=== PATIENT | male | born 1950 | race Caucasian/White ===

== ENCOUNTER 2016-12-04 10:32 | Inpatient (IN) | payer MEDICARE ==
[2016-12-04] VITALS (10 sets, daily range): BP systolic 99–145; BP diastolic 46–67; PULSE 73–104; RESP 15–20; TEMP 97.3–98.9; O2SAT 93–98
[~2016-12-04] VITALS: Ht 167.6 cm; Wt 52.7 kg
[~2016-12-04 10:32] MED LIST: FOLI1 PO; THIA100T PO; Z.0.OXYGENDME NC
[2016-12-04] MEDS ORDERED: SODIUM CHLOR 0.9% 1000 ML INJ 1,000 ML IV SCH ×2 (10:47→14:00)
--- NOTE | 2016-12-04 10:53 | PD ---
HPI Chief Complaint: General Weakness Time Seen by Provider: 10:38 Travel History International Travel<30 days: No Contact w/Intl Traveler<30days: No Traveled to known affect area: No History of Present Illness HPI The patient is a 66-year-old male who presents emergency department for generalized weakness, lower extremity weakness, and multiple falls. The patient states her last several weeks he has had decreasing energy and now states that his legs are "giving out ". The patient states he is also had multiple falls in the last week and it struck his head several times, denies any loss of consciousness. The patient does have a history of similar symptoms in the fall of 2016, he cannot recall the diagnosis. The patient does have a history of alcohol use, drinks approximately 1 pint of liquor per day. He denies any dark colored stools or black tarry stools over the last several weeks. The patient denies any chest pain, shortness breath, nausea, vomiting, or abdominal pain. He does complain of generalized lethargy and weakness. He does not currently have a primary physician. PFSH Past Medical History Autoimmune Disease: No Cancer: No Cardiovascular Problems: No Endocrine: No Genitourinary: No Immune Disorder: No Musculoskeletal: No Neurologic: No Psychiatric: No Reproductive: No Social History Alcohol Use: Yes (PT STATES 1 LARGE BOTTLE OF WINE AND BEER DAILY) Tobacco Use: Yes (2 PPD) Substance Use: No Allergies-Medications (Allergen,Severity, Reaction): Coded Allergies: No Known Allergies (Unverified , 12/04/16) Reported Meds & Prescriptions Reported Meds & Active Scripts Active Review of Systems Except as stated in HPI: all other systems reviewed are Neg General / Constitutional: No: Fever HENT: No: Lightheadedness Cardiovascular: No: Chest Pain or Discomfort Respiratory: No: Shortness of Breath Gastrointestinal: No: Nausea, Vomiting, Abdominal Pain Genitourinary: No: Dysuria Musculoskeletal: Positive: Weakness Neurologic: Positive: Weakness, No: Dizziness Psychiatric: Positive: Substance Abuse (alcohol abuse) Physical Exam Narrative GENERAL: Awake, alert, pleasant 66-year-old male who appears his stated age and is in no acute respiratory distress. SKIN: Focused skin assessment warm/dry. Pale complexion. HEAD: Atraumatic. Normocephalic. EYES: Pupils equal and round. Pallor to the lower lids and conjunctiva noted. ENT: No nasal bleeding or discharge. Dry mucous membranes. Poor dentition. NECK: Trachea midline. No JVD. CARDIOVASCULAR: Regular, tachycardic with a heart rate of 103. RESPIRATORY: No accessory muscle use. Clear to auscultation. Breath sounds equal bilaterally. GASTROINTESTINAL: Abdomen soft, non-tender, nondistended. No rebound tenderness. Rectal: No gross blood. Guaiac negative. MUSCULOSKELETAL: No obvious deformities. No clubbing. No cyanosis. No edema. NEUROLOGICAL: Awake and alert. No obvious cranial nerve deficits. Motor grossly within normal limits. Normal speech. Nonfocal. Oriented 3. Follows commands without difficulty. PSYCHIATRIC: Appropriate mood and affect; insight and judgment normal. Data Data Last Documented VS Vital Signs Date Time Temp Pulse Resp B/P Pulse Ox O2 Delivery O2 Flow Rate FiO2 12/04/16 12:46 87 18 110/53 96 Nasal Cannula 2 12/04/16 10:34 98.2 Orders Electrocardiogram (12/04/16 10:47) Complete Blood Count With Diff (12/04/16 10:47) Comprehensive Metabolic Panel (12/04/16 10:47) Creatine Kinase (Cpk) (12/04/16 10:47) Prothrombin Time / Inr (Pt) (12/04/16 10:47) Act Partial Throm Time (Ptt) (12/04/16 10:47) Troponin I (12/04/16 10:47) Thyroid Stimulating Hormone (12/04/16 10:47) Urinalysis - C+S If Indicated (12/04/16 10:47) Chest, Single Ap (12/04/16 10:47) Ct Brain W/O Iv Contrast(Rout) (12/04/16 10:47) Blood Glucose (12/04/16 10:47) Ecg Monitoring (12/04/16 10:47) Iv Access Insert/Monitor (12/04/16 10:47) Oximetry (12/04/16 10:47) Sodium Chloride 0.9% Flush (Ns Flush) (12/04/16 11:00) Sodium Chlor 0.9% 1000 Ml Inj (Ns 1000 M (12/04/16 10:47) Alcohol (Ethanol) (12/04/16 10:47) Lactic Acid (12/04/16 10:47) Potassium Chloride Eff (K-Lyte Cl Eff) (12/04/16 12:00) Iron/Tibc Profile (12/04/16 12:23) Ldh Serum (12/04/16 12:23) Type And Screen (12/04/16 12:23) Red Blood Cells (Rbc) (12/04/16 12:24) Blood Product Administration .UPON TRANSFUSION (12/04/16 12:24) Sodium Chlor 0.9% 250 Ml Inj (Ns 250 Ml (12/04/16 12:30) Diphenhydramine Inj (Benadryl Inj) (12/04/16 12:30) Acetaminophen (Tylenol) (12/04/16 12:30) Retic Count (12/04/16 12:43) Labs Laboratory Tests Test 12/04/16 12/04/16 12/04/16 10:45 11:15 11:50 Sodium Level 132 MEQ/L Potassium Level 2.6 MEQ/L Chloride Level 87 MEQ/L Carbon Dioxide Level 28.5 MEQ/L Anion Gap 17 MEQ/L Blood Urea Nitrogen 17 MG/DL Creatinine 1.24 MG/DL Estimat Glomerular Filtration 58 ML/MIN Rate Random Glucose 113 MG/DL Lactic Acid Level 3.6 mmol/L Calcium Level 8.1 MG/DL Total Bilirubin 1.5 MG/DL Aspartate Amino Transf 95 U/L (AST/SGOT) Alanine Aminotransferase 36 U/L (ALT/SGPT) Alkaline Phosphatase 140 U/L Total Creatine Kinase 77 U/L Troponin I LESS THAN 0.02 NG/ML Total Protein 6.8 GM/DL Albumin 2.9 GM/DL Thyroid Stimulating Hormone 3.420 uIU/ML 3rd Gen Ethyl Alcohol Level LESS THAN 3 MG/DL Urine Color LIGHT-RED Urine Turbidity CLEAR Urine pH 6.0 Urine Specific [place] 1.019 Urine Protein TRACE mg/dL Urine Glucose (UA) NEG mg/dL Urine Ketones 10 mg/dL Urine Occult Blood NEG Urine Nitrite NEG Urine Bilirubin NEG Urine Urobilinogen 4.0 MG/DL Urine Leukocyte Esterase NEG Urine RBC LESS THAN 1 /hpf Urine WBC 2 /hpf Urine Squamous Epithelial <1 /hpf Cells Urine Hyaline Casts 7 /lpf Urine Mucus FEW /lpf Microscopic Urinalysis Comment CATH-CULT NOT IND White Blood Count 27.8 TH/MM3 Red Blood Count 1.75 MIL/MM3 Hemoglobin 5.5 GM/DL Hematocrit 16.7 % Mean Corpuscular Volume 95.3 FL Mean Corpuscular Hemoglobin 31.3 PG Mean Corpuscular Hemoglobin 32.8 % Concent Red Cell Distribution Width 18.4 % Platelet Count 1037 TH/MM3 Mean Platelet Volume 9.2 FL Neutrophils (%) (Auto) % Lymphocytes (%) (Auto) % Monocytes (%) (Auto) % Eosinophils (%) (Auto) % Basophils (%) (Auto) % Neutrophils # (Auto) TH/MM3 Lymphocytes # (Auto) TH/MM3 Monocytes # (Auto) TH/MM3 Eosinophils # (Auto) TH/MM3 Basophils # (Auto) TH/MM3 CBC Comment AUTO DIFF Prothrombin Time 13.5 SEC Prothromb Time International 1.2 RATIO Ratio Activated Partial 25.5 SEC Thromboplast Time MDM Medical Decision Making Medical Screen Exam Complete: Yes Emergency Medical Condition: Yes Medical Record Reviewed: Yes Interpretation(s) EKG reveals normal sinus rhythm with a rate in 91. Sharp urine level of [address] and T-wave changes. Last Impressions Head CT 12/04/[id number] Signed Impressions: Service Date/Time: Sunday, December 04, 2016 11:18 - CONCLUSION: Negative for an acute process.. Phoenix Mcknight MD FACR Chest X-Ray 12/04/161046 Signed Impressions: Service Date/Time: Sunday, December 04, 2016 10:44 - CONCLUSION: COPD. No evidence of acute process. Harjinder Stubbs MD Laboratory Tests Test 12/04/16 12/04/16 12/04/16 10:45 11:15 11:50 Sodium Level 132 MEQ/L Potassium Level 2.6 MEQ/L Chloride Level 87 MEQ/L Carbon Dioxide Level 28.5 MEQ/L Anion Gap 17 MEQ/L Blood Urea Nitrogen 17 MG/DL Creatinine 1.24 MG/DL Estimat Glomerular Filtration 58 ML/MIN Rate Random Glucose 113 MG/DL Lactic Acid Level 3.6 mmol/L Calcium Level 8.1 MG/DL Total Bilirubin 1.5 MG/DL Aspartate Amino Transf 95 U/L (AST/SGOT) Alanine Aminotransferase 36 U/L (ALT/SGPT) Alkaline Phosphatase 140 U/L Total Creatine Kinase 77 U/L Troponin I LESS THAN 0.02 NG/ML Total Protein 6.8 GM/DL Albumin 2.9 GM/DL Thyroid Stimulating Hormone 3.420 uIU/ML 3rd Gen Ethyl Alcohol Level LESS THAN 3 MG/DL Urine Color LIGHT-RED Urine Turbidity CLEAR Urine pH 6.0 Urine Specific [place] 1.019 Urine Protein TRACE mg/dL Urine Glucose (UA) NEG mg/dL Urine Ketones 10 mg/dL Urine Occult Blood NEG Urine Nitrite NEG Urine Bilirubin NEG Urine Urobilinogen 4.0 MG/DL Urine Leukocyte Esterase NEG Urine RBC LESS THAN 1 /hpf Urine WBC 2 /hpf Urine Squamous Epithelial <1 /hpf Cells Urine Hyaline Casts 7 /lpf Urine Mucus FEW /lpf Microscopic Urinalysis Comment CATH-CULT NOT IND White Blood Count 27.8 TH/MM3 Red Blood Count 1.75 MIL/MM3 Hemoglobin 5.5 GM/DL Hematocrit 16.7 % Mean Corpuscular Volume 95.3 FL Mean Corpuscular Hemoglobin 31.3 PG Mean Corpuscular Hemoglobin 32.8 % Concent Red Cell Distribution Width 18.4 % Platelet Count 1037 TH/MM3 Mean Platelet Volume 9.2 FL Neutrophils (%) (Auto) % Lymphocytes (%) (Auto) % Monocytes (%) (Auto) % Eosinophils (%) (Auto) % Basophils (%) (Auto) % Neutrophils # (Auto) TH/MM3 Lymphocytes # (Auto) TH/MM3 Monocytes # (Auto) TH/MM3 Eosinophils # (Auto) TH/MM3 Basophils # (Auto) TH/MM3 CBC Comment AUTO DIFF Prothrombin Time 13.5 SEC Prothromb Time International 1.2 RATIO Ratio Activated Partial 25.5 SEC Thromboplast Time Differential Diagnosis Differential diagnosis includes symptomatic anemia, subdural hemorrhage, cirrhosis, hypoalbuminemia, failure to thrive, hyponatremia, dehydration. Narrative Course IV was established, labs are drawn and sent, and the patient was placed on cardiac telemetry monitoring and continuous pulse oximetry monitoring. EKG was ordered and interpreted. CT of the brain was ordered to rule out subdural hemorrhage. Chest x-ray was obtained. The patient was administered 1 L of IV fluids. The patient's white count is elevated, however, patient is afebrile. Hemoglobin is 5.5, therefore, the patient was ordered 2 units of packed red blood cells with 2 units to be held for later. The patient has symptomatic anemia with elevated white count and elevated platelets, consistent with withdrawal cytosis. I reviewed the EMR, patient is had elevated white count, anemia, and from cytosis in the past. Rectal exam was performed, was guaiac- negative. The patient will be admitted to the on-call medical service, he may benefit from hematology consultation. [facility] Point of Care Internal Pos. & Neg. Controls: Passed Fecal Specimen Occult Blood: Negative Physician Communication Physician Communication The on-call medical service was paged for admission. I discussed the patient with Dr. Prince who agrees with admission. Diagnosis Primary Impression: Symptomatic anemia Additional Impressions: Leukocytosis Qualified Code: D72.829 - Leukocytosis, unspecified type Thrombocytosis Admitting Information Admitting Physician Requests: Admit Condition: Stable Titi Gay MD December 04, 2016 10:53
[2016-12-04] MEDS ORDERED: SODIUM CHLORIDE 0.9% FLUSH 10 ML FLUSH IVF PRN (11:00)
--- NOTE | 2016-12-04 11:08 | RADRPT ---
EXAM DATE/TIME: 12/04/2016 10:44 [facility] COMPARISON: CHEST SINGLE AP, March 30, 2016, 11:00. INDICATIONS : Patient states syncopal episode today. MEDICAL HISTORY : Chronic obstructive pulmonary disease. SURGICAL HISTORY : None. ENCOUNTER: Initial ACUITY: 1 day PAIN SCORE: 0/10 LOCATION: Bilateral chest FINDINGS: Lungs are hyperinflated. There is no evidence of consolidating airspace disease or mass. Heart and mediastinal structures are stable. CONCLUSION: COPD. No evidence of acute process. Harjinder Stubbs MD on December 04, 2016 at 11:05 Board Certified Radiologist. This report was verified electronically.
--- NOTE | 2016-12-04 11:28 | RADRPT ---
EXAM DATE/TIME: 12/04/2016 11:18 [facility] COMPARISON: No previous studies available for comparison. INDICATIONS : Generalized weakness, lower extremity weakness, and multiple falls. RADIATION DOSE: 36.58 CTDIvol (mGy) MEDICAL HISTORY : None SURGICAL HISTORY : None. ENCOUNTER: Initial ACUITY: 2 weeks PAIN SCALE: 6/10 LOCATION: cranial TECHNIQUE: Multiple contiguous axial images were obtained of the head. Using automated exposure control and adj ustment of the mA and/or kV according to patient size, radiation dose was kept as low as reasonably a chievable to obtain optimal diagnostic quality images. FINDINGS: CEREBRUM: The ventricles are normal for age. No evidence of midline shift, mass lesion, hemorrhage or acute in farction. No extra-axial fluid collections are seen. POSTERIOR FOSSA: The cerebellum and brainstem are intact. The 4th ventricle is midline. The cerebellopontine angle i s unremarkable. EXTRACRANIAL: The visualized portion of the orbits is intact. SKULL: The calvaria is intact. No evidence of skull fracture. CONCLUSION: Negative for an acute process.. Phoenix Mcknight MD FACR on December 04, 2016 at 11:25 Board Certified Radiologist. This report was verified electronically.
[2016-12-04 11:45] LABS: BLOOD, URINE NEG (NEG); COMMENT (UR) CATH-CULT NOT IND; CULTURE IF INDICATED CATH CULTURE NOT IND; GLUCOSE,URINE NEG (NEG); HYALINE CAST, URINE 7 /lpf (RARE); KETONE, URINE 10 mg/dL (NEG); MUCUS URINE FEW /lpf (OCC); NITRITE,URINE NEG (NEG); SQUAMOUS EPITHELIAL CELL URINE <1 /hpf (0-5); URINE COLOR LIGHT-RED (YELLW/STRAW)
[2016-12-04 11:49] LABS: ALT (GPT) 36 U/L (12-78); ANION GAP 17 MEQ/L (5-15); AST (GOT) 95 U/L (15-37); BICARBONATE 28.5 MEQ/L (21.0-32.0); BLOOD UREA NITROGEN 17 MG/DL (7-18); CHLORIDE 87 MEQ/L (98-107); GLOMERULAR FILTRATION RATE 58 ML/MIN (>89); SODIUM (NA) 132 MEQ/L (136-145)
[2016-12-04 11:56] LABS: POTASSIUM 2.6 MEQ/L (3.5-5.1)
[2016-12-04 11:57] LABS: ALKALINE PHOSPHATASE 140 U/L (45-117); TOTAL BILIRUBIN ADULT 1.5 MG/DL (0.2-1.0)
[2016-12-04] MEDS ORDERED: POTASSIUM CHLORIDE 25 MEQ EFFERVESCENT TAB PO ONE (12:00)
[2016-12-04 12:01] LABS: CREATINE KINASE 77 U/L (39-308)
[2016-12-04 12:11] LABS: MEAN CELL VOLUME 95.3 FL (80.0-100.0); MEAN CORPUSCULAR HEMOGLOBIN 31.3 PG (27.0-34.0); MEAN CORPUSCULAR HGB CONC 32.8 % (32.0-36.0); PLATELET COUNT 1037 TH/MM3 (150-450); RED BLOOD COUNT 1.75 MIL/MM3 (4.50-5.90); RED CELL DISTRIBUTION WIDTH 18.4 % (11.6-17.2); WHITE BLOOD COUNT 27.8 TH/MM3 (4.0-11.0)
[2016-12-04 12:18] LABS: HEMO FLAGS AUTO DIFF
[2016-12-04 12:19] LABS: HEMATOCRIT 16.7 % (39.0-51.0)
[2016-12-04 12:24] LABS: INTERNATIONAL NORMALIZED RATIO 1.2 RATIO; PROTHROMBIN TIME - PATIENT 13.5 SEC (9.8-11.6)
[2016-12-04 12:25] LABS: APTT (PATIENT) 25.5 SEC (24.3-30.1)
[2016-12-04] MEDS ORDERED: diphenhydrAMINE HCL 50 MG/ML VIAL IV PRN (12:30)
[2016-12-04] MEDS ORDERED: ACETAMINOPHEN 325 MG TAB PO PRN ×2 (12:30→16:00)
[2016-12-04] MEDS ORDERED: SODIUM CHLOR 0.9% 250 ML INJ 250 ML IV ONE (12:30)
[2016-12-04 12:49] LABS: BANDS 34 % (0-6); BASOPHILS 3 % (0-2); METAMYELOCYTES 1 % (0-1); MYELOCYTES 8 % (0-0); NEUTROPHIL # MANUAL DIFF 24.7 TH/MM3 (1.8-7.7); PLATELET ESTIMATE SMEAR HIGH (NORMAL); PLATELET MORPHOLOGY NORMAL (NORMAL); POLYS (SEG NEUTROPHILS) 46 % (16-70); WBC DIFF SAMPLE 100
[2016-12-04 12:50] LABS: SCAN/DIFF FINAL DIFF MANUAL
--- NOTE | 2016-12-04 13:05 | HHI.HP ---
[facility] Service Family Medicine Primary Care Physician No Primary Care Physician Admission Diagnosis symptomatic anemia, thrombocytosis, leukocytosis, hypokalemia Diagnoses: International Travel<30 Days: No Contact w/Intl Traveler<30days: No Known Affected Area: No History of Present Illness Patient is a 66 year old male with a PMH significant for alcoholism and chronic anemia who presents with two-week history of bilateral LE weakness and falls. He has fallen 6 times in the last week due to "legs gave out." He has no preceding dizziness, headache, chest pain, palpitations, or paresthesias. He is able to walk normally at baseline but legs suddenly give out. He falls down and hit his head on the pavement, and has had no LOC ever. He does endorse some shortness of breath over the last couple of weeks as well. He feels tremulous after the episodes and is told he looks pale afterward. He has chronic bowel incontinence intermittently but denies loss of urine during falls. He denies upper extremity or focal weakness. No sick contacts or recent illnesses. He has a history of anemia per EMR last hospitalization in March 2016 at [facility] and patient states he recalls this vaguely. He recalls getting a transfusion at that time. Denies any current bleeding episodes, however, he does note having black stools with last few months. He reports not eating well due to poor appetite chronically. He has never had a colonoscopy. On review of records, patient was evaluated by medical oncology in February 2016; extensive workup was initiated including infectious workup, hematologic workup. He received 2 units of PRBCs. A bone marrow biopsy was recommended at that time and patient declined. (Maddy Prince MD R1) Review of Systems Constitutional: DENIES: Fever, Weight loss, Chills, Change in appetite Eyes: DENIES: Blurred vision, Diplopia Ears, nose, mouth, throat: DENIES: Tinnitus, Hearing loss, Throat pain, Ear Pain Respiratory: COMPLAINS OF: Shortness of breath, DENIES: Cough, Snoring, Wheezing, Hemoptysis Cardiovascular: DENIES: Chest pain, Palpitations, Syncope Gastrointestinal: COMPLAINS OF: Diarrhea (loose stools), DENIES: Abdominal pain, Black stools, Bloody stools, Constipation, Nausea, Vomiting Genitourinary: DENIES: Urinary frequency, Dysuria Musculoskeletal: DENIES: Joint pain, Muscle aches, Back pain Integumentary: DENIES: Pruritus, Rash Hematologic/lymphatic: DENIES: Bruising Neurologic: COMPLAINS OF: Tremor (after falls), Poor Balance, DENIES: Headache , Paresthesias, Seizures Psychiatric: DENIES: Anxiety, Confusion (Maddy Prince MD R1) Past Family Social History Past Medical History Anemia Bowel Incontinence related to alcohol use Past Surgical History None Reported Medications Reported Meds & Active Scripts Active (Maddy Prince MD R1) Allergies: Coded Allergies: No Known Allergies (Unverified , 12/04/16) Family History Mother: unknown Father: unknown causes, 3 MIs Siblings: alcoholics Children: daughter is healthy, hx alcohol and illicit drugs Social History Nicotine: smokes ~2ppd for 15 years Alcohol: pint of rum daily for years, trying to quit Illicit: marijuana Lives in [place] [facility] [place], home built in [address] (Maddy Prince MD R1) Physical Exam Vital Signs Vital Signs Date Time Temp Pulse Resp B/P Pulse Ox O2 Delivery O2 Flow Rate FiO2 12/04/16 12:46 87 18 110/53 96 Nasal Cannula 2 12/04/16 11:17 90 20 121/55 98 Room Air 12/04/16 11:04 88 20 145/67 93 Room Air 12/04/16 10:46 99 20 93 Room Air 12/04/16 10:34 98.2 104 15 99/46 95 Physical Exam GENERAL: Patient is a thin male lying in bed comfortably. SKIN: Warm and dry. Healing abrasions on the left knee and right dykes noted. His fingernails and toenails are dirty and he appears unkempt. HEAD: Atraumatic. Normocephalic. No scalp or cervical spine tenderness. EYES: PERRL. No scleral icterus. No injection or drainage. He does have conjunctival pallor. ENT: No nasal bleeding or discharge. Mucous membranes pink and moist. Uvula is midline and the tonsils are normal in appearance. NECK: Trachea midline. No JVD. CARDIOVASCULAR: Regular rate and rhythm. He does have a systolic ejection murmur at the LUSB RESPIRATORY: No accessory muscle use. Clear to auscultation. No crackles, wheezes,or rhonchi GASTROINTESTINAL: Abdomen soft, thin, non-tender, nondistended. Hepatic and splenic margins not palpable. Bowel sounds normal. MUSCULOSKELETAL: Extremities have 2+ pulses bilaterally in the UEs and LEs. He is noted to have 1+ pitting edema in the ankles bilaterally. No obvious deformities. NEUROLOGICAL: Awake and alert. fire boss II-XII intact. 2+ flexes in the patellae. Motor grossly within normal limits. His UAs and LEs have 5/5 strength on exam. Normal speech. PSYCHIATRIC: Appropriate mood and affect; insight and judgment normal. Laboratory Laboratory Tests Test 12/04/16 12/04/16 12/04/16 10:45 11:15 11:50 Sodium Level 132 Potassium Level 2.6 Chloride Level 87 Carbon Dioxide Level 28.5 Anion Gap 17 Blood Urea Nitrogen 17 Creatinine 1.24 Estimat Glomerular Filtration 58 Rate Random Glucose 113 Lactic Acid Level 3.6 Calcium Level 8.1 Total Bilirubin 1.5 Aspartate Amino Transf 95 (AST/SGOT) Alanine Aminotransferase 36 (ALT/SGPT) Alkaline Phosphatase 140 Total Creatine Kinase 77 Troponin I LESS THAN 0.02 Total Protein 6.8 Albumin 2.9 Thyroid Stimulating Hormone 3.420 3rd Gen Ethyl Alcohol Level LESS THAN 3 Urine Color LIGHT-RED Urine Turbidity CLEAR Urine pH 6.0 Urine Specific [place] 1.019 Urine Protein TRACE Urine Glucose (UA) NEG Urine Ketones 10 Urine Occult Blood NEG Urine Nitrite NEG Urine Bilirubin NEG Urine Urobilinogen 4.0 Urine Leukocyte Esterase NEG Urine RBC LESS THAN 1 Urine WBC 2 Urine Squamous Epithelial <1 Cells Urine Hyaline Casts 7 Urine Mucus FEW Microscopic Urinalysis Comment CATH-CULT NOT IND White Blood Count 27.8 Red Blood Count 1.75 Hemoglobin 5.5 Hematocrit 16.7 Mean Corpuscular Volume 95.3 Mean Corpuscular Hemoglobin 31.3 Mean Corpuscular Hemoglobin 32.8 Concent Red Cell Distribution Width 18.4 Platelet Count 1037 Mean Platelet Volume 9.2 Neutrophils (%) (Auto) Lymphocytes (%) (Auto) Monocytes (%) (Auto) Eosinophils (%) (Auto) Basophils (%) (Auto) Neutrophils # (Auto) Lymphocytes # (Auto) Monocytes # (Auto) Eosinophils # (Auto) Basophils # (Auto) CBC Comment AUTO DIFF Differential Total Cells 100 Counted Neutrophils % (Manual) 46 Band Neutrophils % 34 Lymphocytes % 4 Monocytes % 4 Basophils % 3 Neutrophils # (Manual) 24.7 Metamyelocytes 1 Myelocytes 8 Differential Comment FINAL DIFF MANUAL Platelet Estimate HIGH Platelet Morphology Comment NORMAL Prothrombin Time 13.5 Prothromb Time International 1.2 Ratio Activated Partial 25.5 Thromboplast Time (Maddy Prince MD R1) Result Diagram: 12/04/16 1150 12/04/16 1045 Imaging Last Impressions Head CT 12/04/16 1047 Signed Impressions: Service Date/Time: Sunday, December 04, 2016 11:18 - CONCLUSION: Negative for an acute process.. Phoenix Mcknight MD FACR Chest X-Ray 12/04/16 1047 Signed Impressions: Service Date/Time: Sunday, December 04, 2016 10:44 - CONCLUSION: COPD. No evidence of acute process. Harjinder Stubbs MD (Maddy Prince MD R1) Assessment and Plan Assessment and Plan 66-year-old male with a history of alcoholism who presents with lower extremity weakness and symptomatic anemia without evidence of shock. Code Status Full code Discussed Condition With Seen and discussed with Dr. Vernon and Dr. Gardiner (Maddy Prince MD R1) Attending Attestation Patient seen and examined. Case reviewed and discussed with the resident team. Agree with plan of care as discussed with me and documented in the resident note. (Poppy Vernon MD) Problem List: (1) Severe anemia Status: Acute Plan: He presents with severe anemia, H&H 5.5/16.7. Unclear etiology. He presented similarly in February 2016, however, his hemoglobin was somewhat higher at 6.5 at that time and he was discharged after 2 units PRBCs and extensive nondiagnostic workup. His symptoms of lower extremity weakness are likely related to his anemia. Coag profile is within normal limits. Iron levels are low , TIBC is low, percent saturation is high. He is only mildly tachycardic at this time with no evidence of shock. Plan: * Status post 1L NS bolus * 2 units PRBCs ordered in ED, 2 units to be administered. Will check repeat H& H and order 2 units if needed. Goal Hgb > 8 * Isotonic IVF at 100 mL per hour with 40 mEq potassium per liter * Will monitor fluid status closely, noted to have significant hypokalemia on admission * We'll check posttransfusion H&H and monitor H&Hs for trends * Gastroenterology consult to assess for possible GI acute versus chronic losses * Hematology consult to assess blood dyscrasia as patient also has significant leukocytosis and thrombocytosis. His reticulocyte count is low. This could possibly be related to intrinsic bone marrow disorder or malignancy; was recommended the patient get bone marrow biopsy in past evaluation but patient declined * Peripheral blood smear ordered and pending (2) Weakness of both lower extremities Status: Acute Plan: Patient presents with two-week history of falls related to lower sternum and weakness. This is likely related to alcoholism and symptomatic anemia. He also has metabolic disturbances, most notably hypokalemia and hypomagnesemia. Patient is neurologically normal and lower extremities have normal strength on exam. CT of the head was performed in ED and showed no evidence of acute bleed. Plan: * Correct anemia as above * Replete electrolytes and monitor levels * PT assessment * Monitor neuro exam (3) Hypokalemia Status: Acute Plan: Likely multifactorial. He reports poor nutrition and is a chronic alcoholic. EKG is unremarkable. Plan: * Status post 50 mEq potassium in ED by mouth * Monitor on telemetry * Potassium in IVF * Recheck BMP this evening and in the morning * Continue to replete by mouth and per IV as needed (4) Dyspnea Status: Acute Plan: Likely related to anemia. Plan: * Nasal cannula oxygen supplementation as needed, wean to go O2 greater than 92% * Per EMR, patient might have COPD; will add Duonebs when necessary. CXR performed in ED was unremarkable (5) Leukocytosis Status: Chronic Plan: Patient noted to have a significant leukocytosis on admission. This is chronic, with WBC noted to be as high as 33K in late 2016. Patient was evaluated by medical oncology at that time and bone marrow biopsy was recommended which patient declined. There is no evidence of infection. Plan: * Monitor CBC * Peripheral smear as above * Hematology consult as above (6) Platelet disorder Status: Chronic Plan: Chronic thrombocytosis, work-up and management as above. (7) Alcoholism Status: Chronic Plan: Chronic alcoholism noted. He claims to drink a pint of rum daily and notes that he has never fully stopped alcohol. Denies history of seizure. Plan: * CIWA protocol * Folate, thiamine, multivitamin by mouth * Seizure precautions per CIWA * Glucose monitoring per CIWA * Managed electrolytes as above * Case management (8) Tobacco abuse Status: Chronic Plan: Chronic. Almost 2 pack per day smoking history. Nicotine high-dose patch given. (9) Fluids/Electrolytes/Nutrition/Prophylaxis Status: Acute Plan: Fluids: tolerating PO/NS @ 100ml/hr Electrolytes: monitor and replete as needed Nutrition: Regular diet DVT Prophylaxis: Bilateral SCDs only give likely acute blood loss GI prophylaxis: Not indicated (Maddy Prince MD R1) Physician Certification 2 Midnight Certification Type: Admission for Inpatient Services Order for Inpatient Services The services are ordered in accordance with Medicare regulations or non- Medicare payer requirements, as applicable. In the case of services not specified as inpatient-only, they are appropriately provided as inpatient services in accordance with the 2-midnight benchmark. Estimated LOS (days): 3 days is the estimated time the patient will need to remain in the hospital, assuming treatment plan goals are met and no additional complications. Post-Hospital Plan: Not yet determined (Maddy Prince MD R1) Problem Qualifiers (1) Dyspnea: Qualified Code: R06.09 - Dyspnea on exertion (2) Leukocytosis: Qualified Code: D72.829 - Leukocytosis, unspecified type Maddy Prince MD R1 December 04, 2016 13:05 Poppy Vernon MD December 05, 2016 11:07
[2016-12-04 13:27] LABS: LDH SERUM 255 U/L (87-241); TRANSFERRIN IRON PROFILE 114 MG/DL (200-360)
[2016-12-04 13:28] LABS: RETIC % 0.9 % (0.4-3.0); REVIEW FLAG FINAL
[2016-12-04] MEDS ORDERED: LORazepam 2 MG TAB PO PRN (13:30)
[2016-12-04] MEDS ORDERED: LORazepam 2 MG/ML VIAL IV PUSH PRN ×4 (13:30)
[2016-12-04] MEDS ORDERED: SODIUM CHLORIDE 0.9% FLUSH 10 ML FLUSH IV FLUSH PRN (13:30)
[2016-12-04] MEDS ORDERED: NALOXONE HCL 0.4 MG/ML AMP IV PRN ×2 (13:30→16:00)
[2016-12-04] MEDS ORDERED: LORazepam 1 MG TAB PO PRN (13:30)
[2016-12-04] MEDS ORDERED: FLUMAZENIL 0.5 MG/5 ML VIAL IV PUSH PRN (13:30)
[2016-12-04] MEDS ORDERED: ONDANSETRON HCL 4 MG/2 ML VIAL IVP PRN (13:30)
[2016-12-04] MEDS: FOLIC ACID 1 MG TAB PO SCH (14:02)
[2016-12-04] MEDS: MULTIVITAMINS/MINERALS THERAPEUTIC TAB PO SCH (14:03)
[2016-12-04] MEDS: NICOTINE 21 MG/24 HR PATCH T-DERMAL SCH (14:05)
[2016-12-04] MEDS ORDERED: MAGNESIUM SULFATE 1 GM PREMIX 100 ML IV ONE (14:45)
[2016-12-04] MEDS ORDERED: HALOPERIDOL LACTATE 5 MG/ML AMP IM PRN (15:00)
[2016-12-04] MEDS ORDERED: RESP: ALBUTEROL 2.5 MG/IPRATROPIUM 0.5 MG NEB (PRN) NEB (15:00)
[2016-12-04] MEDS ORDERED: MORPHINE SULFATE 4 MG/ML INJ IV PRN (16:00)
[2016-12-04] MEDS ORDERED: IBUPROFEN 400 MG TAB PO PRN (16:00)
[2016-12-04] MEDS: NS + KCL 40 MEQ INJ 1,000 ML IV SCH (16:55)
--- NOTE | 2016-12-04 16:57 | PD.CONS ---
HPI History of Present Illness This is a 66 year old male who came to the ER for severe generalized weakness and was found to have severe anemia with thrombocytosis- HH was 5.5/16.7, Platelets 1037. He reports that he has a long history of anemia. He was evaluated by Dr. Muhammad in February of 2016 for severe anemia with thrombocytosis. He had the workup for hemolysis with haptoglobin 180, LDH 281. He also had a peripheral smear which revealed marked leukocytosis and thrombocytosis, severe normochromic normocytic anemia. He was also noted to have an elevated ferritin at that time and underwent workup for hemochromatosis with Hfe gene- not detected. JAK2 mutation was not detected. He reports that he did not follow up with hematology for any further testing after discharge. He has never been seen by a chief clerk and has never had an EGD/Colonoscopy. He reports that he has been tired for awhile, but that this suddenly became worse about 2 weeks ago. He also reports that he has been having shortness of breath on exertion and diarrhea x 2 weeks. He states that he has been having 3-4 liquid stools per day and just recently started taking imodium for this. He has had this in the past and states that it resolved with imodium. He cannot say how long ago he had this, but states this episode started 2 weeks ago. He denies any suspicious food, sick contacts, travel, or recent antibiotic use. He denies any decreased appetite, nausea, vomiting, abdominal pain, heartburn, reflux, melena, hematochezia. He denies any family hx of cancer. He does drink 1 pint of liquor per day. He will occasionally take NSAID such as Ibuprofen if he has a headache, but nothing on a regular basis. (Karen Eric) PFSH Past Medical History Normocytic anemia Thrombocytosis Hx elevated ferritin level Chronic leukocytosis ETOH abuse Past Surgical History Denies (Karen Eric) Coded Allergies: No Known Allergies (Unverified , 12/04/16) Medications Allergies Coded Allergies Type Severity Reaction Last Updated Verified No Known Allergies 12/04/16 No Active Scripts Medications Dose Route/Sig Days Date Category Family History Denies any known family hx of cancer. Mother from old age Father from [place] Social History Smokes a little less than 2 packs per day x 20 years. Drinks 1 pint liqour per day (Karen Eric HUBERT) Review of Systems Constitutional: COMPLAINS OF: Fatigue, DENIES: Fever, Chills, Change in appetite Respiratory: COMPLAINS OF: Cough Cardiovascular: DENIES: Chest pain Gastrointestinal: COMPLAINS OF: Diarrhea, DENIES: Abdominal pain, Black stools , Bloody stools, Constipation, Nausea, Vomiting, Swelling of Abdomen, Heartburn , Hematemesis Musculoskeletal: COMPLAINS OF: Joint pain Hematologic/lymphatic: COMPLAINS OF: Bruising Neurologic: COMPLAINS OF: Headache Psychiatric: DENIES: Confusion (Karen Eric HUBERT) GI Exam Vitals I&O Vital Signs Date Time Temp Pulse Resp B/P Pulse Ox O2 Delivery O2 Flow Rate FiO2 12/04/16 14:36 98.5 90 18 112/54 96 Nasal Cannula 2 12/04/16 14:24 Nasal Cannula 2.00 12/04/16 14:15 98.5 82 18 110/53 96 Nasal Cannula 2 12/04/16 12:46 87 18 110/53 96 Nasal Cannula 2 12/04/16 11:17 90 20 121/55 98 Room Air 12/04/16 11:04 88 20 145/67 93 Room Air 12/04/16 10:46 99 20 93 Room Air 12/04/16 10:34 98.2 104 15 99/46 95 Imaging Last Impressions Head CT 12/04/16 1047 Signed Impressions: Service Date/Time: Sunday, December 04, 2016 11:18 - CONCLUSION: Negative for an acute process.. Phoenix Mcknight MD FACR Chest X-Ray 12/04/16 1047 Signed Impressions: Service Date/Time: Sunday, December 04, 2016 10:44 - CONCLUSION: COPD. No evidence of acute process. Harjinder Stubbs MD Laboratory Test 12/04/16 12/04/16 12/04/16 12/04/16 10:45 11:15 11:46 11:50 Sodium Level 132 MEQ/L Potassium Level 2.6 MEQ/L Chloride Level 87 MEQ/L Carbon Dioxide Level 28.5 MEQ/L Anion Gap 17 MEQ/L Blood Urea Nitrogen 17 MG/DL Creatinine 1.24 MG/DL Estimat Glomerular Filtration 58 ML/MIN Rate Random Glucose 113 MG/DL Lactic Acid Level 3.6 mmol/L Calcium Level 8.1 MG/DL Magnesium Level 1.3 MG/DL Total Bilirubin 1.5 MG/DL Aspartate Amino Transf 95 U/L (AST/SGOT) Alanine Aminotransferase 36 U/L (ALT/SGPT) Alkaline Phosphatase 140 U/L Total Creatine Kinase 77 U/L Troponin I LESS THAN 0.02 NG/ML Total Protein 6.8 GM/DL Albumin 2.9 GM/DL Thyroid Stimulating Hormone 3.420 uIU/ML 3rd Gen Ethyl Alcohol Level LESS THAN 3 MG/DL Urine Color LIGHT-RED Urine Turbidity CLEAR Urine pH 6.0 Urine Specific [place] 1.019 Urine Protein TRACE mg/dL Urine Glucose (UA) NEG mg/dL Urine Ketones 10 mg/dL Urine Occult Blood NEG Urine Nitrite NEG Urine Bilirubin NEG Urine Urobilinogen 4.0 MG/DL Urine Leukocyte Esterase NEG Urine RBC LESS THAN 1 /hpf Urine WBC 2 /hpf Urine Squamous Epithelial <1 /hpf Cells Urine Hyaline Casts 7 /lpf Urine Mucus FEW /lpf Microscopic Urinalysis Comment CATH-CULT NOT IND Iron Level 158 MCG/DL Total Iron Binding Capacity 160 MCG/DL Percent Iron Saturation 99.0 % Lactate Dehydrogenase 255 U/L Blood Type O POSITIVE Antibody Screen NEGATIVE White Blood Count 27.8 TH/MM3 Red Blood Count 1.75 MIL/MM3 Hemoglobin 5.5 GM/DL Hematocrit 16.7 % Mean Corpuscular Volume 95.3 FL Mean Corpuscular Hemoglobin 31.3 PG Mean Corpuscular Hemoglobin 32.8 % Concent Red Cell Distribution Width 18.4 % Platelet Count 1037 TH/MM3 Mean Platelet Volume 9.2 FL Neutrophils (%) (Auto) % Lymphocytes (%) (Auto) % Monocytes (%) (Auto) % Eosinophils (%) (Auto) % Basophils (%) (Auto) % Neutrophils # (Auto) TH/MM3 Lymphocytes # (Auto) TH/MM3 Monocytes # (Auto) TH/MM3 Eosinophils # (Auto) TH/MM3 Basophils # (Auto) TH/MM3 CBC Comment AUTO DIFF Differential Total Cells 100 Counted Neutrophils % (Manual) 46 % Band Neutrophils % 34 % Lymphocytes % 4 % Monocytes % 4 % Basophils % 3 % Neutrophils # (Manual) 24.7 TH/MM3 Metamyelocytes 1 % Myelocytes 8 % Differential Comment FINAL DIFF MANUAL Platelet Estimate HIGH Platelet Morphology Comment NORMAL Blood Smear Pathologist Review Reticulocyte Count 0.9 % Absolute Reticulocyte Count 16.7 MIL/L Prothrombin Time 13.5 SEC Prothromb Time International 1.2 RATIO Ratio Activated Partial 25.5 SEC Thromboplast Time Test 12/04/16 13:07 Crossmatch Leukocyte-Reduced Red Blood Cells Blood Bank Comment Physical Examination HEENT: Normocephalic; atraumatic; no jaundice. CHEST: CTA, diminished CARDIAC: RRR ABDOMEN: Soft, nondistended, nontender; no hepatosplenomegaly; bowel sounds are present in all four quadrants. EXTREMITIES: No clubbing, cyanosis, or edema. 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 (EricKaren Delgado HUBERT) Assessment and Plan Plan ASSESSMENT: - Severe anemia. Previous hematology workup with haptoglobin, LDH in 2016. He has never had EGD/Colonoscopy. He denies any obvious GI blood loss. He does have diarrhea, but otherwise has not had any GI symptoms or obvious blood loss. He does drink heavily- 1 pint per day. Will plan for EGD/Colonoscopy. This admission, HH 5.5 /16.7. Absolute Retic 16.7, LDH 255. S/P 2 units PRBC. Will plan for egd/colonoscopy in am. Will also get hematology evaluation, as suspect there is some sort of underlying hematologic issue given his anemia, leukocytosis, thrombocytosis. - Iron saturation 99.0. Previous Hfe gene not detected in 2016. - Diarrhea. Diarrhea x 2 weeks with 3-4 BMs per day. No risk factors for infectious etiology. Stool studies. EGD/Colonoscopy in am. - Elevated LFTs with T. Bili 1.5, AST 95, ALT 36, ALk Phosph 140. Drinks 1 pint per day. Get RUQ US. - Thrombocytosis. Plts 1037. These are chronically elevated. Previous JAK2 mutation was negative. - Chronic leukocytosis. WBC 27.8. Pt has had intermittent leukocytosis. Will check for CDiff since he is having diarrhea, but suspect that he has a hematologic issue going on here. - Severe electrolyte abnormalities. Per primary - ETOH abuse, drinks 1 pint per day. DT precautions per primary PLAN: - Plan for EGD/Colonoscopy - Obtain consents - Clear liquids - NPO after MN - Golytely - Cont. PPI - Haptoglobin - Ferritin - CDiff, O&P, C/S, WBC, Giardia, Cryptosporidia, Cyclosporia - Consult hematology - Supportive care - Further recommendations to follow based on results of above - Pt seen and examined by Dr. Shania vega myself and this note is written on her bhealf (Karen Eric) Physician Comments seen, examined agree with above (Patricia Jauregui MD) Karen Eric December 04, 2016 16:57 Patricia Jauregui MD December 04, 2016 20:04
[2016-12-04] MEDS ORDERED: PEG (High)/E-LYTE SOLN 4000 ML BTL PO ONE (17:00)
[2016-12-04] MEDS ORDERED: LORazepam 2 MG/ML VIAL IV ONE (17:00)
[2016-12-04] MEDS: SODIUM CHLORIDE 0.9% FLUSH 10 ML FLUSH IV FLUSH SCH (20:48)
[2016-12-04 21:30] LABS: HEMATOCRIT 24.3 % (39.0-51.0)
[2016-12-04 21:32] LABS: REVIEW FLAG FINAL
[2016-12-04 22:01] LABS: BICARBONATE 24.4 MEQ/L (21.0-32.0); POTASSIUM 3.8 MEQ/L (3.5-5.1)
[2016-12-05] VITALS (12 sets, daily range): BP systolic 106–136; BP diastolic 53–64; PULSE 70–92; RESP 17–20; TEMP 97.4–99.4; O2SAT 90–98
[2016-12-05] MEDS: NS + KCL 40 MEQ INJ 1,000 ML IV SCH ×3 (01:15→20:57)
--- NOTE | 2016-12-05 07:16 | MB ---
cc: KAYLEIGH ARVIZU M.D. DATE OF CONSULTATION 12/04/2016 REASON FOR CONSULTATION Consult requested by family practice resident for evaluation of anemia and thrombocytosis. HISTORY OF PRESENT ILLNESS This is a 66-year-old male. He came to the emergency room after he was found to have multiple falls and weakness of both lower legs. In the emergency room, the patient had a blood test. The CBC shows severe anemia with a hemoglobin of 5.5, white count of 27.8 and a platelet count of 1.037 million. The patient is admitted to the hospital. I have been asked to see the patient for anemia and thrombocytosis. The patient has been evaluated by Dr. Muhammad my associate. He had an extensive workup, however the patient did not keep the follow-up appointments. The flow cytometry revealed myeloproliferative disorder. The DARIEN-[address] Muhammad recommended bone marrow biopsy which apparently the patient had declined in the past. The patient has been complaining of cough, shortness of breath and dyspnea on exertion. He has been having multiple falls as he feels dizzy when he gets up. He denies any blood in the stool. GI has been consulted as well. They are planning to do upper endoscopy and colonoscopy. PAST MEDICAL HISTORY 1. Alcohol alcoholism 2. Tobaccoism 3. History of thrombocytosis with anemia. 4. History of elevated serum ferritin level with negative hemochromatosis gene analysis. PAST SURGICAL HISTORY None ALLERGIES None MEDICATIONS Please see EMR. FAMILY HISTORY Noncontributory SOCIAL HISTORY The patient smokes cigarettes one to two packs a day for at least 20 years, drinks alcohol heavily. PHYSICAL EXAM This is a well-developed, well-nourished elderly white male in no apparent distress. VITAL SIGNS: Temperature 98.9, heart rate 74, blood pressure 131/59. HEENT: PERRLA, EOMI, anicteric. No oral lesions noted. NECK: Supple. There is no cervical, supraclavicular or axillary lymphadenopathy noted. LUNGS: Clear. No wheezing, rhonchi or rales. HEART: Regular rate and rhythm. ABDOMEN: Soft and nontender. No hepatosplenomegaly. EXTREMITIES: No pedal edema. NEUROLOGIC: Awake, alert and oriented times threes. SKIN: No significant lesions noted. ASSESSMENT Leukocytosis with severe anemia and thrombocytosis. This is consistent with myeloproliferative disorder. PLAN I have reviewed his available records and I had an extensive discussion with the patient regarding the severe anemia, leukocytosis and thrombocytosis. The patient has been feeling dizzy due to the severe anemia. Whenever he tries to get up, he felt dizzy and had multiple falls. The patient is receiving blood transfusion. I recommended that we should get a bone marrow aspirate and biopsy to evaluate whether this may have progressed into acute leukemia. The patient agreed for the bone marrow biopsy. I will ask interventional radiologist for a CT-guided core needle biopsy of the bone marrow. We will ask the pathologist to send the specimen for flow cytometry and chromosome studies. On admission, the patient's alcohol level was zero. The patient has been evaluated by Dr. Muhammad, my associate, last year and I will ask him to follow him up tomorrow. Further recommendations based on his hospital stay. Thank you for asking my opinion. MD JUAN Muñoz/JEFF /7:11 PM /7:08 AM DIA
[2016-12-05 08:14] LABS: MEAN CORPUSCULAR HEMOGLOBIN 29.1 PG (27.0-34.0); MEAN CORPUSCULAR HGB CONC 33.5 % (32.0-36.0); PLATELET COUNT 828 TH/MM3 (150-450); RED BLOOD COUNT 2.38 MIL/MM3 (4.50-5.90); RED CELL DISTRIBUTION WIDTH 19.9 % (11.6-17.2); WHITE BLOOD COUNT 28.8 TH/MM3 (4.0-11.0)
[2016-12-05 08:25] LABS: HEMO FLAGS AUTO DIFF
[2016-12-05 08:30] LABS: HEMATOCRIT 20.7 % (39.0-51.0)
[2016-12-05 08:48] LABS: ALT (GPT) 26 U/L (12-78); ANION GAP 12 MEQ/L (5-15); AST (GOT) 67 U/L (15-37); BICARBONATE 28.4 MEQ/L (21.0-32.0); BLOOD UREA NITROGEN 11 MG/DL (7-18); CHLORIDE 101 MEQ/L (98-107); GLOMERULAR FILTRATION RATE 132 ML/MIN (>89); SODIUM (NA) 141 MEQ/L (136-145)
[2016-12-05 08:49] LABS: ALKALINE PHOSPHATASE 104 U/L (45-117); TOTAL BILIRUBIN ADULT 1.4 MG/DL (0.2-1.0)
[2016-12-05 08:56] LABS: POTASSIUM 2.8 MEQ/L (3.5-5.1)
[2016-12-05] MEDS: REMOVE OLD PATCH T-DERMAL SCH (09:00)
[2016-12-05] MEDS: SODIUM CHLORIDE 0.9% FLUSH 10 ML FLUSH IV FLUSH SCH ×2 (09:00→20:57)
[2016-12-05 09:01] LABS: BANDS 8 % (0-6); BASOPHILS 2 % (0-2); EOSINOPHILS 2 % (0-4); METAMYELOCYTES 1 % (0-1); MYELOCYTES 7 % (0-0); NEUTROPHIL # MANUAL DIFF 23.9 TH/MM3 (1.8-7.7); POLYS (SEG NEUTROPHILS) 67 % (16-70); WBC DIFF SAMPLE 100
[2016-12-05 09:03] LABS: PLATELET ESTIMATE SMEAR HIGH (NORMAL); PLATELET MORPHOLOGY NORMAL (NORMAL); SCAN/DIFF FINAL DIFF MANUAL
[2016-12-05] MEDS: NICOTINE 21 MG/24 HR PATCH T-DERMAL SCH (09:09)
[2016-12-05] MEDS: THIAMINE HCL 100 MG TAB PO SCH (09:09)
--- NOTE | 2016-12-05 10:30 | HHI.HP ---
[facility] Service Family Medicine Primary Care Physician No Primary Care Physician Admission Diagnosis symptomatic anemia, thrombocytosis, leukocytosis, hypokalemia Diagnoses: (1) Severe anemia Diagnosis: Principal (2) Weakness of both lower extremities Diagnosis: Principal (3) Hypokalemia Diagnosis: Principal (4) Dyspnea Diagnosis: Principal (5) Leukocytosis Diagnosis: Principal (6) Platelet disorder Diagnosis: Principal (7) Alcoholism Diagnosis: Principal (8) Tobacco abuse Diagnosis: Principal (9) Fluids/Electrolytes/Nutrition/Prophylaxis Diagnosis: Principal International Travel<30 Days: No Contact w/Intl Traveler<30days: No Known Affected Area: No History of Present Illness Mr Uribe is a 66 year old male with a PMH significant for alcoholism and chronic anemia who presents with two-week history of bilateral LE weakness and falls. He has fallen 6 times in the last week due to "legs gave out." He has no preceding dizziness, headache, chest pain, palpitations, or paresthesias. He is able to walk normally at baseline but legs suddenly give out. He falls down and hit his head on the pavement, and has had no LOC ever. He does endorse some shortness of breath over the last couple of weeks as well. He feels tremulous after the episodes and is told he looks pale afterward. He has chronic bowel incontinence intermittently but denies loss of urine during falls. He denies upper extremity or focal weakness. No sick contacts or recent illnesses. He has a history of anemia per EMR last hospitalization in March 2016 at [facility] and patient states he recalls this vaguely. He recalls getting a transfusion at that time. Denies any current bleeding episodes, however, he does note having black stools with last few months. He reports not eating well due to poor appetite chronically. He has never had a colonoscopy. On review of records, patient was evaluated by medical oncology in February 2016; extensive workup was initiated including infectious workup, hematologic workup. He received 2 units of PRBCs. A bone marrow biopsy was recommended at that time and patient declined. This hospitalization he has agreed to do more workup and is getting a bone marrow biopsy and panendoscopy. He does feel better after the blood transfusions. Review of Systems Other Constitutional: DENIES: Fever, Weight loss, Chills, Change in appetite Eyes: DENIES: Blurred vision, Diplopia Ears, nose, mouth, throat: DENIES: Tinnitus, Hearing loss, Throat pain, Ear Pain Respiratory: COMPLAINS OF: Shortness of breath, DENIES: Cough, Snoring, Wheezing, Hemoptysis Cardiovascular: DENIES: Chest pain, Palpitations, Syncope Gastrointestinal: COMPLAINS OF: Diarrhea (loose stools), DENIES: Abdominal pain, Black stools, Bloody stools, Constipation, Nausea, Vomiting Genitourinary: DENIES: Urinary frequency, Dysuria Musculoskeletal: DENIES: Joint pain, Muscle aches, Back pain Integumentary: DENIES: Pruritus, Rash Hematologic/lymphatic: DENIES: Bruising Neurologic: COMPLAINS OF: Tremor (after falls), Poor Balance, DENIES: Headache , Paresthesias, Seizures Psychiatric: DENIES: Anxiety, Confusion Past Family Social History Past Medical History Anemia Bowel Incontinence related to alcohol use Past Surgical History None Allergies: Coded Allergies: No Known Allergies (Unverified , 12/04/16) Family History Mother: unknown Father: unknown causes, 3 MIs Siblings: alcoholics Children: daughter is healthy, hx alcohol and illicit drugs Social History Nicotine: smokes ~2ppd for 15 years Alcohol: pint of rum daily for years, trying to quit Illicit: marijuana Lives in [place] alone, home built in [address] Physical Exam Vital Signs Vital Signs Date Time Temp Pulse Resp B/P Pulse Ox O2 Delivery O2 Flow Rate FiO2 12/05/16 08:00 99.0 82 18 106/53 90 12/05/16 04:00 98.2 70 18 126/59 96 12/05/16 00:00 98.6 78 18 111/54 93 12/04/16 20:00 77 12/04/16 20:00 97.9 76 18 133/58 98 12/04/16 17:04 98.9 74 17 131/59 93 12/04/16 16:48 98.9 73 17 118/56 93 12/04/16 16:00 97.3 80 18 111/56 93 12/04/16 14:36 98.5 90 18 112/54 96 Nasal Cannula 2 12/04/16 14:24 Nasal Cannula 2.00 12/04/16 14:15 98.5 82 18 110/53 96 Nasal Cannula 2 12/04/16 12:46 87 18 110/53 96 Nasal Cannula 2 12/04/16 11:17 90 20 121/55 98 Room Air 12/04/16 11:04 88 20 145/67 93 Room Air 12/04/16 10:46 99 20 93 Room Air 12/04/16 10:34 98.2 104 15 99/46 95 Physical Exam GENERAL: Patient is a thin male lying in bed comfortably, less pale after the blood transfusions. SKIN: Warm and dry. Healing abrasions on the left knee and right dykes noted. His fingernails and toenails are dirty and he appears unkempt. HEAD: Atraumatic. Normocephalic. No scalp or cervical spine tenderness. EYES: PERRL. No scleral icterus. No injection or drainage. He does have conjunctival pallor. ENT: No nasal bleeding or discharge. Mucous membranes pink and moist. Uvula is midline and the tonsils are normal in appearance. NECK: Trachea midline. No JVD. CARDIOVASCULAR: Regular rate and rhythm. He does have a systolic ejection murmur at the LUSB RESPIRATORY: No accessory muscle use. Clear to auscultation. No crackles, wheezes,or rhonchi GASTROINTESTINAL: Abdomen soft, thin, non-tender, nondistended. Hepatic and splenic margins not palpable. Bowel sounds normal. MUSCULOSKELETAL: Extremities have 2+ pulses bilaterally in the UEs and LEs. He is noted to have 1+ pitting edema in the ankles bilaterally. No obvious deformities. NEUROLOGICAL: Awake and alert. 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 2+ flexes in the patellae. Motor grossly within normal limits. His UAs and LEs have 5/5 strength on exam. Normal speech. PSYCHIATRIC: Appropriate mood and affect; insight and judgment normal. Laboratory Laboratory Tests Test 12/04/16 12/04/16 12/04/16 12/04/16 10:45 11:15 11:46 11:50 Haptoglobin 240 Sodium Level 132 Potassium Level 2.6 Chloride Level 87 Carbon Dioxide Level 28.5 Anion Gap 17 Blood Urea Nitrogen 17 Creatinine 1.24 Estimat Glomerular Filtration 58 Rate Random Glucose 113 Lactic Acid Level 3.6 Calcium Level 8.1 Magnesium Level 1.3 Ferritin 1192 Total Bilirubin 1.5 Aspartate Amino Transf 95 (AST/SGOT) Alanine Aminotransferase 36 (ALT/SGPT) Alkaline Phosphatase 140 Total Creatine Kinase 77 Troponin I LESS THAN 0.02 Total Protein 6.8 Albumin 2.9 Thyroid Stimulating Hormone 3.420 3rd Gen Ethyl Alcohol Level LESS THAN 3 Urine Color LIGHT-RED Urine Turbidity CLEAR Urine pH 6.0 Urine Specific Pioneer 1.019 Urine Protein TRACE Urine Glucose (UA) NEG Urine Ketones 10 Urine Occult Blood NEG Urine Nitrite NEG Urine Bilirubin NEG Urine Urobilinogen 4.0 Urine Leukocyte Esterase NEG Urine RBC LESS THAN 1 Urine WBC 2 Urine Squamous Epithelial <1 Cells Urine Hyaline Casts 7 Urine Mucus FEW Microscopic Urinalysis Comment CATH-CULT NOT IND Iron Level 158 Total Iron Binding Capacity 160 Percent Iron Saturation 99.0 Lactate Dehydrogenase 255 Blood Type O POSITIVE Antibody Screen NEGATIVE White Blood Count 27.8 Red Blood Count 1.75 Hemoglobin 5.5 Hematocrit 16.7 Mean Corpuscular Volume 95.3 Mean Corpuscular Hemoglobin 31.3 Mean Corpuscular Hemoglobin 32.8 Concent Red Cell Distribution Width 18.4 Platelet Count 1037 Mean Platelet Volume 9.2 Neutrophils (%) (Auto) Lymphocytes (%) (Auto) Monocytes (%) (Auto) Eosinophils (%) (Auto) Basophils (%) (Auto) Neutrophils # (Auto) Lymphocytes # (Auto) Monocytes # (Auto) Eosinophils # (Auto) Basophils # (Auto) CBC Comment AUTO DIFF Differential Total Cells 100 Counted Neutrophils % (Manual) 46 Band Neutrophils % 34 Lymphocytes % 4 Monocytes % 4 Basophils % 3 Neutrophils # (Manual) 24.7 Metamyelocytes 1 Myelocytes 8 Differential Comment FINAL DIFF MANUAL Platelet Estimate HIGH Platelet Morphology Comment NORMAL Blood Smear Pathologist Review Reticulocyte Count 0.9 Absolute Reticulocyte Count 16.7 Prothrombin Time 13.5 Prothromb Time International 1.2 Ratio Activated Partial 25.5 Thromboplast Time Test 12/04/16 12/04/16 12/05/16 13:07 21:15 07:37 Crossmatch Leukocyte-Reduced Red Blood Cells Blood Bank Comment Hemoglobin 8.1 6.9 Hematocrit 24.3 20.7 Sodium Level 136 141 Potassium Level 3.8 2.8 Chloride Level 97 101 Carbon Dioxide Level 24.4 28.4 Anion Gap 15 12 Blood Urea Nitrogen 13 11 Creatinine 0.81 0.61 Estimat Glomerular Filtration 95 132 Rate Random Glucose 80 76 Calcium Level 7.3 7.6 Protein Corrected Calcium 8.0 Total Protein 5.8 5.1 Vitamin B12 Level GREATER THAN 2000 Folate GREATER THAN 20.0 White Blood Count 28.8 Red Blood Count 2.38 Mean Corpuscular Volume 87.0 Mean Corpuscular Hemoglobin 29.1 Mean Corpuscular Hemoglobin 33.5 Concent Red Cell Distribution Width 19.9 Platelet Count 828 Mean Platelet Volume 9.2 Neutrophils (%) (Auto) Lymphocytes (%) (Auto) Monocytes (%) (Auto) Eosinophils (%) (Auto) Basophils (%) (Auto) Neutrophils # (Auto) Lymphocytes # (Auto) Monocytes # (Auto) Eosinophils # (Auto) Basophils # (Auto) CBC Comment AUTO DIFF Differential Total Cells 100 Counted Neutrophils % (Manual) 67 Band Neutrophils % 8 Lymphocytes % 6 Monocytes % 7 Eosinophils % 2 Basophils % 2 Neutrophils # (Manual) 23.9 Metamyelocytes 1 Myelocytes 7 Differential Comment FINAL DIFF MANUAL Platelet Estimate HIGH Platelet Morphology Comment NORMAL Total Bilirubin 1.4 Aspartate Amino Transf 67 (AST/SGOT) Alanine Aminotransferase 26 (ALT/SGPT) Alkaline Phosphatase 104 Albumin 2.1 Result Diagram: 12/05/16 0737 12/05/16 0737 Imaging Last Impressions Head CT 12/04/16 1047 Signed Impressions: Service Date/Time: Sunday, December 04, 2016 11:18 - CONCLUSION: Negative for an acute process.. Phoenix Mcknight MD FACR Chest X-Ray 12/04/161046 Signed Impressions: Service Date/Time: Sunday, December 04, 2016 10:44 - CONCLUSION: COPD. No evidence of acute process. Harjinder Stubbs MD Assessment and Plan Assessment and Plan 66-year-old male with a history of alcoholism who presents with lower extremity weakness and symptomatic anemia without evidence of shock. Problem List: (1) Severe anemia Status: Acute Plan: He presents with severe anemia, H&H 5.5/16.7. Unclear etiology. He presented similarly in February 2016, however, his hemoglobin was somewhat higher at 6.5 at that time and he was discharged after 2 units PRBCs and extensive nondiagnostic workup. His symptoms of lower extremity weakness and falls are likely related to his anemia. Coag profile is within normal limits. Iron levels are low, TIBC is low, percent saturation is high. He is only mildly tachycardic at this time with no evidence of shock. Plan: * Status post 1L NS bolus * 2 units PRBCs ordered in ED, 2 units to be administered. Will check repeat H& H and order 2 units if needed. Goal Hgb > 8, will need more blood today * Isotonic IVF at 100 mL per hour with 40 mEq potassium per liter, will need more K today * Will monitor fluid status closely, noted to have significant hypokalemia on admission * We'll check posttransfusion H&H and monitor H&Hs for trends * Gastroenterology consult to assess for possible GI acute versus chronic losses , panendoscopy today * Hematology consult to assess blood dyscrasia as patient also has significant leukocytosis and thrombocytosis. His reticulocyte count is low. This could possibly be related to intrinsic bone marrow disorder or malignancy; was recommended the patient get bone marrow biopsy in past evaluation but patient declined. he will have this done today * Peripheral blood smear ordered and pending (2) Weakness of both lower extremities Status: Acute Plan: Patient presents with two-week history of falls related to lower extremity weakness. This is likely related to alcoholism and symptomatic anemia. He also has metabolic disturbances, most notably hypokalemia and hypomagnesemia. Patient is neurologically normal and lower extremities have normal strength on exam. CT of the head was performed in ED and showed no evidence of acute bleed. Plan: * Correct anemia as above * Replete electrolytes and monitor levels * PT assessment * Monitor neuro exam (3) Hypokalemia Status: Acute Plan: Likely multifactorial. He reports poor nutrition and is a chronic alcoholic. EKG is unremarkable. Plan: * Status post 50 mEq potassium in ED by mouth * Monitor on telemetry * Potassium in IVF * Recheck BMP this evening and in the morning * Continue to replete by mouth and per IV as needed (4) Dyspnea Status: Acute Plan: Likely related to anemia. Plan: * Nasal cannula oxygen supplementation as needed, wean to go O2 greater than 92% * Per EMR, patient might have COPD; will add Duonebs when necessary. CXR performed in ED was unremarkable (5) Leukocytosis Status: Chronic Plan: Patient noted to have a significant leukocytosis on admission. This is chronic, with WBC noted to be as high as 33K in late 2016. Patient was evaluated by medical oncology at that time and bone marrow biopsy was recommended which patient declined. There is no evidence of infection. Plan: * Monitor CBC * Peripheral smear as above * Hematology consult as above (6) Platelet disorder Status: Chronic Plan: Chronic thrombocytosis, work-up and management as above. (7) Alcoholism Status: Chronic Plan: Chronic alcoholism noted. He claims to drink a pint of rum daily and notes that he has never fully stopped alcohol. Denies history of seizure. Plan: * [facility] protocol * Folate, thiamine, multivitamin by mouth * Seizure precautions per [place] * Glucose monitoring per [facility] * Managed electrolytes as above * Case management (8) Tobacco abuse Status: Chronic Plan: Chronic. Almost 2 pack per day smoking history. Nicotine high-dose patch given. (9) Fluids/Electrolytes/Nutrition/Prophylaxis Status: Acute Plan: Fluids: tolerating PO/NS @ 100ml/hr Electrolytes: monitor and replete as needed Nutrition: Regular diet DVT Prophylaxis: Bilateral SCDs only give likely acute blood loss GI prophylaxis: Not indicated. can see what scope shows Physician Certification 2 Midnight Certification Type: Admission for Inpatient Services Order for Inpatient Services The services are ordered in accordance with Medicare regulations or non- Medicare payer requirements, as applicable. In the case of services not specified as inpatient-only, they are appropriately provided as inpatient services in accordance with the 2-midnight benchmark. Estimated LOS (days): 3 3 days is the estimated time the patient will need to remain in the hospital, assuming treatment plan goals are met and no additional complications. Post-Hospital Plan: Not yet determined Problem Qualifiers (1) Dyspnea: Qualified Code: R06.09 - Dyspnea on exertion (2) Leukocytosis: Qualified Code: D72.829 - Leukocytosis, unspecified type Poppy Vernon MD December 05, 2016 10:30
[2016-12-05] MEDS ORDERED: ACETAMINOPHEN 325 MG TAB PO PRN (11:00)
[2016-12-05] MEDS ORDERED: SODIUM CHLOR 0.9% 250 ML INJ 250 ML IV ONE (11:00)
[2016-12-05] MEDS ORDERED: diphenhydrAMINE HCL 25 MG CAP PO PRN (11:00)
[2016-12-05] MEDS ORDERED: PROPOFOL 200 MG/20 ML AMP IV ONE (12:17)
--- NOTE | 2016-12-05 12:36 | GIPROC ---
[facility] [address] [facility]. [facility], [address] COLONOSCOPY PROCEDURE REPORT EXAM DATE: 12/05/2016 PATIENT NAME: Pastor Uribe MR #: [id number] BIRTHDATE: 1950 ENDOSCOPIST: Patricia Jauregui MD ORDER #: [id number] OIL BURNER REPAIRER: Emmanuel Mireles and Katrina Bradshaw STATUS: inpatient INDICATIONS: The patient is a 66 yr old male here for a colonoscopy due to anemia PROCEDURE PERFORMED: Colonoscopy, diagnostic MEDICATIONS: None and Per Anesthesia. PREP QUALITY: suboptimal PREP TYPE:Magnesium Citrate ESTIMATED BLOOD LOSS: None CONSENT: The patient understands the risks and benefits of the procedure and understands that these risks include, but are not limited to: sedation, allergic reaction, infection, perforation and/or bleeding. Alternative means of evaluation and treatment include, among others: physical exam, x-rays, and/or surgical intervention. The patient elects to proceed with this endoscopic procedure. medical equipment was checked for proper function. Hand hygiene and appropriate measures for infection prevention was taken. After the risks, benefits and alternatives of the procedure were thoroughly explained, Informed consent was verified, confirmed and timeout was successfully executed by the treatment team. A digital exam revealed an enlarged prostate The Pentax EC-3490Li endoscope was introduced through the anus and advanced to the cecum, which was identified by both the appendix and ileocecal valve. The instrument was then slowly withdrawn as the colon was fully examined. COLON FINDINGS: Diverticulosis sigmoid,descending. Retroflexed views revealed internal hemorrhoids and Retroflexed views revealed small internal hemorrhoids The scope was then completely withdrawn from the patient and the procedure terminated. PROCEDURE WITHDRAWAL TIME:6minutes ADVERSE EVENTS: There were no complications. IMPRESSIONS: 1. Diverticulosis sigmoid,descending 2. Retroflexed views revealed internal hemorrhoids 3. Retroflexed views revealed small internal hemorrhoids 4. Revealed an enlarged prostate RECOMMENDATIONS: 1. Benefiber 2 tsp daily 2. High fiber diet 3. Probiotics from any [facility] or health food store 4. Yearly rectal exams RECALL: Return 1 year Colonoscopy Patricia Jauregui MD eSigned: Patricia Jauregui MD 12/05/2016 12:35 PM cc:
--- NOTE | 2016-12-05 12:38 | GIPROC ---
[facility] [address] [facility]. [facility], [id number] EGD PROCEDURE REPORT EXAM DATE: 12/05/2016 PATIENT NAME: Pastor Uribe MR #: [id number] BIRTHDATE: 1950 ATTENDING: Patricia Jauregui MD ORDER #: [id number] CLAY CARMAN: Emmanuel Mireles and Katrina Bradshaw STATUS: inpatient INDICATIONS: The patient is a 66 yr old male here for an EGD due to anemia PROCEDURE PERFORMED: EGD w/ biopsy MEDICATIONS: None and Per Anesthesia. TOPICAL ANESTHETIC: none CONSENT: The patient understands the risks and benefits of the procedure and understands that these risks include, but are not limited to: sedation, allergic reaction, infection, perforation and/or bleeding. Alternative means of evaluation and treatment include, among others: physical exam, x-rays, and/or surgical intervention. The patient elects to proceed with this endoscopic procedure. medical equipment was checked for proper function. Hand hygiene and appropriate measures for infection prevention was taken. After the risks, benefits and alternatives of the procedure were thoroughly explained, Informed consent was verified, confirmed and timeout was successfully executed by the treatment team. The patient was anesthetized with topical anesthesia and the EC-[id number] (Pedi C) endoscope was introduced through the mouth and advanced to the second portion of the duodenum. Retroflexed views revealed a hiatal hernia The gastroscope was then slowly withdrawn and removed. Esophagitis distal esophagus-biopsy gastritis antrum-biopsy duodenitis biopsy. ADVERSE EVENTS: There were no complications. IMPRESSIONS: 1. Esophagitis distal esophagus-biopsy gastritis antrum-biopsy duodenitis biopsy 2. Retroflexed views revealed a hiatal hernia RECOMMENDATIONS: 1. Await biopsy results. Biopsy results will not be ready for 7-10 days. If you don't hear from us in two weeks, call our office for biopsy results. 2. Anti-reflux regimen 3. Continue PPI 4. Avoid NSAIDS PATIENT CONDITION: stable DISPOSITION: Inpatient REPEAT EXAM: EGD pending biopsy results Patricia Jauregui MD eSigned: Patricia Jauregui MD 12/05/2016 12:38 PM cc: PATIENT NAME: Pastor Uribe MR#: [id number]
[2016-12-05] MEDS ORDERED: DIATRIZOATE MEGLUM/DIATRIZOATE SOD 9 ML CUP PO ONE (13:15)
[2016-12-05] MEDS ORDERED: SODIUM CHLOR 0.9% IV SCH (14:00)
[2016-12-05] MEDS ORDERED: POTASSIUM CHLORIDE IV SCH (14:00)
[2016-12-05] MEDS: FOLIC ACID 1 MG TAB PO SCH (14:39)
[2016-12-05] MEDS: MULTIVITAMINS/MINERALS THERAPEUTIC TAB PO SCH (14:40)
[2016-12-05] MEDS ORDERED: POTASSIUM CHLORIDE 10 MEQ CONTROLLED RELEASE TAB PO ONE (15:00)
--- NOTE | 2016-12-05 17:18 | EKG ---
Date Performed: 12/04/2016 Time Performed: 11:08:34 PTAGE: 66 years EKG: Sinus rhythm WITH SHORT NV INTERVAL NONSPECIFIC ST & T-WAVE ABNORMALITY BORDERLINE ECG Compared to PREVIOUS TRACING , there is now ST depression laterally, suggesting increasing ischemia, Clinical correlation is recommended. PREVIOUS TRACIN03/28/2016 16.00 DOCTOR: Agustin Noriega Interpretating Date/Time 12/05/2016 17:16:07
--- NOTE | 2016-12-05 23:59 | PD.ONC.PN ---
Subjective Subjective Remarks receiving blood transfusion today feels week. admits to drinking large amounts of alcohol on a daily basis. says he has cut back no obvious bleeding Objective Data Date Time Temp Pulse Resp B/P Pulse Ox O2 Delivery O2 Flow Rate FiO2 12/05/16 22:11 99.4 85 20 128/60 94 12/05/16 20:00 99.1 83 18 118/57 92 12/05/16 17:53 97.4 75 17 135/64 95 12/05/16 17:36 97.7 75 17 136/62 95 12/05/16 16:49 98.0 90 18 118/58 98 12/05/16 16:00 98.0 92 18 118/55 90 12/05/16 14:00 97.5 72 17 122/62 12/05/16 13:33 97.9 70 17 121/60 93 12/05/16 13:00 78 18 99/54 95 12/05/16 12:50 72 18 99/51 94 12/05/16 12:39 97.6 74 18 101/51 97 12/05/16 11:36 99.0 82 18 106/53 90 12/05/16 08:00 99.0 82 18 106/53 90 12/05/16 04:00 98.2 70 18 126/59 96 12/05/16 00:00 98.6 78 18 111/54 93 12/05/16 12/05/16 12/05/16 07:00 15:00 23:00 Intake Total 0 ml 1160 ml 120 ml Output Total 300 ml 300 ml Balance 0 ml 860 ml -180 ml Result Diagram: 12/05/16 0737 12/05/16 0737 Laboratory Results Laboratory Tests Test 12/05/16 12/05/16 07:37 10:56 White Blood Count 28.8 TH/MM3 Red Blood Count 2.38 MIL/MM3 Hemoglobin 6.9 GM/DL Hematocrit 20.7 % Mean Corpuscular Volume 87.0 FL Mean Corpuscular Hemoglobin 29.1 PG Mean Corpuscular Hemoglobin 33.5 % Concent Red Cell Distribution Width 19.9 % Platelet Count 828 TH/MM3 Mean Platelet Volume 9.2 FL Neutrophils (%) (Auto) % Lymphocytes (%) (Auto) % Monocytes (%) (Auto) % Eosinophils (%) (Auto) % Basophils (%) (Auto) % Neutrophils # (Auto) TH/MM3 Lymphocytes # (Auto) TH/MM3 Monocytes # (Auto) TH/MM3 Eosinophils # (Auto) TH/MM3 Basophils # (Auto) TH/MM3 CBC Comment AUTO DIFF Differential Total Cells 100 Counted Neutrophils % (Manual) 67 % Band Neutrophils % 8 % Lymphocytes % 6 % Monocytes % 7 % Eosinophils % 2 % Basophils % 2 % Neutrophils # (Manual) 23.9 TH/MM3 Metamyelocytes 1 % Myelocytes 7 % Differential Comment FINAL DIFF MANUAL Platelet Estimate HIGH Platelet Morphology Comment NORMAL Sodium Level 141 MEQ/L Potassium Level 2.8 MEQ/L Chloride Level 101 MEQ/L Carbon Dioxide Level 28.4 MEQ/L Anion Gap 12 MEQ/L Blood Urea Nitrogen 11 MG/DL Creatinine 0.61 MG/DL Estimat Glomerular Filtration 132 ML/MIN Rate Random Glucose 76 MG/DL Calcium Level 7.6 MG/DL Total Bilirubin 1.4 MG/DL Aspartate Amino Transf 67 U/L (AST/SGOT) Alanine Aminotransferase 26 U/L (ALT/SGPT) Alkaline Phosphatase 104 U/L Total Protein 5.1 GM/DL Albumin 2.1 GM/DL Blood Type O POSITIVE Crossmatch Leukocyte-Reduced Red Blood Cells Blood Bank Comment Administered Medications Medications (Trade) Dose Ordered Sig/Irma Route PRN Reason Start Time Stop Time Status Last Admin Dose Admin Sodium Chloride (NS Flush) 2 ml BID IV FLUSH 12/04/16 21:00 12/05/16 09:00 Folic Acid (Folate) 1 mg Q24H PO 12/04/16 14:00 12/09/16 13:59 12/05/16 14:39 Thiamine HCl (Vitamin B1) 100 mg DAILY PO 12/05/16 09:00 12/05/16 09:09 Multivitamins/ Minerals Therapeutic (Theragran M Tab) 1 tab Q24H PO 12/04/16 14:00 12/09/16 13:59 12/05/16 14:40 Nicotine (Habitrol 21 Mg Patch.24 Hr) 1 patch DAILY T-DERMAL 12/04/16 14:00 12/05/16 09:09 Miscellaneous Information 1 1 DAILY T-DERMAL 12/05/16 09:00 12/05/16 09:00 Potassium Chloride/Sodium Chloride 1,000 ml @ 100 mls/hr Q10H IV 12/04/16 15:15 12/05/16 09:10 Sodium Chloride (NS 250 ml Inj) 250 ml @ 15 mls/hr ONCE ONCE IV 12/05/16 11:00 12/06/16 03:39 12/05/16 11:00 Objective Remarks GENERAL: thin cachectic, ill apearing SKIN: Warm and dry.. NECK: Supple, trachea midline. No JVD or lymphadenopathy. LYMPHATIC: No adenopathy. CARDIOVASCULAR: Regular rate and rhythm without murmurs. RESPIRATORY: Breath sounds equal bilaterally. No accessory muscle use. GASTROINTESTINAL: Abdomen soft, non-tender, nondistended. EXTREMITIES: No cyanosis, or edema. Assessment/Plan Problem List: (1) Thrombocytosis Status: Acute (2) Alcoholism Status: Chronic (3) Leukocytosis Status: Chronic (4) Severe anemia Status: Acute (5) Tobacco abuse Status: Chronic Assessment 66 y/o with Leukocytosis, severe anemia and thrombocytosis. 1. Bone marrow bx with flow cytometry FISH and cytogenetics 2. R/O GI causes for anemia 3. Abdominal U/S to asses for hepato-splenomegaly /liver cirrhosis Problem Qualifiers (1) Leukocytosis: Qualified Code: D72.829 - Leukocytosis, unspecified type Howard Muhammad MD December 05, 2016 23:59
[2016-12-06] VITALS (12 sets, daily range): BP systolic 115–150; BP diastolic 57–87; PULSE 77–126; RESP 18–20; TEMP 97.8–99; O2SAT 90–99
[2016-12-06 02:30] LABS: HEMATOCRIT 31.3 % (39.0-51.0); MEAN CELL VOLUME 86.2 FL (80.0-100.0); MEAN CORPUSCULAR HEMOGLOBIN 28.2 PG (27.0-34.0); MEAN CORPUSCULAR HGB CONC 32.7 % (32.0-36.0); PLATELET COUNT 676 TH/MM3 (150-450); RED BLOOD COUNT 3.63 MIL/MM3 (4.50-5.90); RED CELL DISTRIBUTION WIDTH 17.6 % (11.6-17.2); WHITE BLOOD COUNT 35.3 TH/MM3 (4.0-11.0)
[2016-12-06 02:31] LABS: HEMO FLAGS AUTO DIFF
[2016-12-06 02:56] LABS: ALT (GPT) 34 U/L (12-78); ANION GAP 12 MEQ/L (5-15); AST (GOT) 111 U/L (15-37); BICARBONATE 27.5 MEQ/L (21.0-32.0); BLOOD UREA NITROGEN 10 MG/DL (7-18); CHLORIDE 103 MEQ/L (98-107); GLOMERULAR FILTRATION RATE 130 ML/MIN (>89); MAGNESIUM 1.2 MG/DL (1.5-2.5); POTASSIUM 3.3 MEQ/L (3.5-5.1); SODIUM (NA) 142 MEQ/L (136-145)
[2016-12-06 02:58] LABS: ALKALINE PHOSPHATASE 109 U/L (45-117); TOTAL BILIRUBIN ADULT 1.5 MG/DL (0.2-1.0)
[2016-12-06 03:45] LABS: BANDS 20 % (0-6); BASOPHILS 1 % (0-2); METAMYELOCYTES 1 % (0-1); MYELOCYTES 5 % (0-0); NEUTROPHIL # MANUAL DIFF 33.2 TH/MM3 (1.8-7.7); PLATELET ESTIMATE SMEAR HIGH (NORMAL); PLATELET MORPHOLOGY NORMAL (NORMAL); POLYS (SEG NEUTROPHILS) 66 % (16-70); PROMYELOCYTES 2 % (0-0); SCAN/DIFF FINAL DIFF MANUAL; WBC DIFF SAMPLE 100
[2016-12-06 03:47] LABS: TOXIC VACUOLATION PRESENT (NONE SEEN)
[2016-12-06] MEDS: SODIUM CHLORIDE 0.9% FLUSH 10 ML FLUSH IV FLUSH SCH ×2 (10:03→21:00)
--- NOTE | 2016-12-06 10:06 | HHI.GIFU ---
Subjective Remarks Resting in bed. No complaints. Getting abdominal US. Denies any obvious bleeding. No n/v. No abdominal pain. Did have a loose stool this am and is requesting imodium. Cdiff still pending. (Karen Eric) Objective Vitals I&O Vital Signs Date Time Temp Pulse Resp B/P Pulse Ox O2 Delivery O2 Flow Rate FiO2 12/06/16 08:00 98.0 80 20 125/66 96 12/06/16 04:00 98.7 82 18 115/58 93 12/06/16 00:00 99.0 77 18 123/59 94 12/05/16 22:11 99.4 85 20 128/60 94 12/05/16 20:00 99.1 83 18 118/57 92 12/05/16 20:00 78 12/05/16 17:53 97.4 75 17 135/64 95 12/05/16 17:36 97.7 75 17 136/62 95 12/05/16 16:49 98.0 90 18 118/58 98 12/05/16 16:00 98.0 92 18 118/55 90 12/05/16 14:00 97.5 72 17 122/62 12/05/16 13:33 97.9 70 17 121/60 93 12/05/16 13:00 78 18 99/54 95 12/05/16 12:50 72 18 99/51 94 12/05/16 12:39 97.6 74 18 101/51 97 12/05/16 11:36 99.0 82 18 106/53 90 I/O 12/05/16 12/05/16 12/05/16 12/06/16 12/06/16 12/06/16 07:00 15:00 23:00 07:00 15:00 23:00 Intake Total 0 ml 1160 ml 120 ml Output Total 300 ml 300 ml Balance 0 ml 860 ml -180 ml Intake Oral 0 ml 960 ml 120 ml Other 200 ml Output Urine Total 300 ml 300 ml # Voids 0 # Bowel Movements 2 1 5 Laboratory Laboratory Tests Test 12/05/16 12/06/16 10:56 02:11 Blood Type O POSITIVE Crossmatch Leukocyte-Reduced Red Blood Cells Blood Bank Comment White Blood Count 35.3 Red Blood Count 3.63 Hemoglobin 10.2 Hematocrit 31.3 Mean Corpuscular Volume 86.2 Mean Corpuscular Hemoglobin 28.2 Mean Corpuscular Hemoglobin 32.7 Concent Red Cell Distribution Width 17.6 Platelet Count 676 Mean Platelet Volume 9.2 Neutrophils (%) (Auto) Lymphocytes (%) (Auto) Monocytes (%) (Auto) Eosinophils (%) (Auto) Basophils (%) (Auto) Neutrophils # (Auto) Lymphocytes # (Auto) Monocytes # (Auto) Eosinophils # (Auto) Basophils # (Auto) CBC Comment AUTO DIFF Differential Total Cells 100 Counted Neutrophils % (Manual) 66 Band Neutrophils % 20 Lymphocytes % 4 Monocytes % 1 Basophils % 1 Neutrophils # (Manual) 33.2 Metamyelocytes 1 Myelocytes 5 Promyelocytes 2 Differential Comment FINAL DIFF MANUAL Toxic Vacuolation PRESENT Platelet Estimate HIGH Platelet Morphology Comment NORMAL Sodium Level 142 Potassium Level 3.3 Chloride Level 103 Carbon Dioxide Level 27.5 Anion Gap 12 Blood Urea Nitrogen 10 Creatinine 0.62 Estimat Glomerular Filtration 130 Rate Random Glucose 83 Calcium Level 7.5 Magnesium Level 1.2 Total Bilirubin 1.5 Aspartate Amino Transf 111 (AST/SGOT) Alanine Aminotransferase 34 (ALT/SGPT) Alkaline Phosphatase 109 Total Protein 5.1 Albumin 2.2 Date/Time Procedure Status Source Growth 12/06/16 06:25 Cyclospora Exam Received Stool Stool Pending 12/06/16 06:25 Cryptosporidium Exam Received Stool Stool Pending 12/06/16 06:25 Stool Pus (SAY) Received Stool Stool Pending 12/06/16 06:25 Giardia Antigen (SAY) Received Stool Stool Pending 12/06/16 06:25 Received Stool Stool Pending Imaging Last Impressions Head CT 12/04/16 1047 Signed Impressions: Service Date/Time: Sunday, December 04, 2016 11:18 - CONCLUSION: Negative for an acute process.. Phoenix Mcknight MD FACR Chest X-Ray 12/04/16 1047 Signed Impressions: Service Date/Time: Sunday, December 04, 2016 10:44 - CONCLUSION: COPD. No evidence of acute process. Harijnder Stubbs MD Physical Exam HEENT: Normocephalic; atraumatic; no jaundice. CHEST: CTA, diminished CARDIAC: RRR ABDOMEN: Soft, nondistended, nontender; no hepatosplenomegaly; bowel sounds are present in all four quadrants. EXTREMITIES: No clubbing, cyanosis, or edema. SKIN: Multiple abrasions, ecchymotic areas TURPENTINE FARMER: No focal deficits; alert and oriented times three. (EircKaren Delgado DISEASE INTERVENTION SPECIALIST) Assessment and Plan Plan ASSESSMENT: - Severe anemia. Pt has associated leukocytosis adn thrombocytosis, concerning for a myeloproliferative disorder. S/P EGD/Colonoscopy to R/O GI blood loss (12/05/16)----> 1. Esophagitis distal esophagus-biopsy, gastritis antrum-biopsy, duodenitis biopsy 2. Retroflexed views revealed a hiatal hernia, 1. Diverticulosis sigmoid,descending 2. Retroflexed views revealed internal hemorrhoids 3. Retroflexed views revealed small internal hemorrhoids 4. Revealed an enlarged prostate. Admission HH 5.5/16.7. Absolute Retic 16.7, LDH 255. Haptoglobin 240. B12 >2000, Folate > 20.0, S/P 4 units PRBC. 10.2/ 31.3. Hematology following, Bone Marrow biopsy ordered. - Iron saturation 99.0. This was prior to blood transfusions. Previous Hfe gene not detected in 2016. - Diarrhea. Diarrhea x 2 weeks with 3-4 BMs per day. No risk factors for infectious etiology. Stool studies pending. Pt requesting imodium, if Cdiff comes back negative, then we will consider this- explained to patient. - Elevated LFTs with T. Bili 1.5, AST 111, ALT 34, ALk Phosph 109. Drinks 1 pint per day. RUQ US pending. - Thrombocytosis. Plts 1037---> 676. These are chronically elevated. Previous JAK2 mutation was negative. Hematology following. - Chronic leukocytosis. WBC 35.3. Pt has had intermittent leukocytosis. Hematology following, bone marrow biopsy pending. Cdiff pending. - Severe electrolyte abnormalities. Per primary - ETOH abuse, drinks 1 pint per day. DT precautions per primary PLAN: - NPO for procedure - Bone Marrow biopsy today by IR - Await RUQ US - Await CT scan abdomen and pelvis - Cont. PPI - Monitor HH - Transfuse as necessary - Hematology following - Await stool studies- CDiff, O&P, C/S, WBC, Giardia, Cryptosporidia, Cyclosporia - If stool studies negative, consider imodium - Supportive care - Further recommendations to follow based on results of above - Pt seen and examined by Dr. Jauregui adn myself and [facility] (Karen Eric) Physician Comments seen, examined agree with above await ct abdomen/pelvis fu biopsy (Patricia Jauregui MD) Karen Eric December 06, 2016 10:06 Patricia Jauregui MD December 06, 2016 18:29
[2016-12-06] MEDS: THIAMINE HCL 100 MG TAB PO SCH (10:10)
[2016-12-06] MEDS: NICOTINE 21 MG/24 HR PATCH T-DERMAL SCH (10:11)
[2016-12-06] MEDS: REMOVE OLD PATCH T-DERMAL SCH (10:11)
[2016-12-06] MEDS: NS + KCL 40 MEQ INJ 1,000 ML IV SCH ×2 (10:11→18:35)
--- NOTE | 2016-12-06 10:23 | RADRPT ---
EXAM DATE/TIME: 12/06/2016 08:44 [facility] COMPARISON: No previous studies available for comparison. INDICATIONS : Anemia, alcoholism, thrombocytosis. MEDICAL HISTORY : ETOH. SURGICAL HISTORY : None. ENCOUNTER: Subsequent ACUITY: 1 day PAIN SCORE: 0/10 LOCATION: Bilateral upper quadrant MEASUREMENTS: LIVER: 17.6 cm length COMMON DUCT: 4 mm RIGHT KIDNEY: 9.0 x 5.3 x 4.7 cm LEFT KIDNEY: 9.6 x 4.1 x 4.7 cm SPLEEN: 6.3 cm length AORTA: 1.7cm maximal FINDINGS: LIVER: Enlarged echogenic liver without focal lesion or ductal dilatation. Small ascites. Hepatopedal flow. COMMON DUCT: No intraluminal mass or stone visualized. GALLBLADDER: Contains gallstones and sludge, demonstrates no wall thickening or pericholecystic fluid. PANCREAS: Poorly visualized due to overlying bowel gas. RIGHT KIDNEY: No hydronephrosis, stone or mass. LEFT KIDNEY: No hydronephrosis, stone or mass. SPLEEN: No focal lesion. AORTA: Non aneurysmal. IVC: Within normal limits. CONCLUSION: 1. Enlarged echogenic liver which can be seen with moderate hepatic steatosis versus status dysfuncti on 2. Small ascites. 3. Poorly visualized pancreas. 4. Cholelithiasis and gallbladder sludge. Juan Miguel Meeks MD on December 06, 2016 at 10:19 Board Certified Radiologist. This report was verified electronically.
--- NOTE | 2016-12-06 10:29 | HHI.FPPN ---
Subjective Remarks Seen and examined this morning. Afebrile vital signs stable. EGD/colonoscopy performed yesterday showed no active bleeding. Awaiting liver ultrasound today as well as bone marrow biopsy. Patient understands the plan of care is dependent upon the results of the bone marrow biopsy. He denies any pain at this time. Denies any blood in his stool. Reports that he has been getting up to use the bathroom. He wishes to have more physical therapy while he is here in the hospital. Endorses: None Denies: Fever, chills, nausea, vomiting, shortness of breath, chest pain, headache, abdominal pain, calf pain (Lit Gardiner MD R2) Objective Vitals Vital Signs Date Time Temp Pulse Resp B/P Pulse Ox O2 Delivery O2 Flow Rate FiO2 12/06/16 08:00 98.0 80 20 125/66 96 12/06/16 04:00 98.7 82 18 115/58 93 12/06/16 00:00 99.0 77 18 123/59 94 12/05/16 22:11 99.4 85 20 128/60 94 12/05/16 20:00 99.1 83 18 118/57 92 12/05/16 20:00 78 12/05/16 17:53 97.4 75 17 135/64 95 12/05/16 17:36 97.7 75 17 136/62 95 12/05/16 16:49 98.0 90 18 118/58 98 12/05/16 16:00 98.0 92 18 118/55 90 12/05/16 14:00 97.5 72 17 122/62 12/05/16 13:33 97.9 70 17 121/60 93 12/05/16 13:00 78 18 99/54 95 12/05/16 12:50 72 18 99/51 94 12/05/16 12:39 97.6 74 18 101/51 97 12/05/16 11:36 99.0 82 18 106/53 90 I/O 12/05/16 12/05/16 12/05/16 12/06/16 12/06/16 12/06/16 07:00 15:00 23:00 07:00 15:00 23:00 Intake Total 0 ml 1160 ml 120 ml Output Total 300 ml 300 ml Balance 0 ml 860 ml -180 ml Intake Oral 0 ml 960 ml 120 ml Other 200 ml Output Urine Total 300 ml 300 ml # Voids 0 # Bowel Movements 2 1 5 (Lit Gardiner MD R2) Result Diagram: 12/06/1621012/06/16210 Imaging Last Impressions Head CT 12/04/161046 Signed Impressions: Service Date/Time: Sunday, December 04, 2016 11:18 - CONCLUSION: Negative for an acute process.. Phoenix Mcknight MD FACR Chest X-Ray 12/04/161046 Signed Impressions: Service Date/Time: Sunday, December 04, 2016 10:44 - CONCLUSION: COPD. No evidence of acute process. Harjinder Stubbs MD Objective Remarks GENERAL: Well-nourished, well-developed patient. No acute distress. SKIN: Warm and dry. No rash. EYES: No scleral icterus. No injection or drainage. PERRLA. EOMI. HENT: Normocephalic. Atraumatic. MMM. NECK: No visible JVD or lymphadenopathy. CARDIOVASCULAR: Regular rate and rhythm RESPIRATORY: Clear to auscultation bilaterally GASTROINTESTINAL: Abdomen nondistended. Nontender to palpation MUSCULOSKELETAL: Strength grossly WNL. BACK: Without obvious deformity. NEURO/PSYCH: Afocal. Awake, alert, and oriented x3. Procedures EGD/colonoscopy performed on 12/05/16 Medications and IVs Current Medications Medications (Trade) Dose Ordered Sig/Irma Route Start Time Stop Time Status Last Admin (NS Flush) 2 ml UNSCH PRN IV FLUSH 12/04/16 13:30 (NS Flush) 2 ml BID IV FLUSH 12/04/16 21:00 12/05/16 09:00 (Zofran Inj) 4 mg Q6H PRN IVP 12/04/16 13:30 (Folate) 1 mg Q24H PO 12/04/16 14:00 12/09/16 13:59 12/05/16 14:39 (Vitamin B1) 100 mg DAILY PO 12/05/16 09:00 12/06/16 10:10 (Theragran M Tab) 1 tab Q24H PO 12/04/16 14:00 12/09/16 13:59 12/05/16 14:40 (Romazicon Inj) 0.2 mg Q1M PRN IV PUSH 12/04/16 13:30 (Ativan) 1 mg Q4H PRN PO 12/04/16 13:30 (Ativan Inj) 1 mg Q4H PRN IV PUSH 12/04/16 13:30 (Ativan) 2 mg Q2H PRN PO 12/04/16 13:30 (Ativan Inj) 2 mg Q2H PRN IV PUSH 12/04/16 13:30 (Ativan Inj) 2 mg Q1H PRN IV PUSH 12/04/16 13:30 (Ativan Inj) 2 mg Q15M PRN IV PUSH 12/04/16 13:30 (Habitrol 21 Mg Patch.24 Hr) 1 patch DAILY T-DERMAL 12/04/16 14:00 12/06/16 10:11 Miscellaneous Information 1 DAILY T-DERMAL 12/05/16 09:00 12/06/16 10:11 Haloperidol Lactate 2 mg 2 mg Q15M PRN IM 12/04/16 15:00 (NS + KCl 40 Meq Inj) 1,000 ml @ 100 mls/hr Q10H IV 12/04/16 15:15 12/06/16 10:11 (Motrin) 400 mg Q6H PRN PO 12/04/16 16:00 (Morphine Inj) 1 mg Q3H PRN IV 12/04/16 16:00 (Narcan Inj) 0.4 mg UNSCH PRN IV 12/04/16 16:00 (Lit Gardiner MD R2) A/P Assessment and Plan 66-year-old male with a history of alcoholism who presents with lower extremity weakness and symptomatic anemia without evidence of shock. Current admission is working up the anemia Discharge Planning Pending results of bone marrow biopsy and hematology recommendations (Lit Gardiner MD R2) Attending Attestation Patient seen and examined. Case reviewed and discussed with the resident team. Agree with plan of care as discussed with me and documented in the resident note. he is having problems with his diarrhea and requests Imodium but explained that if he has C diff Imodium can be counterproductive (Poppy Vernon MD) Problem List: (1) Severe anemia Status: Acute Plan: Anemia is improved at this time. Working up to cause of the anemia. Concern for possible leukemia versus other form of bone marrow etiology Plan: * Status post 2 units of blood transfused * Isotonic IVF at 100 mL per hour with 40 mEq potassium per liter, will need more K today * Will monitor fluid status closely, noted to have significant hypokalemia on admission * Gastroenterology consult to assess for possible GI acute versus chronic losses , panendoscopy performed with no active bleeding * Hematology consult to assess blood dyscrasia as patient also has significant leukocytosis and thrombocytosis. His reticulocyte count is low. This could possibly be related to intrinsic bone marrow disorder or malignancy; was recommended the patient get bone marrow biopsy in past evaluation but patient declined. he will have this done during this hospitalization * Peripheral blood smear ordered and pending (2) Weakness of both lower extremities Status: Acute Plan: Patient presents with two-week history of falls related to lower extremity weakness. This is likely related to alcoholism and symptomatic anemia. He also has metabolic disturbances, most notably hypokalemia and hypomagnesemia. Patient is neurologically normal and lower extremities have normal strength on exam. CT of the head was performed in ED and showed no evidence of acute bleed. Plan: * Correct anemia as above * Replete electrolytes and monitor levels * PT assessment * Monitor neuro exam (3) Hypokalemia Status: Acute Plan: Likely multifactorial. He reports poor nutrition and is a chronic alcoholic. EKG is unremarkable. Plan: * Status post 50 mEq potassium in ED by mouth * Monitor on telemetry * Potassium in IVF * Recheck BMP this evening and in the morning * Continue to replete by mouth and per IV as needed (4) Dyspnea Status: Acute Plan: Likely related to anemia. Plan: * Nasal cannula oxygen supplementation as needed, wean to go O2 greater than 92% * Per EMR, patient might have COPD; will add Duonebs when necessary. CXR performed in ED was unremarkable (5) Leukocytosis Status: Chronic Plan: Patient noted to have a significant leukocytosis on admission. This is chronic, with WBC noted to be as high as 33K in late 2016. Patient was evaluated by medical oncology at that time and bone marrow biopsy was recommended which patient declined. There is no evidence of infection. Plan: * Monitor CBC * Peripheral smear as above * Hematology consult as above (6) Platelet disorder Status: Chronic Plan: Chronic thrombocytosis, work-up and management as above. (7) Alcoholism Status: Chronic Plan: Chronic alcoholism noted. He claims to drink a pint of rum daily and notes that he has never fully stopped alcohol. Denies history of seizure. Plan: * [facility] protocol * Folate, thiamine, multivitamin by mouth * Seizure precautions per [facility] * Glucose monitoring per [facility] * Managed electrolytes as above * Case management (8) Tobacco abuse Status: Chronic Plan: Chronic. Almost 2 pack per day smoking history. Nicotine high-dose patch given. (9) Fluids/Electrolytes/Nutrition/Prophylaxis Status: Acute Plan: Fluids: tolerating PO/NS @ 100ml/hr Electrolytes: monitor and replete as needed Nutrition: Heart healthy DVT Prophylaxis: Bilateral SCDs only give likely acute blood loss GI prophylaxis: Protonix (Lit Gardiner MD R2) Problem Qualifiers (1) Dyspnea: Qualified Code: R06.09 - Dyspnea on exertion (2) Leukocytosis: Qualified Code: D72.829 - Leukocytosis, unspecified type Lit Gardiner MD R2 December 06, 2016 10:29 Poppy Vernon MD December 07, 2016 13:10
[2016-12-06 10:43] LABS: C. DIFF EPI 027 PRESUMPTIVE NEGATIVE (NEGATIVE)
[2016-12-06 11:14] LABS: C. DIFF TOXIN PCR POSITIVE (NEGATIVE)
--- NOTE | 2016-12-06 11:42 | PD.ONC.PN ---
Subjective Subjective Remarks Tmax 99.4 overnight. He states the diarrhea is slightly improved. He has no pain. His major complaint is fatigue. Per RN his Cdiff study has recently come back positive. He is going down today for BMB with IR. Objective Data Date Time Temp Pulse Resp B/P Pulse Ox O2 Delivery O2 Flow Rate FiO2 12/06/16 08:37 77 12/06/16 08:00 98.0 80 20 125/66 96 12/06/16 04:00 98.7 82 18 115/58 93 12/06/16 00:00 99.0 77 18 123/59 94 12/05/16 22:11 99.4 85 20 128/60 94 12/05/16 20:00 99.1 83 18 118/57 92 12/05/16 20:00 78 12/05/16 17:53 97.4 75 17 135/64 95 12/05/16 17:36 97.7 75 17 136/62 95 12/05/16 16:49 98.0 90 18 118/58 98 12/05/16 16:00 98.0 92 18 118/55 90 12/05/16 14:00 97.5 72 17 122/62 12/05/16 13:33 97.9 70 17 121/60 93 12/05/16 13:00 78 18 99/54 95 12/05/16 12:50 72 18 99/51 94 12/05/16 12:39 97.6 74 18 101/51 97 12/05/16 11:36 99.0 82 18 106/53 90 Result Diagram: 12/06/1621012/06/16210 Laboratory Results Laboratory Tests Test 12/06/16 12/06/16 02:11 06:25 White Blood Count 35.3 TH/MM3 Red Blood Count 3.63 MIL/MM3 Hemoglobin 10.2 GM/DL Hematocrit 31.3 % Mean Corpuscular Volume 86.2 FL Mean Corpuscular Hemoglobin 28.2 PG Mean Corpuscular Hemoglobin 32.7 % Concent Red Cell Distribution Width 17.6 % Platelet Count 676 TH/MM3 Mean Platelet Volume 9.2 FL Neutrophils (%) (Auto) % Lymphocytes (%) (Auto) % Monocytes (%) (Auto) % Eosinophils (%) (Auto) % Basophils (%) (Auto) % Neutrophils # (Auto) TH/MM3 Lymphocytes # (Auto) TH/MM3 Monocytes # (Auto) TH/MM3 Eosinophils # (Auto) TH/MM3 Basophils # (Auto) TH/MM3 CBC Comment AUTO DIFF Differential Total Cells 100 Counted Neutrophils % (Manual) 66 % Band Neutrophils % 20 % Lymphocytes % 4 % Monocytes % 1 % Basophils % 1 % Neutrophils # (Manual) 33.2 TH/MM3 Metamyelocytes 1 % Myelocytes 5 % Promyelocytes 2 % Differential Comment FINAL DIFF MANUAL Toxic Vacuolation PRESENT Platelet Estimate HIGH Platelet Morphology Comment NORMAL Sodium Level 142 MEQ/L Potassium Level 3.3 MEQ/L Chloride Level 103 MEQ/L Carbon Dioxide Level 27.5 MEQ/L Anion Gap 12 MEQ/L Blood Urea Nitrogen 10 MG/DL Creatinine 0.62 MG/DL Estimat Glomerular Filtration 130 ML/MIN Rate Random Glucose 83 MG/DL Calcium Level 7.5 MG/DL Magnesium Level 1.2 MG/DL Total Bilirubin 1.5 MG/DL Aspartate Amino Transf 111 U/L (AST/SGOT) Alanine Aminotransferase 34 U/L (ALT/SGPT) Alkaline Phosphatase 109 U/L Total Protein 5.1 GM/DL Albumin 2.2 GM/DL Stool C. difficile Toxin (PCR) POSITIVE Stl C. difficile Toxin PRESUMPTIVE Epiderm 027 NEGATIVE Culture Results Microbiology Date/Time Procedure Status Source Growth 12/06/16 06:25 Received Stool Stool Pending 12/06/16 06:25 Cyclospora Exam Received Stool Stool Pending 12/06/16 06:25 Cryptosporidium Exam Received Stool Stool Pending 12/06/16 06:25 Stool Pus (SAY) Received Stool Stool Pending 12/06/16 06:25 Giardia Antigen (SAY) Received Stool Stool Pending Imaging Studies Last 24 hours Impressions Abdomen Ultrasound 12/06/16 0000 Signed Impressions: Service Date/Time: Tuesday, December 06, 2016 08:44 - CONCLUSION: 1. Enlarged echogenic liver which can be seen with moderate hepatic steatosis versus status dysfunction 2. Small ascites. 3. Poorly visualized pancreas. 4. Cholelithiasis and gallbladder sludge. Juan Miguel Meeks MD Administered Medications Medications (Trade) Dose Ordered Sig/Irma Route PRN Reason Start Time Stop Time Status Last Admin Dose Admin Sodium Chloride (NS Flush) 2 ml BID IV FLUSH 12/04/16 21:00 12/05/16 09:00 Folic Acid (Folate) 1 mg Q24H PO 12/04/16 14:00 12/09/16 13:59 12/05/16 14:39 Thiamine HCl (Vitamin B1) 100 mg DAILY PO 12/05/16 09:00 12/06/16 10:10 Multivitamins/ Minerals Therapeutic (Theragran M Tab) 1 tab Q24H PO 12/04/16 14:00 12/09/16 13:59 12/05/16 14:40 Nicotine (Habitrol 21 Mg Patch.24 Hr) 1 patch DAILY T-DERMAL 12/04/16 14:00 12/06/16 10:11 Miscellaneous Information 1 1 DAILY T-DERMAL 12/05/16 09:00 12/06/16 10:11 Potassium Chloride/Sodium Chloride (NS + KCl 40 Meq Inj) 1,000 ml @ 100 mls/hr Q10H IV 12/04/16 15:15 12/06/16 10:11 Objective Remarks GENERAL: Older slender male, cachetic appearing. SKIN: Warm and dry. Bruising to bilateral upper arms. HEAD: Normocephalic. EYES: No injection or drainage. NECK: Supple, trachea midline. CARDIOVASCULAR: Regular rate and rhythm without murmurs. RESPIRATORY: Scattered rhonchi. GASTROINTESTINAL: Flat, non-distended. +BS. EXTREMITIES: No cyanosis, or edema. NEUROLOGICAL: No obvious focal deficit. Awake, alert, and oriented x3. Assessment/Plan Problem List: (1) Thrombocytosis Status: Acute Plan: -- BMB planned for today. (2) Leukocytosis Status: Chronic (3) Severe anemia Status: Acute Plan: -- GI following -- s/p Endoscopy that revealed esophagitis. Assessment 66 y/o with Leukocytosis, severe anemia and thrombocytosis. Plan 1. Abdominal US showed enlarged echogenic liver; No evidence of splenomegaly. 2. Rec'd 2 units PRBC's yesterday. Hgb OK today. Endoscopy showed esophagitis; biopsy results pending. 3. IR to do BMB today to assess for myeloproliferative disorder. 4. Monitor for bleeding, daily CBC. Attending Statement The exam, history, and the medical decision-making described in the above note were completed with the assistance of the mid-level provider. I reviewed and agree with the findings presented. I attest that I had a [id number] encounter with the patient on the same day, and personally performed and documented my assessment and findings in the medical record. Problem Qualifiers (1) Leukocytosis: Qualified Code: D72.829 - Leukocytosis, unspecified type Evelyn Goff December 06, 2016 11:42 Howard Muhammad MD December 07, 2016 00:12
[2016-12-06] MEDS: PANTOPRAZOLE SOD 20 MG DELAYED RELEASE TAB PO SCH (11:55)
[2016-12-06] MEDS: FOLIC ACID 1 MG TAB PO SCH (13:01)
[2016-12-06] MEDS: MULTIVITAMINS/MINERALS THERAPEUTIC TAB PO SCH (13:02)
[2016-12-06] MEDS ORDERED: fentaNYL CITRATE 250 MCG/5 ML AMP ONE (15:15)
[2016-12-06] MEDS ORDERED: MIDAZOLAM HCL 5 MG/5 ML VIAL ONE (15:15)
[2016-12-06] MEDS ORDERED: LIDOCAINE 1%/EPINEPHrine 1:100,000 SOLN 20 ML VIAL ONE (15:33)
[2016-12-06] MEDS ORDERED: DIATRIZOATE MEGLUM/DIATRIZOATE SOD 9 ML CUP PO ONE ×2 (16:40→21:30)
[2016-12-06] MEDS ORDERED: DIATRIZOATE MEGLUM/DIATRIZOATE SOD 9 ML CUP ONE (16:52)
[2016-12-06] MEDS ORDERED: IOHEXOL 350 MG/ML 10 ML VIAL (for RAD DIAG) IV ONE (18:14)
--- NOTE | 2016-12-06 18:33 | RADRPT ---
EXAM DATE/TIME: 12/06/2016 18:08 [facility] COMPARISON: No previous studies available for comparison. INDICATIONS : Anemia. IV CONTRAST: 72 cc Omnipaque 350 (iohexol) IV ORAL CONTRAST: Prescribed oral contrast ingested. RADIATION DOSE: 6.83 CTDIvol (mGy) MEDICAL HISTORY : None SURGICAL HISTORY : None. ENCOUNTER: Initial ACUITY: 1 day PAIN SCALE: 0/10 LOCATION: abdomen TECHNIQUE: Volumetric scanning of the abdomen and pelvis was performed. Using automated exposure control and ad justment of the mA and/or kV according to patient size, radiation dose was kept as low as reasonably achievable to obtain optimal diagnostic quality images. FINDINGS: LOWER LUNGS: Bilateral pleural effusions and bibasilar parenchymal atelectasis. LIVER: Severely diminished attenuation consistent with diffuse steatosis. No biliary ductal dilatation. No m ass. Tiny gallstone present. SPLEEN: Normal size without lesion. PANCREAS: Within normal limits. KIDNEYS: Cyst in the apex of the right kidney. No stone or hydronephrosis. ADRENAL GLANDS: Within normal limits. VASCULAR: There is no aortic aneurysm. BOWEL/MESENTERY: Distal colonic diverticula. No abnormal dilatation, wall thickening or focal inflammatory changes. Sm all volume of free pelvic fluid. ABDOMINAL WALL: Within normal limits. RETROPERITONEUM: There is no lymphadenopathy. BLADDER: No wall thickening or mass. REPRODUCTIVE: Within normal limits. INGUINAL: There is no lymphadenopathy or hernia. MUSCULOSKELETAL: Within normal limits for patient age. CONCLUSION: Pleural effusions and lung base atelectasis. Severe hepatic steatosis. Gallstone. Small minor free peritoneal fluid. Talat Irwin MD on December 06, 2016 at 18:28 Board Certified Radiologist. This report was verified electronically.
[2016-12-06 19:41] LABS: BONE MARROW PROCESSING COMPLETE; IRON STAIN DONE; JENNER GIEMSA STAIN DONE
[2016-12-07] MEDS: NS + KCL 40 MEQ INJ 1,000 ML IV SCH ×3 (03:15→20:52)
[2016-12-07 05:45] VITALS: BP 98/60; PULSE 102; RESP 18; TEMP 98; O2SAT 93
[2016-12-07 06:24] LABS: AUTOMATED NEUTROPHIL # 38.3 TH/MM3 (1.8-7.7); BASOPHIL # 0.4 TH/MM3 (0-0.2); HEMATOCRIT 32.8 % (39.0-51.0); LYMPH % 2.7 % (9.0-44.0); LYMPHOCYTE # 1.1 TH/MM3 (1.0-4.8); MEAN CELL VOLUME 87.4 FL (80.0-100.0); MEAN CORPUSCULAR HEMOGLOBIN 28.5 PG (27.0-34.0); MEAN CORPUSCULAR HGB CONC 32.6 % (32.0-36.0); MONO % 3.7 % (0.0-8.0); NEUT % 92.6 % (16.0-70.0); PLATELET COUNT 598 TH/MM3 (150-450); RED BLOOD COUNT 3.75 MIL/MM3 (4.50-5.90); RED CELL DISTRIBUTION WIDTH 18.3 % (11.6-17.2); WHITE BLOOD COUNT 41.4 TH/MM3 (4.0-11.0)
[2016-12-07 06:35] LABS: HEMO FLAGS AUTO DIFF
--- NOTE | 2016-12-07 07:42 | RADRPT ---
EXAM DATE/TIME: 12/06/2016 15:57 [facility] COMPARISON: No previous studies available for comparison. INDICATIONS : Anemia evaluate for leukemia. SEDATION TIME: 30 minutes BIOPSY SITE: Right [place] MEDICATION(S): 1.) 1.5 mg midazolam (Versed) IV 2.) 100 mcg fentanyl (Sublimaze) IV DEVICE(S): 1.) 11 gauge On-Control needle MEDICAL HISTORY : None. SURGICAL HISTORY : None. ENCOUNTER: Initial ACUITY: 1 day PAIN SCORE: 0/10 LOCATION: [place] A total of one core specimen(s) were obtained and sent to the laboratory for pathologic evaluation. PROCEDURE: 1. CT guided bone marrow biopsy. 2. Conscious sedation with continuous EKG and oximetry monitoring. Prior to the procedure informed consent was obtained. Any appropriate prior imaging studies were rev iewed. Using automated exposure control and adjustment of the mA and/or kV according to patient size , radiation dose was kept as low as reasonably achievable to obtain optimal diagnostic quality images . The site was prepped in a sterile fashion. Full sterile technique was used, including cap, mask, paco rile gloves and gown and a large sterile sheet. Hand hygiene and 2% chlorhexidine and/or betadine/al cohol prep was utilized per protocol for cutaneous antisepsis. The skin and subcutaneous tissues wer e infiltrated with local anesthetic solution. With CT guidance the previously identified target was localized. Biopsy was performed using the presc ribed needle as above. Following biopsy marrow aspiration was performed with repeat puncture. Adequa te hemostasis was obtained with compression at the puncture site. Follow-up CT scan reveals no hemorrhage. Conscious sedation was performed with the prescribed dosages and duration as above in the presence of an independent trained radiology nurse to assist in the monitoring of the patient. EKG and oximetry remained stable throughout the procedure. The patient tolerated the procedure well and there were no complications. The patient was sent to Radiology Outpatient Unit in stable condition. CONCLUSION: 1. Uncomplicated CT guided bone marrow aspirate. 2. Uncomplicated CT guided bone marrow biopsy. Juan Miguel Meeks MD on December 07, 2016 at 7:40 Board Certified Radiologist. This report was verified electronically.
[2016-12-07 07:55] VITALS: O2SAT 93
[2016-12-07 08:00] VITALS: BP 131/73; PULSE 106; RESP 20; TEMP 97.5; O2SAT 93
[2016-12-07] MEDS: SODIUM CHLORIDE 0.9% FLUSH 10 ML FLUSH IV FLUSH SCH ×2 (08:47→20:52)
[2016-12-07] MEDS: REMOVE OLD PATCH T-DERMAL SCH (08:53)
[2016-12-07] MEDS: NICOTINE 21 MG/24 HR PATCH T-DERMAL SCH (08:53)
[2016-12-07] MEDS: THIAMINE HCL 100 MG TAB PO SCH (08:53)
[2016-12-07] MEDS: PANTOPRAZOLE SOD 20 MG DELAYED RELEASE TAB PO SCH (08:53)
--- NOTE | 2016-12-07 09:24 | HHI.FPPN ---
Subjective Remarks Patient was seen and examined this morning. He denies fevers, chills, sob, chest pain, n/v. He has brown-yellow diarrhea since the colonoscopy, noted to have +C Diff (Maddy Prince MD R1) Objective Vitals Vital Signs Date Time Temp Pulse Resp B/P Pulse Ox O2 Delivery O2 Flow Rate FiO2 12/07/16 08:00 97.5 106 20 131/73 93 12/07/16 05:45 98.0 102 18 98/60 93 12/06/16 20:31 97.8 126 19 128/87 94 12/06/16 17:40 103 18 117/65 99 12/06/16 17:14 92 Nasal Cannula 3.00 12/06/16 17:10 110 18 133/57 99 12/06/16 16:55 98.9 107 18 117/59 93 12/06/16 16:00 98.6 88 20 150/83 90 12/06/16 12:00 98.2 87 20 129/69 91 12/06/16 10:13 92 Nasal Cannula 3.00 I/O 12/06/16 12/06/16 12/06/16 12/07/16 12/07/16 12/07/16 07:00 15:00 23:00 07:00 15:00 23:00 Intake Total 1439 ml 521 ml 783 ml Output Total 100 ml Balance 1439 ml 521 ml 683 ml Intake Oral 0 ml IV Total 1439 ml 521 ml 783 ml Output Urine Total 100 ml # Voids 4 1 # Bowel Movements 5 1 (Maddy Prince MD R1) Result Diagram: 12/07/16 0528 12/06/16 0211 Imaging Last Impressions Bone Biopsy CT 12/06/16 1507 Signed Impressions: Service Date/Time: Tuesday, December 06, 2016 15:57 - CONCLUSION: 1. Uncomplicated CT guided bone marrow aspirate. 2. Uncomplicated CT guided bone marrow biopsy. Juan Miguel Meeks MD Abdomen Ultrasound 12/06/16 0000 Signed Impressions: Service Date/Time: Tuesday, December 06, 2016 08:44 - CONCLUSION: 1. Enlarged echogenic liver which can be seen with moderate hepatic steatosis versus status dysfunction 2. Small ascites. 3. Poorly visualized pancreas. 4. Cholelithiasis and gallbladder sludge. Juan Miguel Meeks MD Abdomen/Pelvis CT 12/05/16 0000 Signed Impressions: Service Date/Time: Tuesday, December 06, 2016 18:08 - CONCLUSION: Pleural effusions and lung base atelectasis. Severe hepatic steatosis. Gallstone. Small minor free peritoneal fluid. Talat Irwin MD Head CT 12/04/16 1047 Signed Impressions: Service Date/Time: Sunday, December 04, 2016 11:18 - CONCLUSION: Negative for an acute process.. Phoenix Mcknight MD FACR Chest X-Ray 12/04/167 Signed Impressions: Service Date/Time: Sunday, December 04, 2016 10:44 - CONCLUSION: COPD. No evidence of acute process. Harjinder Stubbs MD Objective Remarks GENERAL: Elderly male lying in bed comfortably. SKIN: Warm and dry. Scattered ecchymoses HEAD: Atraumatic. Normocephalic. EYES: Pupils equal and round. No scleral icterus. No injection or drainage. ENT: No nasal bleeding or discharge. Mucous membranes pink and moist. NECK: Trachea midline. No JVD. CARDIOVASCULAR: Regular rate and rhythm. No murmurs RESPIRATORY: No accessory muscle use. Clear to auscultation. Breath sounds equal bilaterally. GASTROINTESTINAL: Abdomen soft, non-tender, nondistended. Hepatic and splenic margins not palpable. MUSCULOSKELETAL: Extremities without clubbing, cyanosis, or edema. No obvious deformities. NEUROLOGICAL: Awake and alert. No obvious cranial nerve deficits. Motor grossly within normal limits. Grossly normal strength. Normal speech. PSYCHIATRIC: Appropriate mood and affect; insight and judgment normal. Procedures EGD/colonoscopy performed on 12/05/16 Medications and IVs Inpatient Medications Acetaminophen (Tylenol) 650 mg Q4H PRN PO SEE LABEL COMMENTS; Start 12/05/16 at 11:00; Stop 12/05/16 at 15:01; Status DC Acetaminophen 650 mg 650 mg UNSCH X1 PRN PO FEVER; Start 12/04/16 at 12:30; Stop 12/07/16 at 12:29 Albuterol/ Ipratropium (Duoneb Neb) 1 ampule Q6HR WHILE AWAKE NEB PRN NEB SOB/ WHEEZING; Start 12/04/16 at 15:00 Diatrizoate Meglum/ Diatrizoate Sod ( Gastroview Liq) 18 ml ONCE ONCE PO ; Start 12/06/16 at 21:30; Stop 12/06/16 at 21:31; Status DC Diphenhydramine HCl (Benadryl Inj) 25 mg UNSCH X1 PRN IV ITCHING Last administered on 12/04/16 14:48; Start 12/04/16 at 12:30; Stop 12/07/16 at 12:29 Diphenhydramine HCl (Benadryl) 25 mg Q4H PRN PO SEE LABEL COMMENTS; Start at 11:00; Stop 12/05/16 at 15:01; Status DC Flumazenil (Romazicon Inj) 0.2 mg Q1M PRN IV PUSH SEE LABEL COMMENTS; Start 12/04/16 at 13:30 Folic Acid (Folate) 1 mg Q24H PO Last administered on 12/05/16 14:39; Start 12/04/16 at 14:00; Stop 12/09/16 at 13:59 Haloperidol Lactate 2 mg 2 mg Q15M PRN IM SEE LABEL COMMENTS; Start 12/04/16 at 15:00 Ibuprofen (Motrin) 400 mg Q6H PRN PO PAIN OR FEVER >101F; Start 12/04/16 at 16: 00 Lorazepam (Ativan Inj) 2 mg Q15M PRN IV PUSH CIWA > 20; Start 12/04/16 at 13:30 Lorazepam (Ativan) 2 mg Q2H PRN PO CIWA 11-14; Start 12/04/16 at 13:30 Magnesium Sulfate/ Dextrose (Magnesium Sulfate 1 Gm Premix) 100 ml @ 100 mls/ hr ONCE ONCE IV Last administered on 12/04/16 15:21; Start 12/04/16 at 14:45; Stop 12/04/16 at 15:44; Status DC Metronidazole (Flagyl) 500 mg TID PO ; Start 12/07/16 at 13:00; Stop 12/21/16 at 12:59 Miscellaneous Information 1 1 DAILY T-DERMAL Last administered on 12/07/16 08: 53; Start 12/05/16 at 09:00 Morphine Sulfate (Morphine Inj) 1 mg Q3H PRN IV BREAKTHROUGH PAIN; Start at 16:00 Multivitamins/ Minerals Therapeutic (Theragran M Tab) 1 tab Q24H PO Last administered on 12/05/16 14:40; Start 12/04/16 at 14:00; Stop 12/09/16 at 13:59 Naloxone HCl (Narcan Inj) 0.4 mg UNSCH PRN IV SEE LABEL COMMENTS; Start at 16:00 Nicotine (Habitrol 21 Mg Patch.24 Hr) 1 patch DAILY T-DERMAL Last administered on 12/07/16 08:53; Start 12/04/16 at 14:00 Ondansetron HCl (Zofran Inj) 4 mg Q6H PRN IVP NAUSEA OR VOMITING; Start at 13:30 Pantoprazole Sodium (Protonix) 20 mg DAILY PO Last administered on 12/07/16 08 :53; Start 12/06/16 at 10:30 Polyethylene Glycol/ Electrolytes 4000 ml 4,000 ml ONCE ONCE PO Last administered on 12/04/16 17:54; Start 12/04/16 at 17:00; Stop 12/04/16 at 17:01; Status DC Potassium Chloride/Sodium Chloride (NS + KCl 40 Meq Inj) 1,000 ml @ 100 mls/hr Q10H IV Last administered on 12/07/16 03:15; Start 12/04/16 at 15:15 Potassium Bicarb/ Potassium Chloride (K-Lyte Cl Eff) 50 meq ONCE ONCE PO Last administered on 12/04/16 12:47; Start 12/04/16 at 12:00; Stop 12/04/16 at 12: 01; Status DC Potassium Chloride (KCl) 50 meq ONCE ONCE PO Last administered on 12/05/16 14: 56; Start 12/05/16 at 15:00; Stop 12/05/16 at 15:01; Status DC Sodium Chloride (NS 1000 ml Inj) 1,000 ml @ 100 mls/hr Q10H IV Last administered on 12/04/16 14:02; Start 12/04/16 at 14:00; Stop 12/04/16 at 15:00; Status DC Sodium Chloride (NS 250 ml Inj) 250 ml @ 15 mls/hr ONCE ONCE IV Last administered on 12/05/16 11:00; Start 12/05/16 at 11:00; Stop 12/06/16 at 03:39; Status DC Sodium Chloride (NS Flush) 2 ml BID IV FLUSH Last administered on 12/05/16 09: 00; Start 12/04/16 at 21:00 Thiamine HCl (Vitamin B1) 100 mg DAILY PO Last administered on 12/07/16 08:53 ; Start 12/05/16 at 09:00 (Maddy Prince MD R1) Urinary Catheter: No (Maddy Prince MD R1) Vascular Central Line Catheter: No (Maddy Prince MD R1) A/P Assessment and Plan 66-year-old male with a history of alcoholism who presents with lower extremity weakness and symptomatic anemia without evidence of shock. He was admitted for management of weakness likely due to symptomatic anemia and found to have significant blood dyscrasias which warrants worked up Discharge Planning Pending results of bone marrow biopsy and hematology recommendations (Maddy Prince MD R1) Attending Attestation Patient seen and examined. Case reviewed and discussed with the resident team. Agree with plan of care as discussed with me and documented in the resident note. (Poppy Vernon MD) Problem List: (1) Severe anemia Status: Acute Plan: Anemia is improved at this time. Working up to cause of the anemia. Concern for possible leukemia versus other form of bone marrow etiology Plan: * Status post 2 units of blood transfused * Isotonic IVF at 100 mL per hour with 40 mEq potassium per liter, will need more K today * Will monitor fluid status closely, noted to have significant hypokalemia on admission * Gastroenterology consult to assess for possible GI acute versus chronic losses , panendoscopy performed with no active bleeding * Hematology consult to assess blood dyscrasia as patient also has significant leukocytosis and thrombocytosis. His reticulocyte count is low. This could possibly be related to intrinsic bone marrow disorder or malignancy; was recommended the patient get bone marrow biopsy in past evaluation but patient declined. he will have this done during this hospitalization * Peripheral blood smear ordered and pending * Bone marrow results pending (2) Clostridium difficile diarrhea Status: Acute Plan: Noted to have stool positive for C difficile on 12/06 specimen and diarrhea. This is after panendoscopy, which was not notable for colitis Plan: * Start PO Flagyl * Monitor VS, sx * Escalate to PO Vanc if indicated; it is notable that patient is possibly immunocompromised, pending results of BMB (3) Weakness of both lower extremities Status: Acute Plan: Plan: * Correct anemia as above * Replete electrolytes and monitor levels * PT assessment * Monitor neuro exam Hospital Course: Patient presented with two-week history of falls related to lower extremity weakness. This is likely related to alcoholism and symptomatic anemia. He also has metabolic disturbances, most notably hypokalemia and hypomagnesemia. Patient is neurologically normal and lower extremities have normal strength on exam. CT of the head was performed in ED and showed no evidence of acute bleed. (4) Hypokalemia Status: Acute Plan: Likely multifactorial. Improved with repletion. Will continue to monitor. He reports poor nutrition and is a chronic alcoholic. EKG is unremarkable. Plan: * Status post 50 mEq potassium in ED by mouth * Monitor on telemetry * Potassium in IVF * Trend BMP * Continue to replete by mouth and per IV as needed (5) Dyspnea Status: Acute Plan: Improved significantly. Etiology likely anemia. Plan: * Nasal cannula oxygen supplementation as needed, wean to go O2 greater than 92% * Per EMR, patient might have COPD; will add Duonebs when necessary. CXR performed in ED was unremarkable (6) Leukocytosis Status: Chronic Plan: Plan: * Treat C diff as this could be contributing * Monitor CBC, sx, vitals * Peripheral smear as above * Hematology consult as above Hospital Course: Patient noted to have a significant leukocytosis on admission. This is chronic, with WBC noted to be as high as 33K in late 2016. Patient was evaluated by medical oncology at that time and bone marrow biopsy was recommended which patient declined. There is no evidence of infection. (7) Platelet disorder Status: Chronic Plan: Chronic thrombocytosis, work-up and management as above. (8) Alcoholism Status: Chronic Plan: Chronic alcoholism noted. He claims to drink a pint of rum daily and notes that he has never fully stopped alcohol. Denies history of seizure. Plan: * CIWA protocol * Folate, thiamine, multivitamin by mouth * Seizure precautions per CIWA * Glucose monitoring per [place] * Managed electrolytes as above * Case management (9) Tobacco abuse Status: Chronic Plan: Chronic. Almost 2 pack per day smoking history. Nicotine high-dose patch given. (10) Fluids/Electrolytes/Nutrition/Prophylaxis Status: Acute Plan: Fluids: tolerating PO/NS @ 100ml/hr. May hep lock if needed Electrolytes: monitor and replete as needed Nutrition: Heart healthy DVT Prophylaxis: Bilateral SCDs only give likely acute blood loss GI prophylaxis: Protonix (Maddy Prince MD R1) Problem Qualifiers (1) Dyspnea: Qualified Code: R06.09 - Dyspnea on exertion (2) Leukocytosis: Qualified Code: D72.829 - Leukocytosis, unspecified type Maddy Prince MD R1 December 07, 2016 09:24 Poppy Vernon MD December 09, 2016 11:17
[2016-12-07 09:34] LABS: BANDS 20 % (0-6); BASOPHILS 1 % (0-2); MYELOCYTES 5 % (0-0); NEUTROPHIL # MANUAL DIFF 37.3 TH/MM3 (1.8-7.7); POLYS (SEG NEUTROPHILS) 65 % (16-70); WBC DIFF SAMPLE 100
[2016-12-07 09:35] LABS: BURR CELLS 1+ (NORMAL); OVALOCYTES 1+ (NORMAL); PLATELET ESTIMATE SMEAR HIGH (NORMAL); PLATELET MORPHOLOGY NORMAL (NORMAL); SCAN/DIFF FINAL DIFF MANUAL
--- NOTE | 2016-12-07 11:09 | PD.ONC.PN ---
Subjective Subjective Remarks Afebrile overnight. Pt resting in bed in no distress. He tells me he feels much better today. Denies acute complaints. Objective Data Date Time Temp Pulse Resp B/P Pulse Ox O2 Delivery O2 Flow Rate FiO2 12/07/16 08:00 97.5 106 20 131/73 93 12/07/16 07:55 93 Nasal Cannula 3.00 12/07/16 05:45 98.0 102 18 98/60 93 12/06/16 20:31 97.8 126 19 128/87 94 12/06/16 17:40 103 18 117/65 99 12/06/16 17:14 92 Nasal Cannula 3.00 12/06/16 17:10 110 18 133/57 99 12/06/16 16:55 98.9 107 18 117/59 93 12/06/16 16:00 98.6 88 20 150/83 90 12/06/16 12:00 98.2 87 20 129/69 91 12/07/16 12/07/16 12/07/16 07:00 15:00 23:00 Intake Total 783 ml Output Total 100 ml Balance 683 ml Result Diagram: 12/07/16 0528 12/06/16 0211 Laboratory Results Laboratory Tests Test 12/07/16 05:28 White Blood Count 41.4 TH/MM3 Red Blood Count 3.75 MIL/MM3 Hemoglobin 10.7 GM/DL Hematocrit 32.8 % Mean Corpuscular Volume 87.4 FL Mean Corpuscular Hemoglobin 28.5 PG Mean Corpuscular Hemoglobin 32.6 % Concent Red Cell Distribution Width 18.3 % Platelet Count 598 TH/MM3 Mean Platelet Volume 9.7 FL Neutrophils (%) (Auto) 92.6 % Lymphocytes (%) (Auto) 2.7 % Monocytes (%) (Auto) 3.7 % Eosinophils (%) (Auto) 0.0 % Basophils (%) (Auto) 1.0 % Neutrophils # (Auto) 38.3 TH/MM3 Lymphocytes # (Auto) 1.1 TH/MM3 Monocytes # (Auto) 1.5 TH/MM3 Eosinophils # (Auto) 0.0 TH/MM3 Basophils # (Auto) 0.4 TH/MM3 CBC Comment AUTO DIFF Differential Total Cells 100 Counted Neutrophils % (Manual) 65 % Band Neutrophils % 20 % Lymphocytes % 4 % Monocytes % 5 % Basophils % 1 % Neutrophils # (Manual) 37.3 TH/MM3 Myelocytes 5 % Differential Comment FINAL DIFF MANUAL Platelet Estimate HIGH Platelet Morphology Comment NORMAL Ovalocytes 1+ Ulysses Cells 1+ Culture Results Microbiology Date/Time Procedure Status Source Growth 12/06/16 06:25 - Final Complete Stool Stool Vibrio Group 12/06/16 06:25 Cyclospora Exam Resulted Stool Stool Pending 12/06/16 06:25 Cryptosporidium Exam Resulted Stool Stool Pending 12/06/16 06:25 Stool Pus (SAY) - Final Resulted Stool Stool NO WBC'S SEEN 12/06/16 06:25 Giardia Antigen (SAY) Resulted Stool Stool Pending Imaging Studies Last 24 hours Impressions Bone Biopsy CT 12/06/16 1507 Signed Impressions: Service Date/Time: Tuesday, December 06, 2016 15:57 - CONCLUSION: 1. Uncomplicated CT guided bone marrow aspirate. 2. Uncomplicated CT guided bone marrow biopsy. Juan Miguel Meeks MD Administered Medications Medications (Trade) Dose Ordered Sig/Irma Route PRN Reason Start Time Stop Time Status Last Admin Dose Admin Sodium Chloride (NS Flush) 2 ml BID IV FLUSH 12/04/16 21:00 12/05/16 09:00 Folic Acid (Folate) 1 mg Q24H PO 12/04/16 14:00 12/09/16 13:59 12/05/16 14:39 Thiamine HCl (Vitamin B1) 100 mg DAILY PO 12/05/16 09:00 12/07/16 08:53 Multivitamins/ Minerals Therapeutic (Theragran M Tab) 1 tab Q24H PO 12/04/16 14:00 12/09/16 13:59 12/05/16 14:40 Nicotine (Habitrol 21 Mg Patch.24 Hr) 1 patch DAILY T-DERMAL 12/04/16 14:00 12/07/16 08:53 Miscellaneous Information 1 1 DAILY T-DERMAL 12/05/16 09:00 12/07/16 08:53 Potassium Chloride/Sodium Chloride (NS + KCl 40 Meq Inj) 1,000 ml @ 100 mls/hr Q10H IV 12/04/16 15:15 12/07/16 03:15 Pantoprazole Sodium (Protonix) 20 mg DAILY PO 12/06/16 10:30 12/07/16 08:53 Objective Remarks GENERAL: Older slender male, cachetic appearing. SKIN: Warm and dry. Bruising to bilateral upper arms. HEAD: Normocephalic. EYES: No injection or drainage. NECK: Supple, trachea midline. CARDIOVASCULAR: Regular rate and rhythm without murmurs. RESPIRATORY: Scattered rhonchi. GASTROINTESTINAL: Flat, non-distended. +BS. EXTREMITIES: No cyanosis, or edema. NEUROLOGICAL: No obvious focal deficit. Awake, alert, and oriented x3. Assessment/Plan Problem List: (1) Thrombocytosis Status: Acute Plan: -- BMB done on 12/06. (2) Leukocytosis Status: Chronic Plan: -- BMB done on 12/06 (3) Severe anemia Status: Acute Plan: -- GI following -- s/p Endoscopy that revealed esophagitis. Assessment 66 y/o with Leukocytosis, severe anemia and thrombocytosis. Plan 1. Await BMB results. 2. Hgb stable. 3. Monitor CBC, supportive care. 4. Continue Abx for Cdiff. Attending Statement The exam, history, and the medical decision-making described in the above note were completed with the assistance of the mid-level provider. I reviewed and agree with the findings presented. I attest that I had a [id number] encounter with the patient on the same day, and personally performed and documented my assessment and findings in the medical record. Problem Qualifiers (1) Leukocytosis: Qualified Code: D72.829 - Leukocytosis, unspecified type Evelyn Goff December 07, 2016 11:09 Howard Muhammad MD December 07, 2016 22:53
[2016-12-07 12:00] VITALS: BP 135/60; PULSE 113; RESP 20; TEMP 97.7; O2SAT 95
[2016-12-07] MEDS: MULTIVITAMINS/MINERALS THERAPEUTIC TAB PO SCH (13:11)
[2016-12-07] MEDS: metroNIDAZOLE 500 MG TAB PO SCH ×2 (13:11→17:30)
[2016-12-07] MEDS: FOLIC ACID 1 MG TAB PO SCH (13:11)
[2016-12-07] MEDS ORDERED: AZITHROMYCIN 250 MG TAB PO ONE (14:30)
--- NOTE | 2016-12-07 14:41 | HHI.GIFU ---
Subjective Remarks This gentleman is resting in bed in no apparent distress, visiting with family. He has had one loose BM today, says his diarrhea is a little better. His BM today did have red blood in it, none prior. No abd pain, n/v, fever. (Cheyenne Luque) Objective Vitals I&O Vital Signs Date Time Temp Pulse Resp B/P Pulse Ox O2 Delivery O2 Flow Rate FiO2 12/07/16 08:00 97.5 106 20 131/73 93 12/07/16 07:55 93 Nasal Cannula 3.00 12/07/16 05:45 98.0 102 18 98/60 93 12/06/16 20:31 97.8 126 19 128/87 94 12/06/16 17:40 103 18 117/65 99 12/06/16 17:14 92 Nasal Cannula 3.00 12/06/16 17:10 110 18 133/57 99 12/06/16 16:55 98.9 107 18 117/59 93 12/06/16 16:00 98.6 88 20 150/83 90 I/O 12/06/16 12/06/16 12/06/16 12/07/16 12/07/16 12/07/16 07:00 15:00 23:00 07:00 15:00 23:00 Intake Total 1439 ml 521 ml 783 ml Output Total 100 ml Balance 1439 ml 521 ml 683 ml Intake Oral 0 ml IV Total 1439 ml 521 ml 783 ml Output Urine Total 100 ml # Voids 4 1 # Bowel Movements 5 1 Laboratory Laboratory Tests Test 12/07/16 05:28 White Blood Count 41.4 Red Blood Count 3.75 Hemoglobin 10.7 Hematocrit 32.8 Mean Corpuscular Volume 87.4 Mean Corpuscular Hemoglobin 28.5 Mean Corpuscular Hemoglobin 32.6 Concent Red Cell Distribution Width 18.3 Platelet Count 598 Mean Platelet Volume 9.7 Neutrophils (%) (Auto) 92.6 Lymphocytes (%) (Auto) 2.7 Monocytes (%) (Auto) 3.7 Eosinophils (%) (Auto) 0.0 Basophils (%) (Auto) 1.0 Neutrophils # (Auto) 38.3 Lymphocytes # (Auto) 1.1 Monocytes # (Auto) 1.5 Eosinophils # (Auto) 0.0 Basophils # (Auto) 0.4 CBC Comment AUTO DIFF Differential Total Cells 100 Counted Neutrophils % (Manual) 65 Band Neutrophils % 20 Lymphocytes % 4 Monocytes % 5 Basophils % 1 Neutrophils # (Manual) 37.3 Myelocytes 5 Differential Comment FINAL DIFF MANUAL Platelet Estimate HIGH Platelet Morphology Comment NORMAL Ovalocytes 1+ Ulysses Cells 1+ Date/Time Procedure Status Source Growth 12/06/16 06:25 Cyclospora Exam Resulted Stool Stool Pending 12/06/16 06:25 Cryptosporidium Exam - Final Resulted Stool Stool NEGATIVE - NO CRYPTOSPORIDIUM ANTIGEN... 12/06/16 06:25 Stool Pus (SAY) - Final Resulted Stool Stool NO WBC'S SEEN 12/06/16 06:25 Giardia Antigen (SAY) - Final Resulted Stool Stool NEGATIVE - NO GIARDIA ANTIGEN DETECTE... 12/06/16 06:25 - Final Complete Stool Stool Vibrio Group Imaging Last Impressions Bone Biopsy CT 12/06/16 1507 Signed Impressions: Service Date/Time: Tuesday, December 06, 2016 15:57 - CONCLUSION: 1. Uncomplicated CT guided bone marrow aspirate. 2. Uncomplicated CT guided bone marrow biopsy. Juan Miguel Meeks MD Abdomen Ultrasound 12/06/16 0000 Signed Impressions: Service Date/Time: Tuesday, December 06, 2016 08:44 - CONCLUSION: 1. Enlarged echogenic liver which can be seen with moderate hepatic steatosis versus status dysfunction 2. Small ascites. 3. Poorly visualized pancreas. 4. Cholelithiasis and gallbladder sludge. Juan Miguel Meeks MD Abdomen/Pelvis CT 12/05/16 0000 Signed Impressions: Service Date/Time: Tuesday, December 06, 2016 18:08 - CONCLUSION: Pleural effusions and lung base atelectasis. Severe hepatic steatosis. Gallstone. Small minor free peritoneal fluid. Talat Irwin MD Head CT 12/04/16 1047 Signed Impressions: Service Date/Time: Sunday, December 04, 2016 11:18 - CONCLUSION: Negative for an acute process.. Phoenix Mcknight MD FACR Chest X-Ray 12/04/16 1047 Signed Impressions: Service Date/Time: Sunday, December 04, 2016 10:44 - CONCLUSION: COPD. No evidence of acute process. Harjinder Stubbs MD Physical Exam HEENT: Normocephalic; atraumatic; no jaundice. CHEST: CTA, diminished CARDIAC: RRR ABDOMEN: Soft, nondistended, nontender; no hepatosplenomegaly; bowel sounds are present in all four quadrants. EXTREMITIES: No clubbing, cyanosis, or edema. SKIN: Multiple abrasions, ecchymotic areas STEAMBOAT PILOT: No focal deficits; alert and oriented times three. (Cheyenne Luque) Assessment and Plan Plan ASSESSMENT: - Severe anemia. today HH 10.7, 32.8 Pt has associated leukocytosis adn thrombocytosis, concerning for a myeloproliferative disorder. S/P EGD/ Colonoscopy to R/O GI blood loss (12/05/16)----> 1. Esophagitis distal esophagus-biopsy, gastritis antrum-biopsy, duodenitis biopsy 2. Retroflexed views revealed a hiatal hernia, 1. Diverticulosis sigmoid,descending 2. Retroflexed views revealed internal hemorrhoids 3. Retroflexed views revealed small internal hemorrhoids 4. Revealed an enlarged prostate. Admission HH 5.5/16.7. Absolute Retic 16.7, LDH 255. Haptoglobin 240. B12 >2000, Folate > 20.0, S/P 4 units PRBC. 10.2/ 31.3. Hematology following, Bone Marrow biopsy ordered. - Iron saturation 99.0. This was prior to blood transfusions. Previous Hfe gene not detected in 2016. - Diarrhea. Diarrhea x 2 weeks with 3-4 BMs per day. Today only 1BM containing bright red blood. No risk factors for infectious etiology. c diff toxin pos, vibrio pos. Flagyl, azithro, doxycycline. - Elevated LFTs with T. Bili 1.5, AST 111, ALT 34, ALk Phosph 109. Drinks 1 pint per day. US 12-06-16--> 1. Enlarged echogenic liver which can be seen with moderate hepatic steatosis versus status dysfunction 2. Small ascites. 3. Poorly visualized pancreas. 4. Cholelithiasis and gallbladder sludge. CT abd 12-05-16 ---> Pleural effusions and lung base atelectasis. Severe hepatic steatosis. Gallstone. Small minor free peritoneal fluid. - Thrombocytosis. Plts 1037---> 598. These are chronically elevated. Previous JAK2 mutation was negative. Hematology following. - Chronic leukocytosis. WBC 41.4. Pt has had intermittent leukocytosis. Hematology following, bone marrow biopsy pending. Cdiff pos, vibrio pos. - Severe electrolyte abnormalities. Per primary - ETOH abuse, drinks 1 pint per day. DT precautions per primary PLAN: - antibiotics - ID consult - Cont. PPI - Monitor HH - Transfuse as necessary - Hematology following - hydration - Supportive care - Further recommendations to follow based on results of above - Pt seen and examined by Dr. Shania vega myself and this note is written on her bhealf (Cheyenne Luque) Cheyenne Luque December 07, 2016 14:41 Patricia Jauregui MD December 07, 2016 19:00
[2016-12-07 16:00] VITALS: BP 117/68; PULSE 106; RESP 20; TEMP 97.6; O2SAT 96
[2016-12-07 20:00] VITALS: BP 101/55; PULSE 117; RESP 20; TEMP 97.6; O2SAT 94
[2016-12-07] MEDS: DOXYCYCLINE HYCLATE 100 MG CAP PO SCH (20:52)
[2016-12-08] VITALS (7 sets, daily range): BP systolic 100–121; BP diastolic 55–74; PULSE 100–126; RESP 20–22; TEMP 97.1–98.1; O2SAT 92–97
[2016-12-08] MEDS: NS + KCL 40 MEQ INJ 1,000 ML IV SCH (08:55)
[2016-12-08] MEDS: DOXYCYCLINE HYCLATE 100 MG CAP PO SCH ×2 (08:55→20:06)
[2016-12-08] MEDS: NICOTINE 21 MG/24 HR PATCH T-DERMAL SCH (08:55)
[2016-12-08] MEDS: THIAMINE HCL 100 MG TAB PO SCH (08:55)
[2016-12-08] MEDS: PANTOPRAZOLE SOD 20 MG DELAYED RELEASE TAB PO SCH (08:55)
[2016-12-08] MEDS: metroNIDAZOLE 500 MG TAB PO SCH ×3 (08:55→17:30)
[2016-12-08] MEDS: REMOVE OLD PATCH T-DERMAL SCH (08:58)
[2016-12-08] MEDS: SODIUM CHLORIDE 0.9% FLUSH 10 ML FLUSH IV FLUSH SCH ×2 (09:00→20:06)
--- NOTE | 2016-12-08 09:16 | HHI.FPPN ---
Subjective Remarks He was seen and examined this morning. He states that he walked around the room with physical therapy yesterday and got winded and feels short of breath with supplemental O2 via nasal cannula. He denies fevers, chills, , nausea, vomiting , shortness of breath, chest pain. He notes that the diarrhea has let up given he has been eating less, but he still had diarrhea overnight. He states that the 2 antibiotics pills he is getting the symptoms. (Maddy Prince MD R1) Objective Vitals Vital Signs Date Time Temp Pulse Resp B/P Pulse Ox O2 Delivery O2 Flow Rate FiO2 12/08/16 04:00 97.8 100 20 108/56 93 12/08/16 00:00 98.1 126 22 117/55 93 12/07/16 20:00 97.6 117 20 101/55 94 12/07/16 16:00 97.6 106 20 117/68 96 12/07/16 12:00 97.7 113 20 135/60 95 I/O 12/07/16 12/07/16 12/07/16 12/08/16 12/08/16 12/08/16 07:00 15:00 23:00 07:00 15:00 23:00 Intake Total 783 ml 1193 ml 529 ml 984 ml Output Total 100 ml Balance 683 ml 1193 ml 529 ml 984 ml Intake Oral 240 ml IV Total 783 ml 953 ml 529 ml 984 ml Output Urine Total 100 ml # Voids 1 1 # Bowel Movements 1 1 (Maddy Prince MD R1) Result Diagram: 12/07/16 0528 12/06/16 0211 Imaging Last Impressions Bone Biopsy CT 12/06/16 1507 Signed Impressions: Service Date/Time: Tuesday, December 06, 2016 15:57 - CONCLUSION: 1. Uncomplicated CT guided bone marrow aspirate. 2. Uncomplicated CT guided bone marrow biopsy. Juan Miguel Meeks MD Abdomen Ultrasound 12/06/16 0000 Signed Impressions: Service Date/Time: Tuesday, December 06, 2016 08:44 - CONCLUSION: 1. Enlarged echogenic liver which can be seen with moderate hepatic steatosis versus status dysfunction 2. Small ascites. 3. Poorly visualized pancreas. 4. Cholelithiasis and gallbladder sludge. Juan Miguel Meeks MD Abdomen/Pelvis CT 12/05/16 0000 Signed Impressions: Service Date/Time: Tuesday, December 06, 2016 18:08 - CONCLUSION: Pleural effusions and lung base atelectasis. Severe hepatic steatosis. Gallstone. Small minor free peritoneal fluid. Talat Irwin MD Head CT 12/04/16 1047 Signed Impressions: Service Date/Time: Sunday, December 04, 2016 11:18 - CONCLUSION: Negative for an acute process.. Phoenix Mcknight MD FACR Chest X-Ray 12/04/16 1047 Signed Impressions: Service Date/Time: Sunday, December 04, 2016 10:44 - CONCLUSION: COPD. No evidence of acute process. Harjinder Stubbs MD Objective Remarks GENERAL: Elderly male lying in bed in no apparent distress. He is alert. SKIN: Warm and dry. Scattered ecchymoses. HEAD: Atraumatic. Normocephalic. EYES: Pupils equal and round. No scleral icterus. No injection or drainage. ENT: No nasal bleeding or discharge. Mucous membranes pink and moist. NECK: Trachea midline. No JVD. CARDIOVASCULAR: Regular rate and rhythm. No murmurs RESPIRATORY: No accessory muscle use. Clear to auscultation. Breath sounds equal bilaterally. GASTROINTESTINAL: Abdomen soft, non-tender, nondistended. Hepatic and splenic margins not palpable. MUSCULOSKELETAL: Extremities without clubbing, cyanosis, or edema. No obvious deformities. NEUROLOGICAL: Awake and alert. No obvious cranial nerve deficits. Motor grossly within normal limits. Grossly normal strength. Normal speech. PSYCHIATRIC: Appropriate mood and affect; insight and judgment normal. Procedures EGD/colonoscopy performed on 12/05/16 Medications and IVs Last Impressions Bone Biopsy CT 12/06/16 1507 Signed Impressions: Service Date/Time: Tuesday, December 06, 2016 15:57 - CONCLUSION: 1. Uncomplicated CT guided bone marrow aspirate. 2. Uncomplicated CT guided bone marrow biopsy. Juan Miguel Meeks MD Abdomen Ultrasound 12/06/16 0000 Signed Impressions: Service Date/Time: Tuesday, December 06, 2016 08:44 - CONCLUSION: 1. Enlarged echogenic liver which can be seen with moderate hepatic steatosis versus status dysfunction 2. Small ascites. 3. Poorly visualized pancreas. 4. Cholelithiasis and gallbladder sludge. Juan Miguel Meeks MD Abdomen/Pelvis CT 12/05/16 0000 Signed Impressions: Service Date/Time: Tuesday, December 06, 2016 18:08 - CONCLUSION: Pleural effusions and lung base atelectasis. Severe hepatic steatosis. Gallstone. Small minor free peritoneal fluid. Talat Irwin MD Head CT 12/04/16 1047 Signed Impressions: Service Date/Time: Sunday, December 04, 2016 11:18 - CONCLUSION: Negative for an acute process.. Phoenix Mcknight MD FACR Chest X-Ray 12/04/16 1047 Signed Impressions: Service Date/Time: Sunday, December 04, 2016 10:44 - CONCLUSION: COPD. No evidence of acute process. Harjinder Stubbs MD (Maddy Prince MD R1) Urinary Catheter: No (Maddy Prince MD R1) Vascular Central Line Catheter: No (Maddy Prince MD R1) A/P Assessment and Plan 66-year-old male with a history of alcoholism who presents with lower extremity weakness and symptomatic anemia without evidence of shock. He was admitted for management of weakness likely due to symptomatic anemia and found to have significant blood dyscrasias which warrant work up Discharge Planning Pending results of bone marrow biopsy and hematology recommendations (Maddy Prince MD R1) Attending Attestation Patient seen and examined. Case reviewed and discussed with the resident team. Agree with plan of care as discussed with me and documented in the resident note. (Poppy Vernon MD) Problem List: (1) Severe anemia Status: Acute Plan: Anemia is improved at this time, H/H stable. Working up to cause of the anemia. Concern for possible leukemia versus other form of bone marrow etiology. Bone marrow results pending Plan: * Status post 2 units of blood transfused on 12/04, and 2 more units on 12/05, leukoreduced * Isotonic IVF at 100 mL per hour with 40 mEq potassium per liter, will need more K today * Will monitor fluid status closely, noted to have significant hypokalemia on admission * Gastroenterology consult to assess for possible GI acute versus chronic losses , panendoscopy performed with no active bleeding * Hematology consult to assess blood dyscrasia as patient also has significant leukocytosis and thrombocytosis. His reticulocyte count is low. This could possibly be related to intrinsic bone marrow disorder or malignancy; was recommended the patient get bone marrow biopsy in past evaluation but patient declined. he will have this done during this hospitalization * Peripheral blood smear ordered and pending * Bone marrow results pending (2) Vibrio cholera infection Status: Acute Plan: Patient is noted to have Vibrio of unknown species on stool study. This is possibly contributing to diarrhea. He was tried on doxycycline by mouth on . Infectious disease was consulted, will appreciate recs on further management. (3) Clostridium difficile diarrhea Status: Acute Plan: Noted to have stool positive for C difficile on 12/06 specimen and diarrhea. This is after panendoscopy, which was not notable for colitis. Diarrhea noted to be improved on 12/08 Plan: * Start PO Flagyl on 12/07 * Monitor VS, sx * Escalate to PO Vanc if indicated; it is notable that patient is possibly immunocompromised, pending results of BMB (4) Weakness of both lower extremities Status: Acute Plan: Plan: * Correct anemia as above * Replete electrolytes and monitor levels * PT assessment and continued evaluation, currently recommending rehabilitation with wheeled walker which was ordered * Monitor neuro exam Hospital Course: Patient presented with two-week history of falls related to lower extremity weakness. This is likely related to alcoholism and symptomatic anemia. He also has metabolic disturbances, most notably hypokalemia and hypomagnesemia. Patient is neurologically normal and lower extremities have normal strength on exam. CT of the head was performed in ED and showed no evidence of acute bleed. (5) Hypokalemia Status: Acute Plan: Improved. Likely multifactorial. Improved with repletion. Will continue to monitor. He reports poor nutrition and is a chronic alcoholic. EKG is unremarkable. Plan: * Status post 50 mEq potassium in ED by mouth * Monitor on telemetry * Potassium in IVF * Trend BMP, may start daily supplementation * Continue to replete by mouth and per IV as needed (6) Dyspnea Status: Acute Plan: Improved significantly. Etiology likely anemia. Plan: * Nasal cannula oxygen supplementation as needed, wean to go O2 greater than 92% * Per EMR, patient might have COPD; will add Duonebs when necessary. CXR performed in ED was unremarkable (7) Leukocytosis Status: Chronic Plan: Plan: * Treat C diff as this could be contributing * Monitor CBC, sx, vitals * Peripheral smear as above * Hematology consult as above Hospital Course: Patient noted to have a significant leukocytosis on admission. This is chronic, with WBC noted to be as high as 33K in late 2016. Patient was evaluated by medical oncology at that time and bone marrow biopsy was recommended which patient declined. There is no evidence of infection. (8) Platelet disorder Status: Chronic Plan: Chronic thrombocytosis, work-up and management as above. (9) Alcoholism Status: Chronic Plan: Chronic alcoholism noted. He claims to drink a pint of rum daily and notes that he has never fully stopped alcohol. Denies history of seizure. Plan: * [facility] protocol * Folate, thiamine, multivitamin by mouth * Seizure precautions per [facility] * Glucose monitoring per [facility] * Managed electrolytes as above * Case management (10) Tobacco abuse Status: Chronic Plan: Chronic. Almost 2 pack per day smoking history. Nicotine high-dose patch given. (11) Fluids/Electrolytes/Nutrition/Prophylaxis Status: Acute Plan: Fluids: tolerating PO/NS @ 100ml/hr. May hep lock if needed Electrolytes: monitor and replete as needed Nutrition: Heart healthy DVT Prophylaxis: Bilateral SCDs only give likely acute blood loss GI prophylaxis: Protonix (Maddy Prince MD R1) Problem Qualifiers (1) Dyspnea: Qualified Code: R06.09 - Dyspnea on exertion (2) Leukocytosis: Qualified Code: D72.829 - Leukocytosis, unspecified type Maddy Prince MD R1 December 08, 2016 09:16 Poppy Vernon MD December 09, 2016 11:17
[2016-12-08 10:36] LABS: AUTOMATED NEUTROPHIL # 35.7 TH/MM3 (1.8-7.7); BASOPHIL # 0.3 TH/MM3 (0-0.2); BASOPHIL % 0.7 % (0.0-2.0); HEMATOCRIT 34.1 % (39.0-51.0); LYMPH % 2.3 % (9.0-44.0); LYMPHOCYTE # 0.9 TH/MM3 (1.0-4.8); MEAN CELL VOLUME 91.4 FL (80.0-100.0); MEAN CORPUSCULAR HEMOGLOBIN 27.9 PG (27.0-34.0); MEAN CORPUSCULAR HGB CONC 30.6 % (32.0-36.0); MONO % 4.9 % (0.0-8.0); NEUT % 92.1 % (16.0-70.0); PLATELET COUNT 413 TH/MM3 (150-450); RED BLOOD COUNT 3.74 MIL/MM3 (4.50-5.90); RED CELL DISTRIBUTION WIDTH 18.5 % (11.6-17.2); WHITE BLOOD COUNT 38.8 TH/MM3 (4.0-11.0)
[2016-12-08 10:41] LABS: HEMO FLAGS AUTO DIFF
[2016-12-08 11:08] LABS: BICARBONATE 17.4 MEQ/L (21.0-32.0); POTASSIUM 5.4 MEQ/L (3.5-5.1)
--- NOTE | 2016-12-08 11:17 | PD.ONC.PN ---
Subjective Subjective Remarks Afebrile overnight. patient with only one episode of diarrhea overnight. When I walked into the room he was on the bedside commode trying to get back into bed. He was too weak to do so, so myself and the nurse helped him back to bed and advised him not to get out of bed without assistance. Objective Data Date Time Temp Pulse Resp B/P Pulse Ox O2 Delivery O2 Flow Rate FiO2 12/08/16 08:05 94 Nasal Cannula 3.00 12/08/16 08:00 97.8 125 20 121/62 92 12/08/16 04:00 97.8 100 20 108/56 93 12/08/16 00:00 98.1 126 22 117/55 93 12/07/16 20:00 97.6 117 20 101/55 94 12/07/16 16:00 97.6 106 20 117/68 96 12/07/16 12:00 97.7 113 20 135/60 95 12/08/16 12/08/16 12/08/16 07:00 15:00 23:00 Intake Total 984 ml Balance 984 ml Result Diagram: 12/08/16 0929 12/06/16 0211 Laboratory Results Laboratory Tests Test 12/08/16 09:29 White Blood Count 38.8 TH/MM3 Red Blood Count 3.74 MIL/MM3 Hemoglobin 10.4 GM/DL Hematocrit 34.1 % Mean Corpuscular Volume 91.4 FL Mean Corpuscular Hemoglobin 27.9 PG Mean Corpuscular Hemoglobin 30.6 % Concent Red Cell Distribution Width 18.5 % Platelet Count 413 TH/MM3 Mean Platelet Volume 11.3 FL Neutrophils (%) (Auto) 92.1 % Lymphocytes (%) (Auto) 2.3 % Monocytes (%) (Auto) 4.9 % Eosinophils (%) (Auto) 0.0 % Basophils (%) (Auto) 0.7 % Neutrophils # (Auto) 35.7 TH/MM3 Lymphocytes # (Auto) 0.9 TH/MM3 Monocytes # (Auto) 1.9 TH/MM3 Eosinophils # (Auto) 0.0 TH/MM3 Basophils # (Auto) 0.3 TH/MM3 CBC Comment AUTO DIFF Culture Results Microbiology Date/Time Procedure Status Source Growth 12/06/16 06:25 - Final Complete Stool Stool Vibrio Group 12/06/16 06:25 Cyclospora Exam - Final Complete Stool Stool NO CYCLOSPORA SEEN 12/06/16 06:25 Cryptosporidium Exam - Final Complete Stool Stool NEGATIVE - NO CRYPTOSPORIDIUM ANTIGEN... 12/06/16 06:25 Stool Pus (SAY) - Final Complete Stool Stool NO WBC'S SEEN 12/06/16 06:25 Giardia Antigen (SAY) - Final Complete Stool Stool NEGATIVE - NO GIARDIA ANTIGEN DETECTE... Administered Medications Medications (Trade) Dose Ordered Sig/Irma Route PRN Reason Start Time Stop Time Status Last Admin Dose Admin Sodium Chloride (NS Flush) 2 ml BID IV FLUSH 12/04/16 21:00 12/05/16 09:00 Folic Acid (Folate) 1 mg Q24H PO 12/04/16 14:00 12/09/16 13:59 12/07/16 13:11 Thiamine HCl (Vitamin B1) 100 mg DAILY PO 12/05/16 09:00 12/08/16 08:55 Multivitamins/ Minerals Therapeutic (Theragran M Tab) 1 tab Q24H PO 12/04/16 14:00 12/09/16 13:59 12/07/16 13:11 Nicotine (Habitrol 21 Mg Patch.24 Hr) 1 patch DAILY T-DERMAL 12/04/16 14:00 12/08/16 08:55 Miscellaneous Information 1 1 DAILY T-DERMAL 12/05/16 09:00 12/08/16 08:58 Potassium Chloride/Sodium Chloride (NS + KCl 40 Meq Inj) 1,000 ml @ 100 mls/hr Q10H IV 12/04/16 15:15 12/08/16 08:55 Pantoprazole Sodium (Protonix) 20 mg DAILY PO 12/06/16 10:30 12/08/16 08:55 Metronidazole (Flagyl) 500 mg TID PO 12/07/16 13:00 12/21/16 12:59 12/08/16 08:55 Doxycycline Hyclate (Vibramycin) 100 mg BID PO 12/07/16 21:00 12/10/16 20:59 12/08/16 08:55 Objective Remarks GENERAL: Pleasant but weak elderly male, lying supine in bed SKIN: Warm and dry. HEAD: Normocephalic. EYES: No injection or drainage. NECK: Supple, trachea midline. GASTROINTESTINAL: Abdomen soft, non-tender, nondistended. EXTREMITIES: No cyanosis; large bruise on right arm. NEUROLOGICAL: awake and alert, normal speech Assessment/Plan Problem List: (1) Thrombocytosis Status: Acute Plan: --BMB done on 12/06 and pathology is pending --likely d/t myeloproliferative disorder (2) Leukocytosis Status: Chronic Plan: -- BMB done on 12/06, pathology pending --likely due to MPD (3) Severe anemia Status: Acute Plan: -- GI following -- s/p Endoscopy that revealed esophagitis. Assessment 66 y/o with Leukocytosis, severe anemia and thrombocytosis. Plan 1. monitor CBC 2. await pathology from bone marrow biopsy Attending Statement The exam, history, and the medical decision-making described in the above note were completed with the assistance of the mid-level provider. I reviewed and agree with the findings presented. I attest that I had a [id number] encounter with the patient on the same day, and personally performed and documented my assessment and findings in the medical record. Problem Qualifiers (1) Leukocytosis: Qualified Code: D72.829 - Leukocytosis, unspecified type Carleen Henderson December 08, 2016 11:17 Howard Muhammad MD December 08, 2016 23:08
[2016-12-08 12:32] LABS: BANDS 23 % (0-6); BASOPHILS 2 % (0-2); METAMYELOCYTES 2 % (0-1); NEUTROPHIL # MANUAL DIFF 37.6 TH/MM3 (1.8-7.7); POLYS (SEG NEUTROPHILS) 72 % (16-70); WBC DIFF SAMPLE 100
[2016-12-08 12:33] LABS: PLATELET ESTIMATE SMEAR NORMAL (NORMAL); PLATELET MORPHOLOGY ENLARGED (NORMAL); SCAN/DIFF FINAL DIFF MANUAL
[2016-12-08] MEDS: FOLIC ACID 1 MG TAB PO SCH (13:30)
[2016-12-08] MEDS: MULTIVITAMINS/MINERALS THERAPEUTIC TAB PO SCH (13:30)
--- NOTE | 2016-12-08 15:06 | PD.ID.CON ---
History of Present Illness Service ID Consult Requested By Reason for Consult Evaluation and Mment of Vibrio diarrhea and Cdiff positive diarrhea. Primary Care Physician No Primary Care Physician Diagnoses: History of Present Illness is a 55 y/o CM with PMHx of alcoholism, severe anemia and thrombocytosis who presented to the ED with severe generalized weakness and h/o falls. He was found to have severe anemia with thrombocytosis- HH was 5.5/16.7, Platelets 1037. He reports that he has a long history of anemia. He was evaluated by Dr. Muhammad in February of 2016 for severe anemia with thrombocytosis. He had the workup for hemolysis with haptoglobin 180, LDH 281. He also had a peripheral smear which revealed marked leukocytosis and thrombocytosis, severe normochromic normocytic anemia. He was also noted to have an elevated ferritin at that time and underwent workup for hemochromatosis with Hfe gene- not detected. JAK2 mutation was not detected. He reports that he did not follow up with hematology for any further testing after discharge. 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 He also reports that he has been having shortness of breath on exertion x 2 weeks. He states that he has been having 3-4 liquid stools per day and just recently started taking imodium for this. He has had this in the past and states that it resolved with imodium. He cannot say how long ago he had this, but states this episode started 3 weeks ago. He denies any suspicious food, sick contacts, travel, or recent antibiotic use. He does consume lot of seafood but cooks it well. He denies any decreased appetite, nausea, vomiting, abdominal pain, heartburn, reflux, melena, hematochezia. He denies any family hx of cancer. He does drink 1 pint of liquor per day. ID consulted for evaluation and Mment of Vibrio Diarrhea and Cdiff positive diarrhea. Review of Systems ROS Limitations: Poor Historian Past Family Social History Allergies: Coded Allergies: No Known Allergies (Unverified , 12/04/16) Past Medical History Normocytic anemia Thrombocytosis Hx elevated ferritin level Chronic leukocytosis ETOH abuse Past Surgical History Colonoscopy Bone marrow biopsy Reported Medications Reported Meds & Active Scripts Active Active Ordered Medications Current Medications Medications (Trade) Dose Ordered Sig/Irma Route Start Time Stop Time Status Last Admin (NS Flush) 2 ml UNSCH PRN IV FLUSH 5/8/17 13:30 (NS Flush) 2 ml BID IV FLUSH 12/04/16 21:00 12/05/16 09:00 (Zofran Inj) 4 mg Q6H PRN IVP 12/04/16 13:30 (Folate) 1 mg Q24H PO 12/04/16 14:00 12/09/16 13:59 12/08/16 13:30 (Vitamin B1) 100 mg DAILY PO 12/05/16 09:00 12/08/16 08:55 (Theragran M Tab) 1 tab Q24H PO 12/04/16 14:00 12/09/16 13:59 12/08/16 13:30 (Romazicon Inj) 0.2 mg Q1M PRN IV PUSH 12/04/16 13:30 (Ativan) 1 mg Q4H PRN PO 12/04/16 13:30 (Ativan Inj) 1 mg Q4H PRN IV PUSH 12/04/16 13:30 (Ativan) 2 mg Q2H PRN PO 12/04/16 13:30 (Ativan Inj) 2 mg Q2H PRN IV PUSH 12/04/16 13:30 (Ativan Inj) 2 mg Q1H PRN IV PUSH 12/04/16 13:30 (Ativan Inj) 2 mg Q15M PRN IV PUSH 12/04/16 13:30 (Habitrol 21 Mg Patch.24 Hr) 1 patch DAILY T-DERMAL 12/04/16 14:00 12/08/16 08:55 Miscellaneous Information 1 DAILY T-DERMAL 12/05/16 09:00 12/08/16 08:58 (Haldol Inj) 2 mg Q15M PRN IM 12/04/16 15:00 (Motrin) 400 mg Q6H PRN PO 12/04/16 16:00 (Morphine Inj) 1 mg Q3H PRN IV 12/04/16 16:00 (Narcan Inj) 0.4 mg UNSCH PRN IV 12/04/16 16:00 (Protonix) 20 mg DAILY PO 12/06/16 10:30 12/08/16 08:55 (Flagyl) 500 mg TID PO 12/07/16 13:00 12/21/16 12:59 12/08/16 17:30 (Vibramycin) 100 mg BID PO 12/07/16 21:00 12/10/16 20:59 12/08/16 08:55 Family History Denies any known family hx of cancer. Mother from old age Father from [place] Social History Smokes a little less than 2 packs per day x 20 years. Drinks 1 pint liqour per day Physical Exam Vital Signs Vital Signs Date Time Temp Pulse Resp B/P Pulse Ox O2 Delivery O2 Flow Rate FiO2 12/08/16 12:00 97.6 110 20 120/74 96 12/08/16 08:05 94 Nasal Cannula 3.00 12/08/16 08:00 97.8 125 20 121/62 92 12/08/16 04:00 97.8 100 20 108/56 93 12/08/16 00:00 98.1 126 22 117/55 93 12/07/16 20:00 97.6 117 20 101/55 94 12/07/16 16:00 97.6 106 20 117/68 96 Physical Exam GENERAL: This is a well-nourished, well-developed patient, in no apparent distress. SKIN: No rashes, ecchymoses or lesions. Cool and dry. HEAD: Atraumatic. Normocephalic. No temporal or scalp tenderness. EYES: Pupils equal round and reactive. Extraocular motions intact. No scleral icterus. No injection or drainage. ENT: Nose without bleeding, purulent drainage or septal hematoma. Throat without erythema, tonsillar hypertrophy or exudate. Uvula midline. Airway patent. NECK: Trachea midline. No JVD or lymphadenopathy. Supple, nontender, no meningeal signs. CARDIOVASCULAR: Regular rate and rhythm without murmurs, gallops, or rubs. RESPIRATORY: Clear to auscultation. Breath sounds equal bilaterally. No wheezes , rales, or rhonchi. GASTROINTESTINAL: Abdomen soft, non-tender, nondistended. No hepato-splenomegaly , or palpable masses. No guarding. MUSCULOSKELETAL: Extremities without clubbing, cyanosis, or edema. No joint tenderness, effusion, or edema noted. No calf tenderness. Negative Homans sign bilaterally. NEUROLOGICAL: Awake and alert. Cranial nerves II through XII intact. Motor and sensory grossly within normal limits. Five out of 5 muscle strength in all muscle groups. Normal speech. Laboratory Laboratory Tests Test 12/08/16 09:29 White Blood Count 38.8 Red Blood Count 3.74 Hemoglobin 10.4 Hematocrit 34.1 Mean Corpuscular Volume 91.4 Mean Corpuscular Hemoglobin 27.9 Mean Corpuscular Hemoglobin 30.6 Concent Red Cell Distribution Width 18.5 Platelet Count 413 Mean Platelet Volume 11.3 Neutrophils (%) (Auto) 92.1 Lymphocytes (%) (Auto) 2.3 Monocytes (%) (Auto) 4.9 Eosinophils (%) (Auto) 0.0 Basophils (%) (Auto) 0.7 Neutrophils # (Auto) 35.7 Lymphocytes # (Auto) 0.9 Monocytes # (Auto) 1.9 Eosinophils # (Auto) 0.0 Basophils # (Auto) 0.3 CBC Comment AUTO DIFF Differential Total Cells 100 Counted Neutrophils % (Manual) 72 Band Neutrophils % 23 Monocytes % 1 Basophils % 2 Neutrophils # (Manual) 37.6 Metamyelocytes 2 Differential Comment FINAL DIFF MANUAL Platelet Estimate NORMAL Platelet Morphology Comment ENLARGED Sodium Level 143 Potassium Level 5.4 Chloride Level 111 Carbon Dioxide Level 17.4 Anion Gap 15 Blood Urea Nitrogen 17 Creatinine 1.11 Estimat Glomerular Filtration 66 Rate Random Glucose 114 Calcium Level 8.0 Date/Time Procedure Status Source Growth 12/06/16 06:25 Cyclospora Exam - Final Complete Stool Stool NO CYCLOSPORA SEEN 12/06/16 06:25 Cryptosporidium Exam - Final Complete Stool Stool NEGATIVE - NO CRYPTOSPORIDIUM ANTIGEN... 12/06/16 06:25 Stool Pus (SAY) - Final Complete Stool Stool NO WBC'S SEEN 12/06/16 06:25 Giardia Antigen (SAY) - Final Complete Stool Stool NEGATIVE - NO GIARDIA ANTIGEN DETECTE... 12/06/16 06:25 - Final Complete Stool Stool Vibrio Group Result Diagram: 12/08/1629 12/08/1629 Imaging Last Impressions Bone Biopsy CT 12/06/16 1507 Signed Impressions: Service Date/Time: Tuesday, December 06, 2016 15:57 - CONCLUSION: 1. Uncomplicated CT guided bone marrow aspirate. 2. Uncomplicated CT guided bone marrow biopsy. Juan Miguel Meeks MD Abdomen Ultrasound 12/06/16 0000 Signed Impressions: Service Date/Time: Tuesday, December 06, 2016 08:44 - CONCLUSION: 1. Enlarged echogenic liver which can be seen with moderate hepatic steatosis versus status dysfunction 2. Small ascites. 3. Poorly visualized pancreas. 4. Cholelithiasis and gallbladder sludge. Juan Miguel Meeks MD Abdomen/Pelvis CT 12/05/16 0000 Signed Impressions: Service Date/Time: Tuesday, December 06, 2016 18:08 - CONCLUSION: Pleural effusions and lung base atelectasis. Severe hepatic steatosis. Gallstone. Small minor free peritoneal fluid. Talat Irwin MD Head CT 12/04/16 1047 Signed Impressions: Service Date/Time: Sunday, December 04, 2016 11:18 - CONCLUSION: Negative for an acute process.. Phoenix Mcknight MD FACR Chest X-Ray 12/04/16 1047 Signed Impressions: Service Date/Time: Sunday, December 04, 2016 10:44 - CONCLUSION: COPD. No evidence of acute process. Harjinder Stubbs MD Assessment and Plan Assessment and Plan Vibrio species diarrhea in an alcoholic and Immune compromised pt. Cdiff positive diarrhea Leukemoid reaction with thrombocytosis: ? hematological malignancy s/p BM biopsy. Recs: DC Flagyl (pt reports decreased appetite) Continue Oral Doxy would recommend a 2 week course as pt is alcoholic and likely Immune compromised. Start oral Vanco recommend a 2 week course after Doxy course completed. Will follow next on Sunday. If any change in clinical condition in the interim please call who is covering for me. Cheryl Reddy MD December 08, 2016 15:06
--- NOTE | 2016-12-08 16:19 | HHI.GIFU ---
Subjective Remarks Pt resting comfortably in bed watchign TV. Still has some diarrhea, 2 x BM this morning but not blood today. No n/v, abd pain. (Cheyenne Luque) Objective Vitals I&O Vital Signs Date Time Temp Pulse Resp B/P Pulse Ox O2 Delivery O2 Flow Rate FiO2 12/08/16 12:00 97.6 110 20 120/74 96 12/08/16 08:05 94 Nasal Cannula 3.00 12/08/16 08:00 97.8 125 20 121/62 92 12/08/16 04:00 97.8 100 20 108/56 93 12/08/16 00:00 98.1 126 22 117/55 93 12/07/16 20:00 97.6 117 20 101/55 94 I/O 12/07/16 12/07/16 12/07/16 12/08/16 12/08/16 12/08/16 07:00 15:00 23:00 07:00 15:00 23:00 Intake Total 783 ml 1193 ml 529 ml 984 ml 698 ml Output Total 100 ml Balance 683 ml 1193 ml 529 ml 984 ml 698 ml Intake Oral 240 ml IV Total 783 ml 953 ml 529 ml 984 ml 698 ml Output Urine Total 100 ml # Voids 1 1 # Bowel Movements 1 1 Laboratory Laboratory Tests Test 12/08/16 09:29 White Blood Count 38.8 Red Blood Count 3.74 Hemoglobin 10.4 Hematocrit 34.1 Mean Corpuscular Volume 91.4 Mean Corpuscular Hemoglobin 27.9 Mean Corpuscular Hemoglobin 30.6 Concent Red Cell Distribution Width 18.5 Platelet Count 413 Mean Platelet Volume 11.3 Neutrophils (%) (Auto) 92.1 Lymphocytes (%) (Auto) 2.3 Monocytes (%) (Auto) 4.9 Eosinophils (%) (Auto) 0.0 Basophils (%) (Auto) 0.7 Neutrophils # (Auto) 35.7 Lymphocytes # (Auto) 0.9 Monocytes # (Auto) 1.9 Eosinophils # (Auto) 0.0 Basophils # (Auto) 0.3 CBC Comment AUTO DIFF Differential Total Cells 100 Counted Neutrophils % (Manual) 72 Band Neutrophils % 23 Monocytes % 1 Basophils % 2 Neutrophils # (Manual) 37.6 Metamyelocytes 2 Differential Comment FINAL DIFF MANUAL Platelet Estimate NORMAL Platelet Morphology Comment ENLARGED Sodium Level 143 Potassium Level 5.4 Chloride Level 111 Carbon Dioxide Level 17.4 Anion Gap 15 Blood Urea Nitrogen 17 Creatinine 1.11 Estimat Glomerular Filtration 66 Rate Random Glucose 114 Calcium Level 8.0 Date/Time Procedure Status Source Growth 12/06/16 06:25 Cyclospora Exam - Final Complete Stool Stool NO CYCLOSPORA SEEN 12/06/16 06:25 Cryptosporidium Exam - Final Complete Stool Stool NEGATIVE - NO CRYPTOSPORIDIUM ANTIGEN... 12/06/16 06:25 Stool Pus (SAY) - Final Complete Stool Stool NO WBC'S SEEN 12/06/16 06:25 Giardia Antigen (SAY) - Final Complete Stool Stool NEGATIVE - NO GIARDIA ANTIGEN DETECTE... 12/06/16 06:25 - Final Complete Stool Stool Vibrio Group Imaging Last Impressions Bone Biopsy CT 12/06/16 1507 Signed Impressions: Service Date/Time: Tuesday, December 06, 2016 15:57 - CONCLUSION: 1. Uncomplicated CT guided bone marrow aspirate. 2. Uncomplicated CT guided bone marrow biopsy. Juan Miguel Meeks MD Abdomen Ultrasound 12/06/16 0000 Signed Impressions: Service Date/Time: Tuesday, December 06, 2016 08:44 - CONCLUSION: 1. Enlarged echogenic liver which can be seen with moderate hepatic steatosis versus status dysfunction 2. Small ascites. 3. Poorly visualized pancreas. 4. Cholelithiasis and gallbladder sludge. Juan Miguel Meeks MD Abdomen/Pelvis CT 12/05/16 0000 Signed Impressions: Service Date/Time: Tuesday, December 06, 2016 18:08 - CONCLUSION: Pleural effusions and lung base atelectasis. Severe hepatic steatosis. Gallstone. Small minor free peritoneal fluid. Talat Irwin MD Head CT 12/04/16 1047 Signed Impressions: Service Date/Time: Sunday, December 04, 2016 11:18 - CONCLUSION: Negative for an acute process.. Phoenix Mcknight MD FACR Chest X-Ray 12/04/16 1047 Signed Impressions: Service Date/Time: Sunday, December 04, 2016 10:44 - CONCLUSION: COPD. No evidence of acute process. Harjinder Stubbs MD Physical Exam HEENT: Normocephalic; atraumatic; no jaundice. CHEST: CTA, diminished CARDIAC: RRR ABDOMEN: Soft, nondistended, nontender; no hepatosplenomegaly; bowel sounds are present in all four quadrants. EXTREMITIES: No clubbing, cyanosis, or edema. 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 (Cheyenne Luque) Assessment and Plan Plan ASSESSMENT: - Severe anemia. today HH 10.4, 34.1 Pt has associated leukocytosis adn thrombocytosis, concerning for a myeloproliferative disorder. S/P EGD/ Colonoscopy to R/O GI blood loss (12/05/16)----> 1. Esophagitis distal esophagus-biopsy, gastritis antrum-biopsy, duodenitis biopsy 2. Retroflexed views revealed a hiatal hernia, 1. Diverticulosis sigmoid,descending 2. Retroflexed views revealed internal hemorrhoids 3. Retroflexed views revealed small internal hemorrhoids 4. Revealed an enlarged prostate. Admission HH 5.5/16.7. Absolute Retic 16.7, LDH 255. Haptoglobin 240. B12 >2000, Folate > 20.0, S/P 4 units PRBC. 10.2/ 31.3. Hematology following, Bone Marrow biopsy ordered. - Iron saturation 99.0. This was prior to blood transfusions. Previous Hfe gene not detected in 2016. - Diarrhea. Diarrhea x 2 weeks with 3-4 BMs per day. yesterday 1BM containing bright red blood. Today 2 BMs but not blood No risk factors for infectious etiology. c diff toxin pos, vibrio pos. Flagyl, doxycycline. ID consult pending. - Elevated LFTs with T. Bili 1.5, AST 111, ALT 34, ALk Phosph 109. Drinks 1 pint per day. US 12-06-16--> 1. Enlarged echogenic liver which can be seen with moderate hepatic steatosis versus status dysfunction 2. Small ascites. 3. Poorly visualized pancreas. 4. Cholelithiasis and gallbladder sludge. CT abd 12-05-16 ---> Pleural effusions and lung base atelectasis. Severe hepatic steatosis. Gallstone. Small minor free peritoneal fluid. - Thrombocytosis. Plts 1037--->413. These are chronically elevated. Previous JAK2 mutation was negative. Hematology following. - Chronic leukocytosis. WBC 38.8. Pt has had intermittent leukocytosis. Hematology following, bone marrow biopsy pending. Cdiff pos, vibrio pos. - Severe electrolyte abnormalities. Per primary - ETOH abuse, drinks 1 pint per day. DT precautions per primary PLAN: - antibiotics - ID consult - Cont. PPI - Monitor HH - Transfuse as necessary - Hematology following - hydration - Supportive care - Further recommendations to follow based on results of above - Pt seen and examined by Dr. Shanai vega myself and this note is written on her bhealf (Cheyenne Luque) Cheyenne Luque December 08, 2016 16:19 Patricia Jauregui MD December 08, 2016 18:06
[2016-12-08] MEDS: VANCOMYCIN 500 MG VIAL (FOR ORAL USE ONLY) PO SCH (20:06)
[2016-12-09] VITALS (7 sets, daily range): BP systolic 103–128; BP diastolic 68–84; PULSE 104–113; RESP 20–22; TEMP 97.4–98.2; O2SAT 91–97
[2016-12-09] MEDS: SODIUM CHLORIDE 0.9% FLUSH 10 ML FLUSH IV FLUSH SCH ×2 (09:00→20:47)
[2016-12-09] MEDS: PANTOPRAZOLE SOD 20 MG DELAYED RELEASE TAB PO SCH (09:00)
[2016-12-09] MEDS: NICOTINE 21 MG/24 HR PATCH T-DERMAL SCH (09:00)
[2016-12-09] MEDS: REMOVE OLD PATCH T-DERMAL SCH (09:00)
[2016-12-09] MEDS: DOXYCYCLINE HYCLATE 100 MG CAP PO SCH (09:00)
[2016-12-09] MEDS: THIAMINE HCL 100 MG TAB PO SCH (09:00)
[2016-12-09] MEDS: VANCOMYCIN 500 MG VIAL (FOR ORAL USE ONLY) PO SCH ×4 (09:00→20:47)
[2016-12-09 09:35] LABS: AUTOMATED NEUTROPHIL # 28.6 TH/MM3 (1.8-7.7); BASOPHIL # 0.2 TH/MM3 (0-0.2); BASOPHIL % 0.7 % (0.0-2.0); EOSINOPHIL % 0.1 % (0.0-4.0); HEMATOCRIT 32.7 % (39.0-51.0); LYMPH % 1.7 % (9.0-44.0); LYMPHOCYTE # 0.5 TH/MM3 (1.0-4.8); MEAN CELL VOLUME 90.2 FL (80.0-100.0); MEAN CORPUSCULAR HEMOGLOBIN 28.5 PG (27.0-34.0); MEAN CORPUSCULAR HGB CONC 31.6 % (32.0-36.0); MONO % 4.8 % (0.0-8.0); NEUT % 92.7 % (16.0-70.0); PLATELET COUNT 302 TH/MM3 (150-450); RED BLOOD COUNT 3.62 MIL/MM3 (4.50-5.90); RED CELL DISTRIBUTION WIDTH 19.1 % (11.6-17.2); WHITE BLOOD COUNT 30.9 TH/MM3 (4.0-11.0)
[2016-12-09 09:38] LABS: HEMO FLAGS AUTO DIFF
[2016-12-09 10:02] LABS: ALKALINE PHOSPHATASE 102 U/L (45-117); ALT (GPT) 36 U/L (12-78); ANION GAP 13 MEQ/L (5-15); AST (GOT) 39 U/L (15-37); BICARBONATE 18.1 MEQ/L (21.0-32.0); BLOOD UREA NITROGEN 17 MG/DL (7-18); CHLORIDE 111 MEQ/L (98-107); GLOMERULAR FILTRATION RATE 75 ML/MIN (>89); POTASSIUM 4.9 MEQ/L (3.5-5.1); SODIUM (NA) 142 MEQ/L (136-145); TOTAL BILIRUBIN ADULT 1.4 MG/DL (0.2-1.0)
--- NOTE | 2016-12-09 10:16 | HHI.FPPN ---
Subjective Remarks Patient was seen and examined this morning. He has tremors but denies anxiety or hallucinations. He has no abdominal pain, nausea, vomiting, but still is have liquid stools. Of note, he is chewing all his pills before swallowing them including capsules. He was switched from PO Flagyl to PO vancomycin yesterday and is tolerating this well. (Maddy Prince MD R1) Objective Vitals Vital Signs Date Time Temp Pulse Resp B/P Pulse Ox O2 Delivery O2 Flow Rate FiO2 12/09/16 07:48 98.2 104 20 128/68 95 12/09/16 04:00 Nasal Cannula 3.00 12/09/16 04:00 98.2 105 20 111/75 93 12/09/16 00:00 Nasal Cannula 3.00 12/09/16 00:00 98.2 104 20 103/73 94 12/08/16 20:00 Nasal Cannula 3.00 12/08/16 20:00 97.1 112 20 113/69 97 12/08/16 19:46 Nasal Cannula 3.00 12/08/16 16:00 Nasal Cannula 3.00 12/08/16 16:00 97.7 101 20 100/72 95 12/08/16 12:00 97.6 110 20 120/74 96 12/08/16 12:00 Nasal Cannula 3.00 I/O 12/08/16 12/08/16 12/08/16 12/09/16 12/09/16 12/09/16 07:00 15:00 23:00 07:00 15:00 23:00 Intake Total 984 ml 938 ml 220 ml Balance 984 ml 938 ml 220 ml Intake Oral 240 ml 220 ml IV Total 984 ml 698 ml # Voids 3 1 # Bowel Movements 1 1 (Maddy Prince MD R1) Result Diagram: 12/09/16 0843 12/09/16 0843 Imaging Last Impressions Bone Biopsy CT 12/06/16 1507 Signed Impressions: Service Date/Time: Tuesday, December 06, 2016 15:57 - CONCLUSION: 1. Uncomplicated CT guided bone marrow aspirate. 2. Uncomplicated CT guided bone marrow biopsy. Juan Miguel Meeks MD Abdomen Ultrasound 12/06/16 0000 Signed Impressions: Service Date/Time: Tuesday, December 06, 2016 08:44 - CONCLUSION: 1. Enlarged echogenic liver which can be seen with moderate hepatic steatosis versus status dysfunction 2. Small ascites. 3. Poorly visualized pancreas. 4. Cholelithiasis and gallbladder sludge. Juan Miguel Meeks MD Abdomen/Pelvis CT 12/05/16 0000 Signed Impressions: Service Date/Time: Tuesday, December 06, 2016 18:08 - CONCLUSION: Pleural effusions and lung base atelectasis. Severe hepatic steatosis. Gallstone. Small minor free peritoneal fluid. Talat Irwin MD Head CT 12/04/167 Signed Impressions: Service Date/Time: Sunday, December 04, 2016 11:18 - CONCLUSION: Negative for an acute process.. Phoenix Mcknight MD FACR Chest X-Ray 12/04/161046 Signed Impressions: Service Date/Time: Sunday, December 04, 2016 10:44 - CONCLUSION: COPD. No evidence of acute process. Harjinder Stubbs MD Objective Remarks GENERAL: Elderly male lying in bed in no apparent distress. He is alert but tremulous today. SKIN: Warm and dry. Scattered ecchymoses. HEAD: Atraumatic. Normocephalic. EYES: Pupils equal and round. No scleral icterus. No injection or drainage. ENT: No nasal bleeding or discharge. Mucous membranes pink and moist. NECK: Trachea midline. No JVD. CARDIOVASCULAR: Regular rate and rhythm. No murmurs RESPIRATORY: No accessory muscle use. Lung sounds coarse until patient coughed, then clear. Non-productive cough. GASTROINTESTINAL: Abdomen soft, non-tender, nondistended. Hepatic and splenic margins not palpable. MUSCULOSKELETAL: Extremities without clubbing, cyanosis, or edema. No obvious deformities. NEUROLOGICAL: Awake and alert. No obvious cranial nerve deficits. Weak. Tremulous. Normal speech. PSYCHIATRIC: Appropriate mood and affect; insight and judgment normal. Procedures EGD/colonoscopy performed on 12/05/16 Medications and IVs Inpatient Medications Acetaminophen (Tylenol) 650 mg Q4H PRN PO SEE LABEL COMMENTS; Start 12/05/16 at 11:00; Stop 12/05/16 at 15:01; Status DC Acetaminophen 650 mg 650 mg UNSCH X1 PRN PO FEVER; Start 12/04/16 at 12:30; Stop 12/07/16 at 12:29; Status DC Albuterol/ Ipratropium (Duoneb Neb) 1 ampule Q6HR WHILE AWAKE NEB PRN NEB SOB/ WHEEZING; Start 12/04/16 at 15:00 Azithromycin (Zithromax) 1,000 mg ONCE ONCE PO Last administered on 12/07/16 16:00; Start 12/07/16 at 14:30; Stop 12/07/16 at 15:00; Status DC Diatrizoate Meglum/ Diatrizoate Sod ( Gastroyoav Liq) 18 ml ONCE ONCE PO ; Start 12/06/16 at 21:30; Stop 12/06/16 at 21:31; Status DC Diphenhydramine HCl (Benadryl Inj) 25 mg UNSCH X1 PRN IV ITCHING Last administered on 12/04/16 14:48; Start 12/04/16 at 12:30; Stop 12/07/16 at 12:29; Status DC Diphenhydramine HCl (Benadryl) 25 mg Q4H PRN PO SEE LABEL COMMENTS; Start at 11:00; Stop 12/05/16 at 15:01; Status DC Doxycycline Hyclate (Vibramycin) 100 mg BID PO Last administered on 12/08/16 20:06; Start 12/07/16 at 21:00; Stop 12/21/16 at 20:59 Flumazenil (Romazicon Inj) 0.2 mg Q1M PRN IV PUSH SEE LABEL COMMENTS; Start 12/04/16 at 13:30 Folic Acid (Folate) 1 mg Q24H PO Last administered on 12/08/16 13:30; Start at 14:00; Stop 12/09/16 at 13:59 Haloperidol Lactate 2 mg 2 mg Q15M PRN IM SEE LABEL COMMENTS; Start 12/04/16 at 15:00 Ibuprofen (Motrin) 400 mg Q6H PRN PO PAIN OR FEVER >101F; Start 12/04/16 at 16: 00 Lorazepam (Ativan Inj) 2 mg Q15M PRN IV PUSH CIWA > 20; Start 12/04/16 at 13:30 Lorazepam (Ativan) 2 mg Q2H PRN PO CIWA 11-14; Start 12/04/16 at 13:30 Magnesium Sulfate/ Dextrose (Magnesium Sulfate 1 Gm Premix) 100 ml @ 100 mls/ hr ONCE ONCE IV Last administered on 12/04/16 15:21; Start 12/04/16 at 14:45; Stop 12/04/16 at 15:44; Status DC Metronidazole (Flagyl) 500 mg TID PO Last administered on 12/08/16 17:30; Start 12/07/16 at 13:00; Stop 12/08/16 at 18:52; Status DC Miscellaneous Information 1 1 DAILY T-DERMAL Last administered on 12/08/16 08: 58; Start 12/05/16 at 09:00 Morphine Sulfate (Morphine Inj) 1 mg Q3H PRN IV BREAKTHROUGH PAIN; Start at 16:00 Multivitamins/ Minerals Therapeutic (Theragran M Tab) 1 tab Q24H PO Last administered on 12/08/16 13:30; Start 12/04/16 at 14:00; Stop 12/09/16 at 13:59 Naloxone HCl (Narcan Inj) 0.4 mg UNSCH PRN IV SEE LABEL COMMENTS; Start at 16:00 Nicotine (Habitrol 21 Mg Patch.24 Hr) 1 patch DAILY T-DERMAL Last administered on 12/08/16 08:55; Start 12/04/16 at 14:00 Ondansetron HCl (Zofran Inj) 4 mg Q6H PRN IVP NAUSEA OR VOMITING; Start at 13:30 Pantoprazole Sodium (Protonix) 20 mg DAILY PO Last administered on 12/08/16 08 :55; Start 12/06/16 at 10:30 Polyethylene Glycol/ Electrolytes 4000 ml 4,000 ml ONCE ONCE PO Last administered on 12/04/16 17:54; Start 12/04/16 at 17:00; Stop 12/04/16 at 17:01; Status DC Potassium Chloride/Sodium Chloride (NS + KCl 40 Meq Inj) 1,000 ml @ 100 mls/hr Q10H IV Last administered on 12/08/16 08:55; Start 12/04/16 at 15:15; Stop 07/15 at 14:27; Status DC Potassium Bicarb/ Potassium Chloride (K-Lyte Cl Eff) 50 meq ONCE ONCE PO Last administered on 12/04/16 12:47; Start 12/04/16 at 12:00; Stop 12/04/16 at 12: 01; Status DC Potassium Chloride (KCl) 50 meq ONCE ONCE PO Last administered on 12/05/16 14: 56; Start 12/05/16 at 15:00; Stop 12/05/16 at 15:01; Status DC Sodium Chloride (NS 1000 ml Inj) 1,000 ml @ 100 mls/hr Q10H IV Last administered on 12/04/16 14:02; Start 12/04/16 at 14:00; Stop 12/04/16 at 15:00; Status DC Sodium Chloride (NS 250 ml Inj) 250 ml @ 15 mls/hr ONCE ONCE IV Last administered on 12/05/16 11:00; Start 12/05/16 at 11:00; Stop 12/06/16 at 03:39; Status DC Sodium Chloride (NS Flush) 2 ml BID IV FLUSH Last administered on 12/08/16 20: 06; Start 12/04/16 at 21:00 Thiamine HCl (Vitamin B1) 100 mg DAILY PO Last administered on 12/08/16 08:55 ; Start 12/05/16 at 09:00 Vancomycin HCl (VANCOMYCIN for oral use only) 125 mg QID PO Last administered on 12/08/16 20:06; Start 12/08/16 at 21:00; Stop 01/09/17 at 20:59 (Maddy Prince MD R1) Urinary Catheter: No (Maddy Prince MD R1) Vascular Central Line Catheter: No (Maddy Prince MD R1) A/P Assessment and Plan 66-year-old male with a history of alcoholism who presents with lower extremity weakness and symptomatic anemia without evidence of shock. He was admitted for management of weakness likely due to symptomatic anemia and found to have significant blood dyscrasias which warrant work up Discharge Planning Pending results of bone marrow biopsy and hematology recommendations Patient to be discharged to SNF upon clearance from Hematology (Maddy Prince MD R1) Attending Attestation Patient seen and examined. Case reviewed and discussed with the resident team. Agree with plan of care as discussed with me and documented in the resident note. (Poppy Vernon MD) Problem List: (1) Severe anemia Status: Acute Plan: Anemia is improved at this time, H/H stable at approximately 10/32. Working up to cause of the anemia, appreciate heme recs/mgmt. Concern for possible leukemia versus other form of bone marrow etiology. Bone marrow results pending. Plan: * Status post 2 units of blood transfused on 12/04, and 2 more units on 12/05, leuko -reduced * Isotonic IVF at 100 mL per hour with 40 mEq potassium per liter, will need more K today * Will monitor fluid status closely, noted to have significant hypokalemia on admission * Gastroenterology consult to assess for possible GI acute versus chronic losses , panendoscopy performed with no active bleeding * Hematology consult to assess blood dyscrasia as patient also has significant leukocytosis and thrombocytosis. His reticulocyte count is low. This could possibly be related to intrinsic bone marrow disorder or malignancy; was recommended the patient get bone marrow biopsy in past evaluation but patient declined. He will have this done during this hospitalization. * Peripheral blood smear ordered, results still pending * Bone marrow results pending; flow cytometry showing myeloproliferative disorder, pathology result pending (2) Vibrio cholera infection Status: Acute Plan: Continue doxycycline 100mg BID PO, start date 12/07, end date 12/21. Hospital course: Patient is noted to have Vibrio of unknown species on stool study collected . This is possibly contributing to diarrhea. He was started on doxycycline PO on 12/07. Infectious disease was consulted, appreciate recs on further management (3) Clostridium difficile diarrhea Status: Acute Plan: Continue vancomycin PO 125mg PO QID, per infectious disease recommendations. The stop date for this will 01/09/17 per ID Hospital course: * Noted to have stool positive for C difficile on 12/06 specimen and diarrhea. This is after panendoscopy, which was not notable for colitis. Diarrhea noted to be improved on 12/08 * PO Flagyl on 12/07, reported decreased appetite, switched to by PO Vanc on 12/08 (4) Weakness of both lower extremities Status: Acute Plan: Plan: * Corrected anemia as above * Replete electrolytes and monitor levels * PT assessment and continued evaluation, currently recommending rehabilitation with wheeled walker which was ordered * Monitor neuro exam Hospital Course: Patient presented with two-week history of falls related to lower extremity weakness. This is likely related to alcoholism and symptomatic anemia. He also has metabolic disturbances, most notably hypokalemia and hypomagnesemia. Patient is neurologically normal and lower extremities have normal strength on exam. CT of the head was performed in ED and showed no evidence of acute bleed. (5) Hypokalemia Status: Acute Plan: Improved. Likely multifactorial. Improved with repletion. Will continue to monitor. He reports poor nutrition and is a chronic alcoholic. EKG is unremarkable. Plan: * Discontinue telemetry * Trend BMP * Continue to replete by mouth and per IV as needed (6) Dyspnea Status: Acute Plan: Improved significantly. Etiology likely anemia. Plan: * Nasal cannula oxygen supplementation as needed, wean to go O2 greater than 92% * Per EMR, patient might have COPD; will add Duonebs when necessary. CXR performed in ED was unremarkable (7) Leukocytosis Status: Chronic Plan: Plan: * Treat C diff as this could be contributing * Monitor CBC, sx, vitals * Peripheral smear as above * Hematology consult as above Hospital Course: Patient noted to have a significant leukocytosis on admission. This is chronic, with WBC noted to be as high as 33K in late 2015. Patient was evaluated by medical oncology at that time and bone marrow biopsy was recommended which patient declined. There is no evidence of infection. (8) Platelet disorder Status: Chronic Plan: Chronic thrombocytosis, work-up and management as above. (9) Alcoholism Status: Chronic Plan: Chronic alcoholism noted. He claims to drink a pint of rum daily and notes that he has never fully stopped alcohol. Denies history of seizure. Plan: * CIWA protocol * Folate, thiamine, multivitamin by mouth * Seizure precautions per CIWA * Glucose monitoring per CIWA * Managed electrolytes as above * Case management (10) Tobacco abuse Status: Chronic Plan: Chronic. Almost 2 pack per day smoking history. Nicotine high-dose patch given. (11) Fluids/Electrolytes/Nutrition/Prophylaxis Status: Acute Plan: Fluids: tolerating PO/NS @ 100ml/hr. May hep lock if needed Electrolytes: monitor and replete as needed Nutrition: Heart healthy DVT Prophylaxis: Bilateral SCDs only give likely acute blood loss GI prophylaxis: Protonix (Maddy Prince MD R1) Problem Qualifiers (1) Dyspnea: Qualified Code: R06.09 - Dyspnea on exertion (2) Leukocytosis: Qualified Code: D72.829 - Leukocytosis, unspecified type Maddy Prince MD R1 December 09, 2016 10:16 Poppy Vernon MD December 09, 2016 14:25
[2016-12-09 10:35] LABS: BANDS 15 % (0-6); MYELOCYTES 6 % (0-0); NEUTROPHIL # MANUAL DIFF 28.4 TH/MM3 (1.8-7.7); POLYS (SEG NEUTROPHILS) 69 % (16-70); PROMYELOCYTES 2 % (0-0); WBC DIFF SAMPLE 100
[2016-12-09 10:36] LABS: PLATELET ESTIMATE SMEAR NORMAL (NORMAL); PLATELET MORPHOLOGY ENLARGED (NORMAL)
[2016-12-09 10:38] LABS: ACANTHOCYTES OCC (NORMAL); KERATOCYTES OCC (NORMAL); SCAN/DIFF FINAL DIFF MANUAL
[2016-12-09] MEDS ORDERED: WALKER WHEELS/F1 MIS (11:24)
[2016-12-09] MEDS: FOLIC ACID 1 MG TAB PO SCH (11:25)
[2016-12-09] MEDS ORDERED: SODIUM PHOSPHATE INJ 30 MMOL in SODIUM CHLOR 0.9% 250 ML INJ 250 ML IV ONE (12:15)
[2016-12-09] MEDS ORDERED: MAGNESIUM SULFATE 1 GM PREMIX 100 ML IV ONE (12:15)
--- NOTE | 2016-12-09 16:52 | HHI.GIFU ---
Subjective Remarks Resting in bed. Poor appetite. No pain. One stool today. (JeanethKaren Sandyfareed GASPAR) Objective Vitals I&O Vital Signs Date Time Temp Pulse Resp B/P Pulse Ox O2 Delivery O2 Flow Rate FiO2 12/09/16 15:37 97.8 113 20 113/84 97 12/09/16 11:46 97.8 109 20 122/78 95 12/09/16 08:00 93 Nasal Cannula 3.00 12/09/16 07:48 98.2 104 20 128/68 95 12/09/16 04:00 Nasal Cannula 3.00 12/09/16 04:00 98.2 105 20 111/75 93 12/09/16 00:00 Nasal Cannula 3.00 12/09/16 00:00 98.2 104 20 103/73 94 12/08/16 20:00 Nasal Cannula 3.00 12/08/16 20:00 97.1 112 20 113/69 97 12/08/16 19:46 Nasal Cannula 3.00 I/O 12/08/16 12/08/16 12/08/16 12/09/16 12/09/16 12/09/16 07:00 15:00 23:00 07:00 15:00 23:00 Intake Total 984 ml 938 ml 220 ml Balance 984 ml 938 ml 220 ml Intake Oral 240 ml 220 ml IV Total 984 ml 698 ml # Voids 3 1 # Bowel Movements 1 1 Laboratory Laboratory Tests Test 12/09/16 08:43 White Blood Count 30.9 Red Blood Count 3.62 Hemoglobin 10.3 Hematocrit 32.7 Mean Corpuscular Volume 90.2 Mean Corpuscular Hemoglobin 28.5 Mean Corpuscular Hemoglobin 31.6 Concent Red Cell Distribution Width 19.1 Platelet Count 302 Mean Platelet Volume 10.9 Neutrophils (%) (Auto) 92.7 Lymphocytes (%) (Auto) 1.7 Monocytes (%) (Auto) 4.8 Eosinophils (%) (Auto) 0.1 Basophils (%) (Auto) 0.7 Neutrophils # (Auto) 28.6 Lymphocytes # (Auto) 0.5 Monocytes # (Auto) 1.5 Eosinophils # (Auto) 0.0 Basophils # (Auto) 0.2 CBC Comment AUTO DIFF Differential Total Cells 100 Counted Neutrophils % (Manual) 69 Band Neutrophils % 15 Lymphocytes % 5 Monocytes % 3 Neutrophils # (Manual) 28.4 Myelocytes 6 Promyelocytes 2 Differential Comment FINAL DIFF MANUAL Platelet Estimate NORMAL Platelet Morphology Comment ENLARGED Acanthocytes OCC Keratocytes OCC Blood Smear Pathologist Review Sodium Level 142 Potassium Level 4.9 Chloride Level 111 Carbon Dioxide Level 18.1 Anion Gap 13 Blood Urea Nitrogen 17 Creatinine 1.00 Estimat Glomerular Filtration 75 Rate Random Glucose 94 Calcium Level 8.0 Phosphorus Level 1.3 Magnesium Level 1.0 Total Bilirubin 1.4 Aspartate Amino Transf 39 (AST/SGOT) Alanine Aminotransferase 36 (ALT/SGPT) Alkaline Phosphatase 102 Total Protein 5.5 Albumin 2.1 Date/Time Procedure Status Source Growth 12/06/16 06:25 Cyclospora Exam - Final Complete Stool Stool NO CYCLOSPORA SEEN 12/06/16 06:25 Cryptosporidium Exam - Final Complete Stool Stool NEGATIVE - NO CRYPTOSPORIDIUM ANTIGEN... 12/06/16 06:25 Stool Pus (SAY) - Final Complete Stool Stool NO WBC'S SEEN 12/06/16 06:25 Giardia Antigen (SAY) - Final Complete Stool Stool NEGATIVE - NO GIARDIA ANTIGEN DETECTE... 12/06/16 06:25 - Final Complete Stool Stool Vibrio [facility] Imaging Last Impressions Bone Biopsy CT 12/06/16 1507 Signed Impressions: Service Date/Time: Tuesday, December 06, 2016 15:57 - CONCLUSION: 1. Uncomplicated CT guided bone marrow aspirate. 2. Uncomplicated CT guided bone marrow biopsy. Juan Miguel Meeks MD Abdomen Ultrasound 12/06/16 0000 Signed Impressions: Service Date/Time: Tuesday, December 06, 2016 08:44 - CONCLUSION: 1. Enlarged echogenic liver which can be seen with moderate hepatic steatosis versus status dysfunction 2. Small ascites. 3. Poorly visualized pancreas. 4. Cholelithiasis and gallbladder sludge. Juan Miguel Meeks MD Abdomen/Pelvis CT 12/05/16 0000 Signed Impressions: Service Date/Time: Tuesday, December 06, 2016 18:08 - CONCLUSION: Pleural effusions and lung base atelectasis. Severe hepatic steatosis. Gallstone. Small minor free peritoneal fluid. Talat Irwin MD Head CT 12/04/16 1047 Signed Impressions: Service Date/Time: Sunday, December 04, 2016 11:18 - CONCLUSION: Negative for an acute process.. Phoenix Mcknight MD FACR Chest X-Ray 12/04/16 1047 Signed Impressions: Service Date/Time: Sunday, December 04, 2016 10:44 - CONCLUSION: COPD. No evidence of acute process. Harjinder Stubbs MD Physical Exam HEENT: Normocephalic; atraumatic; no jaundice. CHEST: CTA, diminished CARDIAC: RRR ABDOMEN: Soft, nondistended, nontender; no hepatosplenomegaly; bowel sounds are present in all four quadrants. EXTREMITIES: No clubbing, cyanosis, or edema. SKIN: Multiple abrasions, ecchymotic areas TRAFFIC TECHNICIAN: No focal deficits; lethargic and oriented times three. (JeanethKaren Delgado [facility]) Assessment and Plan Plan ASSESSMENT: - Severe anemia. Pt has associated leukocytosis adn thrombocytosis, concerning for a myeloproliferative disorder. S/P EGD/Colonoscopy to R/O GI blood loss (12/05/16)----> 1. Esophagitis distal esophagus-biopsy, gastritis antrum-biopsy, duodenitis biopsy 2. Retroflexed views revealed a hiatal hernia, 1. Diverticulosis sigmoid,descending 2. Retroflexed views revealed internal hemorrhoids 3. Retroflexed views revealed small internal hemorrhoids 4. Revealed an enlarged prostate. Second portion duodenum, small bowel mucosa with no significant histopathologic abnormalities, the villous architecture is normal, antral mucosa with no significant histopathologic abnormalities, acute esophagitis with ulceration, viral inclusions are not identieied. A GMS stain is negative for fungal organisms. Admission HH 5.5/16.7. Absolute Retic 16.7, LDH 255. Haptoglobin 240. B12 > 2000, Folate > 20.0, S/P 4 units PRBC. 10.3/32.7. Hematology following, Bone Marrow biopsy (12/06/16), pathology pending. - Iron saturation 99.0. This was prior to blood transfusions. Previous Hfe gene not detected in 2016. - Diarrhea (Epid 027 negative), Vibrio. Oral Vanco, Doxycycline. - Elevated LFTs Drinks 1 pint per day. US 12-06-16--> 1. Enlarged echogenic liver which can be seen with moderate hepatic steatosis versus status dysfunction 2. Small ascites. 3. Poorly visualized pancreas. 4. Cholelithiasis and gallbladder sludge. CT abd 12-05-16 ---> Pleural effusions and lung base atelectasis. Severe hepatic steatosis. Gallstone. Small minor free peritoneal fluid. - Thrombocytosis. Plts 1037--->302. These are chronically elevated. Previous JAK2 mutation was negative. Hematology following. - Chronic leukocytosis. WBC 30.9. Pt has had intermittent leukocytosis. Hematology following, bone marrow biopsy pending. Cdiff pos, vibrio pos. - Severe electrolyte abnormalities. Per primary - ETOH abuse, drinks 1 pint per day. DT precautions per primary PLAN: - HUA - Await pathology - Abx per ID - Cont. PPI - Monitor HH - Transfuse as necessary - Hematology following - hydration - Supportive care - Further recommendations to follow based on results of above - Pt seen and examined by Dr. Jauregui and myself and this note is written on her behalf (Karen Eric) Karen Eric December 09, 2016 16:52 Patricia Jauregui MD December 16, 2016 08:51
[2016-12-09] MEDS: DOXYCYCLINE HYCLATE 100 MG TAB PO SCH (20:47)
--- NOTE | 2016-12-09 22:43 | HHI.PR ---
Addendum to Inpatient Note Addendum Reason: Additional Documentation Additional Information 66 year old male admitted for symptomatic anemia. H/o alcohol abuse. Called regarding swelling of left arm and cough sounding more wet. Per patient his cough has been present over last couple days but he says it seems to have worsened in the last several hours. Objective VITALS: Reviewed and stable from prior (slight tachycardia, BP wnl, O2 sat >92 on 3L NC) GEN: WDWN disheveled adult white male lying in bed in NAD. Drifting off to sleep but awakens easily. RESP: Referred upper airway sounds more prominent on expiration. No crackles. Slight wheeze RLL. CV: Tachycardic with regular rhythm, normal S1/S2, no murmur MSK: LUE with non-pitting edema compared to right side. BLE without edema or cyanosis. SKIN: LUE with slight erythema in area of arm contact with pillow. A/P Respiratory symptoms sounding stable with questionable worsened cough, faint wheeze RLL. Likely no acute change but potentially could be atelectasis versus aspiration PNA though patient afebrile. - CXR - Single DuoNeb treatment (may help symptomatically given wheeze) - Incentive spirometry - Chest vibratory therapy vida Gallow[facility] medicine team in the AM Quinton Russo MD R1 December 09, 2016 22:43
[2016-12-09] MEDS ORDERED: RESP: ALBUTEROL 2.5 MG/IPRATROPIUM 0.5 MG NEB (SCH) NEB ONE (22:45)
--- NOTE | 2016-12-09 23:02 | RADRPT ---
EXAM DATE/TIME: 12/09/2016 22:37 [facility] COMPARISON: CHEST SINGLE AP, December 04, 2016, 10:44. INDICATIONS : Cough and congestion. MEDICAL HISTORY : None. SURGICAL HISTORY : None. ENCOUNTER: Subsequent ACUITY: 1 day PAIN SCORE: 0/10 LOCATION: Bilateral chest FINDINGS: There is patchy opacity within the right mid and lower lung field consistent with probable pneumonia. Small bilateral pleural effusions are noted. The heart is enlarged. Degenerative changes are note d throughout the thoracic spine. CONCLUSION: 1. Patchy opacity within the right mid and lower lung field consistent with probable pneumonia. Cli nical correlation is recommended. 2. Small bilateral pleural effusions. 3. Cardiomegaly. 4. Degenerative changes throughout the thoracic spine. Iban Quezada MD on December 09, 2016 at 22:54 Board Certified Radiologist. This report was verified electronically.
[2016-12-10] VITALS (8 sets, daily range): BP systolic 96–117; BP diastolic 51–62; PULSE 98–108; RESP 18–20; TEMP 97.6–99.1; O2SAT 91–93
[2016-12-10 08:43] LABS: AUTOMATED NEUTROPHIL # 26.6 TH/MM3 (1.8-7.7); BASOPHIL # 0.2 TH/MM3 (0-0.2); BASOPHIL % 0.8 % (0.0-2.0); EOSINOPHIL # 0.1 TH/MM3 (0-0.4); EOSINOPHIL % 0.3 % (0.0-4.0); HEMATOCRIT 32.1 % (39.0-51.0); LYMPHOCYTE # 0.6 TH/MM3 (1.0-4.8); MEAN CELL VOLUME 90.7 FL (80.0-100.0); MEAN CORPUSCULAR HEMOGLOBIN 28.6 PG (27.0-34.0); MEAN CORPUSCULAR HGB CONC 31.5 % (32.0-36.0); MONO % 3.5 % (0.0-8.0); NEUT % 93.4 % (16.0-70.0); PLATELET COUNT 190 TH/MM3 (150-450); RED BLOOD COUNT 3.53 MIL/MM3 (4.50-5.90); RED CELL DISTRIBUTION WIDTH 19.1 % (11.6-17.2); WHITE BLOOD COUNT 28.5 TH/MM3 (4.0-11.0)
[2016-12-10 08:50] LABS: HEMO FLAGS AUTO DIFF
[2016-12-10] MEDS: DOXYCYCLINE HYCLATE 100 MG TAB PO SCH ×2 (09:00→21:22)
[2016-12-10] MEDS: THIAMINE HCL 100 MG TAB PO SCH (09:00)
[2016-12-10] MEDS: REMOVE OLD PATCH T-DERMAL SCH (09:00)
[2016-12-10] MEDS: NICOTINE 21 MG/24 HR PATCH T-DERMAL SCH (09:00)
[2016-12-10] MEDS: SODIUM CHLORIDE 0.9% FLUSH 10 ML FLUSH IV FLUSH SCH ×2 (09:00→21:23)
[2016-12-10] MEDS: LACTOBACILLUS ACIDOPHILUS TAB PO SCH ×3 (09:05→17:25)
[2016-12-10] MEDS: VANCOMYCIN 500 MG VIAL (FOR ORAL USE ONLY) PO SCH ×4 (09:05→21:22)
[2016-12-10] MEDS: PANTOPRAZOLE SOD 20 MG DELAYED RELEASE TAB PO SCH (09:05)
[2016-12-10 09:16] LABS: BICARBONATE 19.5 MEQ/L (21.0-32.0); MAGNESIUM 1.3 MG/DL (1.5-2.5); POTASSIUM 4.4 MEQ/L (3.5-5.1)
[2016-12-10 09:30] LABS: BANDS 21 % (0-6); MYELOCYTES 3 % (0-0); NEUTROPHIL # MANUAL DIFF 25.4 TH/MM3 (1.8-7.7); POLYS (SEG NEUTROPHILS) 65 % (16-70); WBC DIFF SAMPLE 100
[2016-12-10 09:33] LABS: PLATELET ESTIMATE SMEAR NORMAL (NORMAL)
[2016-12-10 09:34] LABS: PLATELET MORPHOLOGY ENLARGED (NORMAL)
[2016-12-10 09:36] LABS: ACANTHOCYTES OCC (NORMAL); KERATOCYTES OCC (NORMAL)
[2016-12-10 09:37] LABS: BURR CELLS 1+ (NORMAL); SCAN/DIFF FINAL DIFF MANUAL
[2016-12-10] MEDS: MAGNESIUM SULFATE 1 GM PREMIX 100 ML IV SCH ×2 (10:00→11:00)
--- NOTE | 2016-12-10 10:52 | HHI.GIFU ---
Subjective Remarks Resting in bed. No apparent distress. Poor appetite. (Roxie Milligan) Objective Vitals I&O Vital Signs Date Time Temp Pulse Resp B/P Pulse Ox O2 Delivery O2 Flow Rate FiO2 12/10/16 08:00 98.1 104 18 106/54 91 12/10/16 08:00 93 Nasal Cannula 3.00 12/10/16 04:00 Nasal Cannula 3.00 12/10/16 04:00 98.4 100 20 104/62 91 12/10/16 00:00 99.0 108 20 113/60 93 12/10/16 00:00 Nasal Cannula 3.00 12/09/16 23:39 92 Nasal Cannula 3.00 12/09/16 20:00 Nasal Cannula 3.00 12/09/16 20:00 97.4 110 22 117/73 91 12/09/16 15:37 97.8 113 20 113/84 97 12/09/16 11:46 97.8 109 20 122/78 95 I/O 12/09/16 12/09/16 12/09/16 12/10/16 12/10/16 12/10/16 07:00 15:00 23:00 07:00 15:00 23:00 Intake Total 480 ml Output Total 325 ml Balance 155 ml Intake Oral 480 ml Output Urine Total 325 ml # Bowel Movements 1 Laboratory Laboratory Tests Test 12/10/16 07:35 White Blood Count 28.5 Red Blood Count 3.53 Hemoglobin 10.1 Hematocrit 32.1 Mean Corpuscular Volume 90.7 Mean Corpuscular Hemoglobin 28.6 Mean Corpuscular Hemoglobin 31.5 Concent Red Cell Distribution Width 19.1 Platelet Count 190 Mean Platelet Volume 11.0 Neutrophils (%) (Auto) 93.4 Lymphocytes (%) (Auto) 2.0 Monocytes (%) (Auto) 3.5 Eosinophils (%) (Auto) 0.3 Basophils (%) (Auto) 0.8 Neutrophils # (Auto) 26.6 Lymphocytes # (Auto) 0.6 Monocytes # (Auto) 1.0 Eosinophils # (Auto) 0.1 Basophils # (Auto) 0.2 CBC Comment AUTO DIFF Differential Total Cells 100 Counted Neutrophils % (Manual) 65 Band Neutrophils % 21 Lymphocytes % 5 Monocytes % 6 Neutrophils # (Manual) 25.4 Myelocytes 3 Differential Comment FINAL DIFF MANUAL Platelet Estimate NORMAL Platelet Morphology Comment ENLARGED [place] Cells 1+ Acanthocytes OCC Keratocytes OCC Sodium Level 142 Potassium Level 4.4 Chloride Level 111 Carbon Dioxide Level 19.5 Anion Gap 12 Blood Urea Nitrogen 18 Creatinine 0.85 Estimat Glomerular Filtration 90 Rate Random Glucose 78 Calcium Level 8.0 Phosphorus Level 4.0 Magnesium Level 1.3 Date/Time Procedure Status Source Growth 12/06/16 06:25 Cyclospora Exam - Final Complete Stool Stool NO CYCLOSPORA SEEN 12/06/16 06:25 Cryptosporidium Exam - Final Complete Stool Stool NEGATIVE - NO CRYPTOSPORIDIUM ANTIGEN... 12/06/16 06:25 Stool Pus (SAY) - Final Complete Stool Stool NO WBC'S SEEN 12/06/16 06:25 Giardia Antigen (SAY) - Final Complete Stool Stool NEGATIVE - NO GIARDIA ANTIGEN DETECTE... 12/06/16 06:25 - Final Complete Stool Stool [facility] Last Impressions Bone Biopsy CT 12/06/16 1507 Signed Impressions: Service Date/Time: Tuesday, December 06, 2016 15:57 - CONCLUSION: 1. Uncomplicated CT guided bone marrow aspirate. 2. Uncomplicated CT guided bone marrow biopsy. Juan Miguel Meeks MD Abdomen Ultrasound 12/06/16 0000 Signed Impressions: Service Date/Time: Tuesday, December 06, 2016 08:44 - CONCLUSION: 1. Enlarged echogenic liver which can be seen with moderate hepatic steatosis versus status dysfunction 2. Small ascites. 3. Poorly visualized pancreas. 4. Cholelithiasis and gallbladder sludge. Juan Miguel Meeks MD Abdomen/Pelvis CT 12/05/16 0000 Signed Impressions: Service Date/Time: Tuesday, December 06, 2016 18:08 - CONCLUSION: Pleural effusions and lung base atelectasis. Severe hepatic steatosis. Gallstone. Small minor free peritoneal fluid. Talat Irwin MD Head CT 12/04/16 1047 Signed Impressions: Service Date/Time: Sunday, December 04, 2016 11:18 - CONCLUSION: Negative for an acute process.. Phoenix Mcknight MD FACR Chest X-Ray 12/04/16 1047 Signed Impressions: Service Date/Time: Sunday, December 04, 2016 10:44 - CONCLUSION: COPD. No evidence of acute process. Harjinder Stubbs MD Physical Exam HEENT: Normocephalic; atraumatic; no jaundice. CHEST: CTA, diminished CARDIAC: RRR ABDOMEN: Soft, nondistended, nontender; no hepatosplenomegaly; bowel sounds x 4 quadrants. EXTREMITIES: No clubbing, cyanosis, or edema. SKIN: Multiple abrasions, ecchymotic areas [employer]: No focal deficits; lethargic and oriented times three. (Roxie Milligan) Assessment and Plan Plan ASSESSMENT: - Severe anemia. Pt has associated leukocytosis and thrombocytosis, concerning for a myeloproliferative disorder. S/P EGD/Colonoscopy to R/O GI blood loss (12/05/16)----> 1. Esophagitis distal esophagus-biopsy, gastritis antrum-biopsy, duodenitis biopsy 2. Retroflexed views revealed a hiatal hernia, 1. Diverticulosis sigmoid,descending 2. Retroflexed views revealed internal hemorrhoids 3. Retroflexed views revealed small internal hemorrhoids 4. Revealed an enlarged prostate. Second portion duodenum, small bowel mucosa with no significant histopathologic abnormalities, the villous architecture is normal, antral mucosa with no significant histopathologic abnormalities, acute esophagitis with ulceration, viral inclusions are not identified. A GMS stain is negative for fungal organisms. Admission HH 5.5/16.7. Absolute Retic 16.7, LDH 255. Haptoglobin 240. B12 > 2000, Folate > 20.0, S/P 4 units PRBC. 10.3/32.7. Hematology following, Bone Marrow biopsy (12/06/16), pathology pending. HH 14, 10.1/32.1 - Iron saturation 99.0. This was prior to blood transfusions. Previous Hfe gene not detected in 2016. - Diarrhea (Epid 027 negative), Vibrio. Oral Vanco, Doxycycline. - Elevated LFTs Drinks 1 pint per day. US 12-06-16--> 1. Enlarged echogenic liver which can be seen with moderate hepatic steatosis versus status dysfunction 2. Small ascites. 3. Poorly visualized pancreas. 4. Cholelithiasis and gallbladder sludge. CT abd 12-05-16 ---> Pleural effusions and lung base atelectasis. Severe hepatic steatosis. Gallstone. Small minor free peritoneal fluid. - Thrombocytosis. Plts 1037--->302. These are chronically elevated. Previous JAK2 mutation was negative. Hematology following. Plts 12/10, 190 - Chronic leukocytosis. WBC 30.9. Pt has had intermittent leukocytosis. Hematology following, bone marrow biopsy pending. Cdiff pos, vibrio pos. - Severe electrolyte abnormalities. Per primary. WBC 12/10, 28.5 - ETOH abuse, drinks 1 pint per day. DT precautions per primary PLAN: - HUA - Await pathology - Abx per ID - Cont. PPI - Monitor HH - Transfuse as necessary - Hematology following - Hydration - Supportive care - Further recommendations to follow based on results of above Patient seen and examined by Dr. Jauregui and myself and this note is written on her behalf (Roxie Milligan) Physician Comments seen, examined agree with above fu pathology rhonchi bilateral, sob going now for cta lungs (Patricia Jauregui MD) Roxie Milligan December 10, 2016 10:52 Patricia Jauregui MD December 10, 2016 16:39
[2016-12-10] MEDS: FUROSEMIDE 40 MG/4 ML VIAL IV PUSH SCH (11:00)
--- NOTE | 2016-12-10 11:16 | HHI.FPPN ---
Subjective Remarks Mr Uribe is better with his diarrhea. He had 2 stools total reported over the past day. He wets the bed so his Is and Os have been difficult to track. However , he has increased his weight since admission. He is more SOB today than before. He is not the best historian and states he feels his breathing is improved since yesterday but based on my assessment he his breathing more deeply and often though not struggling and able to speak in full sentences. His BNP was over 3000 this am. He will be given lasix and can be followed. His left arm is more swollen and the iv has been moved to his right arm as the one on the left infiltrated. He is not eating and had nothing at all yesterday. "The nurse called for my breakfast and it never came so I didn't eat." all day. Objective Vitals Vital Signs Date Time Temp Pulse Resp B/P Pulse Ox O2 Delivery O2 Flow Rate FiO2 12/10/16 08:00 98.1 104 18 106/54 91 12/10/16 08:00 93 Nasal Cannula 3.00 12/10/16 04:00 Nasal Cannula 3.00 12/10/16 04:00 98.4 100 20 104/62 91 12/10/16 00:00 99.0 108 20 113/60 93 12/10/16 00:00 Nasal Cannula 3.00 12/09/16 23:39 92 Nasal Cannula 3.00 12/09/16 20:00 Nasal Cannula 3.00 12/09/16 20:00 97.4 110 22 117/73 91 12/09/16 15:37 97.8 113 20 113/84 97 12/09/16 11:46 97.8 109 20 122/78 95 I/O 12/09/16 12/09/16 12/09/16 12/10/16 12/10/16 12/10/16 07:00 15:00 23:00 07:00 15:00 23:00 Intake Total 480 ml Output Total 325 ml Balance 155 ml Intake Oral 480 ml Output Urine Total 325 ml # Bowel Movements 1 Result Diagram: 12/10/1635 12/10/16734 Objective Remarks GENERAL: Elderly male lying in bed in mild respiratory distress. He is alert and less tremulous today. SKIN: Warm and dry. Scattered ecchymoses. HEAD: Atraumatic. Normocephalic. EYES: Pupils equal and round. No scleral icterus. No injection or drainage. ENT: No nasal bleeding or discharge. Mucous membranes pink and moist. NECK: Trachea midline. No JVD. CARDIOVASCULAR: Regular rate and rhythm. No murmurs RESPIRATORY: No accessory muscle use. Lung sounds coarse but moving air well. Non-productive cough. GASTROINTESTINAL: Abdomen soft, non-tender, nondistended. Hepatic and splenic margins not palpable. MUSCULOSKELETAL: Extremities without clubbing, cyanosis, or edema. No obvious deformities. NEUROLOGICAL: Awake and alert. No obvious cranial nerve deficits. Weak. Tremulous. Normal speech. PSYCHIATRIC: Appropriate mood and affect; insight and judgment normal. Procedures EGD/colonoscopy performed on 12/05/16 Urinary Catheter: No Vascular Central Line Catheter: No A/P Assessment and Plan 66-year-old male with a history of alcoholism who presents with lower extremity weakness and symptomatic anemia without evidence of shock. He was admitted for management of weakness likely due to symptomatic anemia and found to have significant blood dyscrasias which warrant work up Discharge Planning Pending results of bone marrow biopsy and hematology recommendations Patient to be discharged to SNF upon clearance from Hematology Problem List: (1) Dyspnea Status: Acute Plan: Improved significantly initially now worsened over the past day. Etiology likely anemia at first. Now CHF. Plan: * Nasal cannula oxygen supplementation as needed, wean to go O2 greater than 92% * Per EMR, patient might have COPD; will add Duonebs when necessary. CXR performed in ED was unremarkable * CXR last night showed possible pneumonia vs fluid overload. will give 40 mg of lasix iv now and follow. Doubt pneumonia as he has no fevers. his WBC is always high and with a high BNP will treat for fluid overload. Will try to avoid unnecessary abx as he has C diff * he has not been on anticoagulation because of GI bleed concerns plus his procedures. PE would be a consideration especially if he worsens. can start heparin prophylaxis as he is done with all procedures and his platelets are normalized now (2) Severe anemia Status: Acute Plan: Anemia is improved at this time, H/H stable at approximately 10/32. Working up to cause of the anemia, appreciate heme recs/mgmt. Concern for possible leukemia versus other form of bone marrow etiology. Bone marrow results pending. Plan: * Status post 2 units of blood transfused on 12/04, and 2 more units on 12/05, leuko -reduced * Isotonic IVF at 100 mL per hour with 40 mEq potassium per liter stopped. he eats little and is low on K and mag * Will monitor fluid status closely, noted to have significant hypokalemia on admission probably from poor po intake * Gastroenterology consult to assess for possible GI acute versus chronic losses , panendoscopy performed with no active bleeding * Hematology consult to assess blood dyscrasia as patient also has significant leukocytosis and thrombocytosis. His reticulocyte count is low. This could possibly be related to intrinsic bone marrow disorder or malignancy; was recommended the patient get bone marrow biopsy in past evaluation but patient declined. He will have this done during this hospitalization. * Peripheral blood smear ordered, probably myelodysplastic cancer * Bone marrow results pending; flow cytometry showing myeloproliferative disorder, pathology result pending (3) Vibrio cholera infection Status: Acute Plan: Continue doxycycline 100mg BID PO, start date 12/07, end date 12/21. Hospital course: Patient is noted to have Vibrio of unknown species on stool study collected . This is possibly contributing to diarrhea. He was started on doxycycline PO on 12/07. Infectious disease was consulted, appreciate recs on further management (4) Clostridium difficile diarrhea Status: Acute Plan: Continue vancomycin PO 125mg PO QID, per infectious disease recommendations. The stop date for this will 01/09/17 per ID Hospital course: * Noted to have stool positive for C difficile on 12/06 specimen and diarrhea. This is after panendoscopy, which was not notable for colitis. Diarrhea noted to be improved on 12/08 * PO Flagyl on 12/07, reported decreased appetite, switched to by PO Vanc on 12/08 (5) Weakness of both lower extremities Status: Acute Plan: Plan: * Corrected anemia as above * Replete electrolytes and monitor levels * PT assessment and continued evaluation, currently recommending rehabilitation with wheeled walker which was ordered * Monitor neuro exam * suspect weakness due to underlying hematologic problems Hospital Course: Patient presented with two-week history of falls related to lower extremity weakness. This is likely related to alcoholism and symptomatic anemia. He also has metabolic disturbances, most notably hypokalemia and hypomagnesemia. Patient is neurologically normal and lower extremities have normal strength on exam. CT of the head was performed in ED and showed no evidence of acute bleed. (6) Leukocytosis Status: Chronic Plan: Plan: * Treat C diff as this could be contributing * Monitor CBC, sx, vitals * Peripheral smear as above * Hematology consult as above Hospital Course: Patient noted to have a significant leukocytosis on admission. This is chronic, with WBC noted to be as high as 33K in late 2016. Patient was evaluated by medical oncology at that time and bone marrow biopsy was recommended which patient declined. There is no evidence of infection. (7) Platelet disorder Status: Chronic Plan: Chronic thrombocytosis, work-up and management as above. (8) Alcoholism Status: Chronic Plan: Chronic alcoholism noted. He claims to drink a pint of rum daily and notes that he has never fully stopped alcohol. Denies history of seizure. Plan: * CIWA protocol * Folate, thiamine, multivitamin by mouth * Seizure precautions per CIWA * Glucose monitoring per CIWA * Managed electrolytes as above * Case management * had 1 mg ativan yesterday for CIWA and may need today. He should be at the end of alcohol withdrawal soon (9) Tobacco abuse Status: Chronic Plan: Chronic. Almost 2 pack per day smoking history. Nicotine high-dose patch given. (10) Fluids/Electrolytes/Nutrition/Prophylaxis Status: Acute Plan: Fluids: po only for now Electrolytes: monitor and replete as needed Nutrition: regular added ensure DVT Prophylaxis: Bilateral SCDs only give likely acute blood loss GI prophylaxis: Protonix Problem Qualifiers (1) Dyspnea: Qualified Code: R06.09 - Dyspnea on exertion (2) Leukocytosis: Qualified Code: D72.829 - Leukocytosis, unspecified type Poppy Vernon MD December 10, 2016 11:16
--- NOTE | 2016-12-10 11:45 | RADRPT ---
EXAM DATE/TIME: 12/10/2016 10:29 [facility] COMPARISON: No previous studies available for comparison. INDICATIONS : Left arm swelling. MEDICAL HISTORY : ETOH. SURGICAL HISTORY : None. ENCOUNTER: Initial ACUITY: 1 day PAIN SCORE: 4/10 LOCATION: Left arm. FINDINGS: Partial occlusive thrombus in the brachial vein. There is spontaneous flow documented in the basilic, cephalic, axillary, and subclavian veins. CONCLUSION: 1. Partially occlusive thrombus in the brachial vein. Juan Miguel Meeks MD on December 10, 2016 at 11:42 Board Certified Radiologist. This report was verified electronically.
[2016-12-10] MEDS ORDERED: RESP: ALBUTEROL 2.5 MG/IPRATROPIUM 0.5 MG NEB (PRN) NEB (12:00)
[2016-12-10] MEDS ORDERED: HEPARIN SODIUM - SQ 10,000 UNITS/ML VIAL SQ SCH (14:00)
--- NOTE | 2016-12-10 14:21 | HHI.PR ---
Addendum to Inpatient Note Addendum Reason: Additional Documentation Additional Information [facility] OFF SERVICE NOTE Patient is a 66-year-old male with history of alcoholism and prior workup for blood dyscrasia who was admitted on 12/04 with complaints of lower extremity weakness and workup findings showing severe anemia, H/H5.5/16.7. Initial workup also showed marked leukocytosis and thrombocytosis. Routine resuscitation efforts were administered in the ED, included isotonic IV fluids and 2 units PRBCs. History of neurology was consulted as patient possibly had a GI bleed. He with pathology was consulted given history of blood dyscrasia not fully worked up. He received 2 additional units of PRBCs on 12/05. Most recent hemoglobin/hematocrit 10.1/32.1. GI performed colonoscopy and EGD on 12/05/16. Results were significant for esophagitis, gastritis, duodenitis. Biopsies are pending. He also was noted to have diverticulosis of the sigmoid colon. No colitis was noted. GI also initiated for workup for diarrhea. He was found to have positive C. difficile toxin and Vibrio. Infectious disease was consulted, recommended starting doxycycline and by mouth vancomycin, to be continued for extended courses with end dates documented elsewhere. He was also placed on probiotics. Hematology consulted. Full workup for anemia with leukocytosis, thrombocytosis was performed in previous hospital stay in March 2016 by hematology, negative for HIV, hemochromatosis, and other potential causes of his symptoms. Bone marrow biopsy was performed on 12/06 and results pending. Flow cytometry showing likely myelodysplastic disorder, nonspecific. He also has a history of poor nutrition. Electrolytes are monitored and notable for hypokalemia, hypomagnesemia and hypophosphatemia which have been repleted as needed. He will require continued surveillance of electrolytes and dietary monitoring. For acute alcohol withdrawal, patient is on CIWA protocol with multivitamins and seizure precautions. He was counseled on alcohol cessation. His LFTs are elevated but his MCV is normal. US Liver 12/06 showing severe hepatic steatosis, cholelithiasis, small minor free peritoneal fluid, pleural effusions, lung base atelectasis. Overnight on 12/09, he was noted to have worsening respiratory symptoms with unremarkable CXR. He responded well to DuoNeb's and these were thereafter ordered PRN. He is also given incentive spirometry and chest PT. Lasix 1 was given due to persistent symptoms on 12/10 and BNP was ordered, noted to be markedly elevated. Lasix was started at 40 mg daily and echocardiogram was ordered. Lastly, he was noted to have a right brachial DVT on 12/10, partially occlusive, on ultrasound ordered due to persistent right arm swelling after infiltrated IV. Therapeutic Lovenox was started at 60 mg subcutaneous BID on afternoon of . CT angiogram ordered 12/10 to rule out PE given patient's recent worsening respiratory status and tachycardia. Pending studies include CT angiogram and 2D echocardiogram at time of signing this note. He will require bridging to oral anticoagulation as well. Maddy Prince MD R1 December 10, 2016 14:21
[2016-12-10 15:05] LABS: BLOOD GAS VENOUS BASE EXCESS -3.6 mmol/L (-2-2); BLOOD GAS VENOUS HCO3 21 mmol/L (22-26); BLOOD GAS VENOUS O2 CONTENT 6.6 Vol % (9.0-17.0); BLOOD GAS VENOUS O2 HGB SAT 41 % (70-76); BLOOD GAS VENOUS PCO2 34 mmHg (44-48); BLOOD GAS VENOUS PO2 27 mmHg (35-40); BLOOD GAS VENOUS pH 7.39 (7.360-7.400); TEMP CORR TO 98.6
[2016-12-10 15:06] LABS: CRITICAL VALUE YES; DRAW SITE IV; LITER FLOW 3 L/M; OXYGEN DEVICE NASAL CANNULA; STAT NO
[2016-12-10] MEDS: ENOXAPARIN SODIUM 60 MG/0.6 ML SYRINGE SQ SCH (17:26)
[2016-12-10] MEDS ORDERED: IOHEXOL 350 MG/ML 10 ML VIAL (for RAD DIAG) IV ONE (17:27)
--- NOTE | 2016-12-10 17:47 | RADRPT ---
EXAM DATE/TIME: 12/10/2016 17:02 [facility] COMPARISON: CT PULMONARY ANGIOGRAM, March 28, 2016, 19:06. INDICATIONS : Evaluate for thrombosis; shortness of breath. IV CONTRAST: 100 cc Omnipaque 350 (iohexol) IV RADIATION DOSE: 21.05 CTDIvol (mGy) MEDICAL HISTORY : Alcohol dependency. SURGICAL HISTORY : None. ENCOUNTER: Initial ACUITY: 1 day PAIN SCALE: 0/10 LOCATION: Bilateral chest TECHNIQUE: Volumetric scanning of the chest was performed using a pulmonary embolism protocol MIP images were re constructed. Using automated exposure control and adjustment of the mA and/or kV according to patien t size, radiation dose was kept as low as reasonably achievable to obtain optimal diagnostic quality images. FINDINGS: There are large bilateral pleural effusions that have progressed from the comparison study. The se occupy approximately one-third to one-half of the right and left hemithorax. There are no central pulmonary emboli. There is no pericardial effusion. There is no axillary or mediastinal adenopathy . The portion of the liver and spleen identified are free of focal defects. CONCLUSION: Large bilateral pleural effusions new from the comparison study with moderate congestive failure. Phoenix Mcknight MD FACR on December 10, 2016 at 17:42 Board Certified Radiologist. This report was verified electronically.
[2016-12-11] VITALS (7 sets, daily range): BP systolic 99–116; BP diastolic 51–70; PULSE 92–99; RESP 16–20; TEMP 97.3–98.5; O2SAT 92–96
[2016-12-11] MEDS: ENOXAPARIN SODIUM 60 MG/0.6 ML SYRINGE SQ SCH ×2 (05:53→17:41)
[2016-12-11 07:06] LABS: HEMATOCRIT 32.4 % (39.0-51.0); MEAN CORPUSCULAR HEMOGLOBIN 28.4 PG (27.0-34.0); MEAN CORPUSCULAR HGB CONC 31.6 % (32.0-36.0); PLATELET COUNT 184 TH/MM3 (150-450); RED CELL DISTRIBUTION WIDTH 19.3 % (11.6-17.2)
[2016-12-11 07:12] LABS: HEMO FLAGS AUTO DIFF
[2016-12-11 07:15] LABS: INTERNATIONAL NORMALIZED RATIO 1.3 RATIO; PROTHROMBIN TIME - PATIENT 14.7 SEC (9.8-11.6)
[2016-12-11 07:36] LABS: ALT (GPT) 23 U/L (12-78); ANION GAP 10 MEQ/L (5-15); AST (GOT) 32 U/L (15-37); BICARBONATE 24.3 MEQ/L (21.0-32.0); BLOOD UREA NITROGEN 16 MG/DL (7-18); CHLORIDE 110 MEQ/L (98-107); GLOMERULAR FILTRATION RATE 81 ML/MIN (>89); MAGNESIUM 1.5 MG/DL (1.5-2.5); POTASSIUM 3.8 MEQ/L (3.5-5.1); SODIUM (NA) 144 MEQ/L (136-145)
[2016-12-11 07:38] LABS: ALKALINE PHOSPHATASE 93 U/L (45-117); TOTAL BILIRUBIN ADULT 1.1 MG/DL (0.2-1.0)
[2016-12-11 07:53] LABS: ACANTHOCYTES OCC (NORMAL); BANDS 12 % (0-6); BASOPHILS 7 % (0-2); EOSINOPHILS 1 % (0-4); METAMYELOCYTES 2 % (0-1); MYELOCYTES 1 % (0-0); NEUTROPHIL # MANUAL DIFF 20.9 TH/MM3 (1.8-7.7); PLATELET ESTIMATE SMEAR NORMAL (NORMAL); PLATELET MORPHOLOGY NORMAL (NORMAL); POLYS (SEG NEUTROPHILS) 72 % (16-70); SCAN/DIFF FINAL DIFF MANUAL; WBC DIFF SAMPLE 100
[2016-12-11] MEDS: REMOVE OLD PATCH T-DERMAL SCH (09:00)
[2016-12-11] MEDS: FUROSEMIDE 40 MG/4 ML VIAL IV PUSH SCH (09:22)
[2016-12-11] MEDS: VANCOMYCIN 500 MG VIAL (FOR ORAL USE ONLY) PO SCH ×4 (09:22→22:56)
[2016-12-11] MEDS: NICOTINE 21 MG/24 HR PATCH T-DERMAL SCH (09:23)
[2016-12-11] MEDS: THIAMINE HCL 100 MG TAB PO SCH (09:24)
[2016-12-11] MEDS: LACTOBACILLUS ACIDOPHILUS TAB PO SCH ×3 (09:24→17:44)
[2016-12-11] MEDS: PANTOPRAZOLE SOD 20 MG DELAYED RELEASE TAB PO SCH (09:24)
[2016-12-11] MEDS: SODIUM CHLORIDE 0.9% FLUSH 10 ML FLUSH IV FLUSH SCH ×2 (09:24→21:00)
[2016-12-11] MEDS: DOXYCYCLINE HYCLATE 100 MG TAB PO SCH ×2 (09:29→22:56)
--- NOTE | 2016-12-11 10:16 | HHI.FPPN ---
Subjective Remarks Patient seen and examined this morning. Patient appears comfortable, denies any pain or new area of swelling. Denies any acute respiratory issues. Patient remains afebrile, vitals are stable. (Hieu Montague MD R1) Objective Vitals Vital Signs Date Time Temp Pulse Resp B/P Pulse Ox O2 Delivery O2 Flow Rate FiO2 12/11/16 08:07 92 Nasal Cannula 4.00 12/11/16 08:00 98.5 99 18 104/55 93 12/11/16 04:00 97.8 97 20 116/70 92 12/11/16 00:00 97.9 92 18 110/58 92 12/10/16 22:22 99.1 101 18 117/59 93 12/10/16 20:00 Nasal Cannula 4.00 12/10/16 19:18 92 Nasal Cannula 4.00 12/10/16 16:00 97.6 98 18 96/51 92 12/10/16 12:00 98.8 103 18 99/55 91 I/O 12/10/16 12/10/16 12/10/16 12/11/16 12/11/16 12/11/16 07:00 15:00 23:00 07:00 15:00 23:00 Intake Total 1440 ml Output Total 675 ml Balance 765 ml Intake Oral 1440 ml Output Urine Total 675 ml # Voids 2 # Bowel Movements 4 (Hieu Montague MD R1) Result Diagram: 12/11/16 0607 12/11/16 0607 Objective Remarks GENERAL: Elderly male alert lying in bed in no apparent distress. SKIN: Warm and dry. Scattered ecchymoses. HEAD: Atraumatic. Normocephalic. EYES: EOMI. No scleral icterus. No injection or drainage. ENT: No nasal bleeding or discharge. Mucous membranes pink and moist. NECK: Trachea midline. No JVD. CARDIOVASCULAR: Regular rate and rhythm. No murmurs RESPIRATORY: No accessory muscle use. Lung sounds coarse but moving air well. GASTROINTESTINAL: Abdomen soft, non-tender, nondistended. Hepatic and splenic margins not palpable. MUSCULOSKELETAL: Extremities without clubbing, cyanosis, or edema. No obvious deformities. NEUROLOGICAL: Awake and alert. No obvious cranial nerve deficits. Weak. Normal speech. PSYCHIATRIC: Appropriate mood and affect; insight and judgment normal. Procedures EGD/colonoscopy performed on 12/05/16 (Hieu Montague MD R1) A/P Assessment and Plan 66-year-old male with a history of alcoholism who presented with lower extremity weakness and symptomatic anemia without evidence of shock. He was admitted for management of weakness likely due to symptomatic anemia and found to have significant blood dyscrasias which warranted work up Discharge Planning Pending results of bone marrow biopsy and hematology recommendations Patient to be discharged to SNF upon clearance from Hematology (Hieu Montague MD R1) Attending Attestation Patient seen and examined. Case reviewed and discussed with the resident team. Agree with plan of care as discussed with me and documented in the resident note. (Poppy Vernon MD) Problem List: (1) Dyspnea Status: Acute Plan: Patient is more comfortable today and appears to be improved. Etiology likely anemia at first. Now CHF. Plan: * Nasal cannula oxygen supplementation as needed, wean to maintain O2 sats greater than 92% * Per EMR, patient might have COPD; will add Duonebs when necessary. CXR performed in ED was unremarkable * CXR 12/09 showed possible pneumonia vs fluid overload. Continue Lasic 40 mg IV daily. Unlikely pneumonia as patient has been afebrile. His WBC is elevated at baseline and as his BNP is markedly elevated will treat for fluid overload. Will try to avoid unnecessary abx as he has C diff * CTA showing large bilateral pleural effusions new from previous comparison study, no PE * Continue therapeutic Lovenox as below for left brachial vein thrombus (2) Severe anemia Status: Acute Plan: Anemia is improved at this time, H/H stable at 10.2/32.4. Concern for possible leukemia versus other form of bone marrow etiology. Bone marrow results pending. Plan: * Status post 2 units of blood transfused on 12/04, and 2 more units on 12/05, leuko -reduced * Isotonic IVF at 100 mL/hour with 40 mEq potassium per liter stopped * Will monitor fluid status closely, noted to have significant hypokalemia on admission probably from poor po intake * Gastroenterology consult to assess for possible GI acute versus chronic losses , panendoscopy performed with no active bleeding * Hematology consult to assess blood dyscrasia as patient also has significant leukocytosis and thrombocytosis. His reticulocyte count is low. This could possibly be related to intrinsic bone marrow disorder or malignancy; was recommended the patient get bone marrow biopsy in past evaluation but patient declined. He will have this done during this hospitalization. * Peripheral blood smear ordered, still pending * Bone marrow results pending; flow cytometry showing myeloproliferative disorder, pathology result pending (3) Brachial vein thrombus, left Status: Acute Plan: Upper extremity US showing partially occlusive thrombus in left brachial vein Patient was started on therapeutic Lovenox on 12/10 (4) Vibrio cholera infection Status: Acute Plan: Continue doxycycline 100mg BID PO, start date 12/07, end date 12/21. Hospital course: Patient is noted to have Vibrio of unknown species on stool study collected . This is possibly contributing to diarrhea. He was started on doxycycline PO on 12/07. Infectious disease was consulted, appreciate recs on further management (5) Clostridium difficile diarrhea Status: Acute Plan: Continue vancomycin PO 125mg PO QID, per infectious disease recommendations. The stop date for this will 01/09/17 per ID Hospital course: * Noted to have stool positive for C difficile on 12/06 specimen and diarrhea. This is after panendoscopy, which was not notable for colitis. Diarrhea noted to be improved on 12/08 * PO Flagyl on 12/07, reported decreased appetite, switched to by PO Vanc on 12/08 (6) Weakness of both lower extremities Status: Acute Plan: Plan: * Corrected anemia as above * Replete electrolytes and monitor levels * PT assessment and continued evaluation, currently recommending rehabilitation with wheeled walker which was ordered * Monitor neuro exam * suspect weakness due to underlying hematologic problems Hospital Course: Patient presented with two-week history of falls related to lower extremity weakness. This is likely related to alcoholism and symptomatic anemia. He also has metabolic disturbances, most notably hypokalemia and hypomagnesemia. Patient is neurologically normal and lower extremities have normal strength on exam. CT of the head was performed in ED and showed no evidence of acute bleed. (7) Leukocytosis Status: Chronic Plan: Plan: * Treat C diff as this could be contributing * Monitor CBC, sx, vitals * Peripheral smear as above * Hematology consult as above Hospital Course: Patient noted to have a significant leukocytosis on admission. This is chronic, with WBC noted to be as high as 33K in late 2016. Patient was evaluated by medical oncology at that time and bone marrow biopsy was recommended which patient declined. There is no evidence of infection. (8) Platelet disorder Status: Resolved Plan: Chronic thrombocytosis, work-up and management as above. (9) Alcoholism Status: Chronic Plan: Chronic alcoholism noted. He claims to drink a pint of rum daily and notes that he has never fully stopped alcohol. Denies history of seizure. Plan: * [facility] protocol * Folate, thiamine, multivitamin by mouth * Seizure precautions per CIWA * Glucose monitoring per [facility] * Managed electrolytes as above * Case management consult (10) Tobacco abuse Status: Chronic Plan: Chronic. Almost 2 packs per day smoking history Nicotine high-dose patch (11) Fluids/Electrolytes/Nutrition/Prophylaxis Status: Acute Plan: Fluids: po only for now Electrolytes: monitor and replete as needed Nutrition: regular added ensure DVT Prophylaxis: Patient on therapeutic Lovenox GI prophylaxis: Protonix (Hieu Montague MD R1) Problem Qualifiers (1) Dyspnea: Qualified Code: R06.09 - Dyspnea on exertion (2) Leukocytosis: Qualified Code: D72.829 - Leukocytosis, unspecified type Hieu Montague MD R1 December 11, 2016 10:16 Poppy Vernon MD December 13, 2016 12:31
--- NOTE | 2016-12-11 13:28 | EC ---
Study Study Date:12/11/2016 STUDY CONCLUSIONS SUMMARY - Left ventricle: The cavity size was normal. Wall thickness was normal. Systolic function was mildly to moderately reduced. The estimated ejection fraction was in the range of 40% to 45%. Hypokinesis of the basal myocardium. - Mitral valve: Mild regurgitation. - Tricuspid valve: Mild regurgitation. If LV function is below 40, please consider prescribing an ACEI or ARB or document rationale for non-use. PROCEDURE DATA STUDY STATUS: Elective. Procedure: Transthoracic echocardiography. Image quality was good. Scanning was performed from the parasternal, apical, and subcostal acoustic windows. Study completion: The patient tolerated the procedure well. Transthoracic echocardiography. M-mode, complete 2D, complete spectral Doppler, and color Doppler. Patient status: Inpatient. CARDIAC ANATOMY LEFT VENTRICLE: The cavity size was normal. Wall thickness was normal. Systolic function was mildly to moderately reduced. The estimated ejection fraction was in the range of 40% to 45%. Regional wall motion abnormalities: Hypokinesis of the basal myocardium. AORTIC VALVE: Trileaflet; normal thickness leaflets. Doppler: Transvalvular velocity was within the normal range. There was no stenosis. No regurgitation. AORTA: Aortic root: The aortic root was normal in size. MITRAL VALVE: Structurally normal valve. Doppler: Transvalvular velocity was within the normal range. There was no evidence for stenosis. Mild regurgitation. LEFT ATRIUM: The atrium was normal in size. RIGHT VENTRICLE: The cavity size was normal. Wall thickness was normal. PULMONIC VALVE: Doppler: Transvalvular velocity was within the normal range. There was no evidence for stenosis. No regurgitation. TRICUSPID VALVE: Structurally normal valve. Doppler: Transvalvular velocity was within the normal range. Mild regurgitation. PULMONARY ARTERY: The main pulmonary artery was normal-sized. Systolic pressure was within the normal range. RIGHT ATRIUM: The atrium was normal in size. PERICARDIUM: There was no pericardial effusion. SYSTEMIC VEINS: Inferior vena cava: The vessel was normal in size. BASIC MEASUREMENTS ADULT NORMAL Left ventricle LV internal dimension, ED, chordal level, *34.6 mm 43-52 PLAX LV internal dimension, ES, chordal level, 32.3 mm 23-38 PLAX Fractional shortening, chordal level, PLAX *7 % >29 LV posterior wall thickness, ED 9.73 mm IVS/LVPW ratio, ED 1.21 <1.3 Ventricular septum Septal thickness, ED 11.8 mm Aortic valve Leaflet separation 17 mm 15-26 Right ventricle RV internal dimension, ED, PLAX 21.1 mm 19-38 BASIC MEASUREMENTS ADULT NORMAL Aortic valve Leaflet separation 17 mm 15-26 Aorta Root diameter, ED 28 mm 20-37 Left atrium Anterior-posterior dimension, ES 29 mm 19-40 LA/aortic root ratio 1.04 LEGEND: Mean values are shown as u=mean value. Asterisk (*) acevedo values outside specified normal range. Prepared and signed by Richard Dalton [id number]
--- NOTE | 2016-12-11 13:32 | HHI.GIFU ---
GI Follow-up Note Consult Follow-up Subjective: Patient laying in bed comfortably, no new complaints. Reports diarrhea is improving. No abdominal pain. No fever. Objective: PHYSICAL EXAMINATION: Vitals signs stable No fever HEENT: Pupils round and reactive to light; normocephalic; atraumatic; no jaundice. Throat is clear. NECK: Neck is supple, no JVD, no lymphadenopathy. CHEST: Chest is clear to auscultation and percussion. CARDIAC: Regular rate and rhythm with no murmur gallop or rubs. ABDOMEN: Soft, nondistended, nontender; no hepatosplenomegaly; bowel sounds are present in all four quadrants. EXTREMITIES: No clubbing, cyanosis, or edema. SKIN: Normal; no rash; no jaundice. PENCIL MAKER: No focal deficits; alert and oriented times three. Available Data (labs, X- Rays, Procedues) : CBC & BMP Diagram 12/11/16 06:07 ASSESSMENT/PLAN: Continue to follow with you. It was a pleasure seeing Pastor Uribe. Thank you for this consult. Entered by: Spencer Diaz MD December 11, 2016 13:32
--- NOTE | 2016-12-11 14:51 | EKG ---
Date Performed: 12/10/2016 Time Performed: 13:52:32 PTAGE: 66 years EKG: SINUS TACHYCARDIA WITH SHORT IL INTERVAL NONSPECIFIC ST & T-WAVE ABNORMALITY ABNORMAL RHYTH M ECG Since prior tracing, sinus rate has increased. Previously seen ST depression are now more promi nent. PREVIOUS TRACING : 12/04/2016 11.08 DOCTOR: Lit Grimes Interpretating Date/Time 12/11/2016 14:50:26
--- NOTE | 2016-12-11 22:13 | PD.ONC.PN ---
Subjective Subjective Remarks awake and alert/comfortable no fever or bleeding. f/u for anemia/thrombocytosis flow cytometry result non-specific. possible early myeloproliferative d/o Objective Data Date Time Temp Pulse Resp B/P Pulse Ox O2 Delivery O2 Flow Rate FiO2 12/11/16 20:37 97.3 96 16 99/54 94 12/11/16 16:00 98.0 97 20 102/51 95 12/11/16 12:00 98.5 95 20 102/53 96 12/11/16 09:30 93 Nasal Cannula 4.00 12/11/16 08:07 92 Nasal Cannula 4.00 12/11/16 08:00 98.5 99 18 104/55 93 12/11/16 04:00 97.8 97 20 116/70 92 12/11/16 00:00 97.9 92 18 110/58 92 12/10/16 22:22 99.1 101 18 117/59 93 12/11/16 12/11/16 12/11/16 07:00 15:00 23:00 Intake Total 240 ml Output Total 1650 ml Balance -1410 ml Result Diagram: 12/11/16 0607 12/11/16 0607 Laboratory Results Laboratory Tests Test 12/11/16 06:07 White Blood Count 24.0 TH/MM3 Red Blood Count 3.60 MIL/MM3 Hemoglobin 10.2 GM/DL Hematocrit 32.4 % Mean Corpuscular Volume 90.0 FL Mean Corpuscular Hemoglobin 28.4 PG Mean Corpuscular Hemoglobin 31.6 % Concent Red Cell Distribution Width 19.3 % Platelet Count 184 TH/MM3 Mean Platelet Volume 11.8 FL Neutrophils (%) (Auto) % Lymphocytes (%) (Auto) % Monocytes (%) (Auto) % Eosinophils (%) (Auto) % Basophils (%) (Auto) % Neutrophils # (Auto) TH/MM3 Lymphocytes # (Auto) TH/MM3 Monocytes # (Auto) TH/MM3 Eosinophils # (Auto) TH/MM3 Basophils # (Auto) TH/MM3 CBC Comment AUTO DIFF Differential Total Cells 100 Counted Neutrophils % (Manual) 72 % Band Neutrophils % 12 % Lymphocytes % 2 % Monocytes % 3 % Eosinophils % 1 % Basophils % 7 % Neutrophils # (Manual) 20.9 TH/MM3 Metamyelocytes 2 % Myelocytes 1 % Differential Comment FINAL DIFF MANUAL Platelet Estimate NORMAL Platelet Morphology Comment NORMAL Acanthocytes OCC Prothrombin Time 14.7 SEC Prothromb Time International 1.3 RATIO Ratio Sodium Level 144 MEQ/L Potassium Level 3.8 MEQ/L Chloride Level 110 MEQ/L Carbon Dioxide Level 24.3 MEQ/L Anion Gap 10 MEQ/L Blood Urea Nitrogen 16 MG/DL Creatinine 0.93 MG/DL Estimat Glomerular Filtration 81 ML/MIN Rate Random Glucose 71 MG/DL Calcium Level 8.1 MG/DL Magnesium Level 1.5 MG/DL Total Bilirubin 1.1 MG/DL Aspartate Amino Transf 32 U/L (AST/SGOT) Alanine Aminotransferase 23 U/L (ALT/SGPT) Alkaline Phosphatase 93 U/L Total Protein 4.8 GM/DL Albumin 1.9 GM/DL Administered Medications Medications (Trade) Dose Ordered Sig/Irma Route PRN Reason Start Time Stop Time Status Last Admin Dose Admin Sodium Chloride (NS Flush) 2 ml BID IV FLUSH 12/04/16 21:00 12/11/16 09:24 Thiamine HCl (Vitamin B1) 100 mg DAILY PO 12/05/16 09:00 12/11/16 09:24 Lorazepam (Ativan Inj) 1 mg Q4H PRN IV PUSH CIWA 8 - 10 12/04/16 13:30 12/09/16 11:26 Nicotine (Habitrol 21 Mg Patch.24 Hr) 1 patch DAILY T-DERMAL 12/04/16 14:00 12/11/16 09:23 Miscellaneous Information 1 DAILY T-DERMAL 12/05/16 09:00 12/11/16 09:00 Pantoprazole Sodium (Protonix) 20 mg DAILY PO 12/06/16 10:30 12/11/16 09:24 Vancomycin HCl (VANCOMYCIN for oral use only) 125 mg QID PO 12/08/16 21:00 01/09/17 20:59 12/11/16 17:41 Doxycycline Hyclate (Vibratab) 100 mg BID PO 12/09/16 21:00 12/11/16 09:29 Lactobacillus Acidophilus (Lactinex) 1 tab TID PO 12/10/16 09:00 12/11/16 17:44 Furosemide (Lasix Inj) 40 mg DAILY IV PUSH 12/10/16 11:00 12/11/16 09:22 Enoxaparin Sodium (Lovenox Inj) 60 mg Q12H SQ 5/14/17 18:00 12/11/16 17:41 Objective Remarks GENERAL: nad SKIN: Warm and dry. NECK: Supple, trachea midline. No JVD or lymphadenopathy. LYMPHATIC: No adenopathy. CARDIOVASCULAR: Regular rate and rhythm without murmurs. RESPIRATORY: Breath sounds equal bilaterally. No accessory muscle use. GASTROINTESTINAL: Abdomen soft, non-tender, nondistended. EXTREMITIES: No cyanosis, or edema. Assessment/Plan Problem List: (1) Thrombocytosis Status: Acute Plan: --BMB done on 12/06 and pathology is pending --likely d/t myeloproliferative disorder (2) Leukocytosis Status: Chronic Plan: -- BMB done on 12/06, pathology pending --likely due to MPD (3) Severe anemia Status: Acute Plan: -- GI following -- s/p Endoscopy that revealed esophagitis. Assessment 66 y/o with Leukocytosis, severe anemia and thrombocytosis. Plan 1. monitor CBC. counts are stable 2. Final pathology from bone marrow biopsy pending Problem Qualifiers (1) Leukocytosis: Qualified Code: D72.829 - Leukocytosis, unspecified type Howard Muhammad MD December 11, 2016 22:13
[2016-12-12] VITALS (8 sets, daily range): BP systolic 103–126; BP diastolic 55–58; PULSE 87–95; RESP 18–20; TEMP 97.5–98.4; O2SAT 92–96
[2016-12-12] MEDS: ENOXAPARIN SODIUM 60 MG/0.6 ML SYRINGE SQ SCH ×2 (05:23→17:15)
[2016-12-12 07:39] LABS: AUTOMATED NEUTROPHIL # 22.5 TH/MM3 (1.8-7.7); BASOPHIL # 0.3 TH/MM3 (0-0.2); BASOPHIL % 1.2 % (0.0-2.0); EOSINOPHIL # 0.3 TH/MM3 (0-0.4); EOSINOPHIL % 1.1 % (0.0-4.0); HEMATOCRIT 31.4 % (39.0-51.0); LYMPH % 3.1 % (9.0-44.0); LYMPHOCYTE # 0.8 TH/MM3 (1.0-4.8); MEAN CELL VOLUME 89.3 FL (80.0-100.0); MEAN CORPUSCULAR HEMOGLOBIN 29.2 PG (27.0-34.0); MEAN CORPUSCULAR HGB CONC 32.7 % (32.0-36.0); MONO % 2.9 % (0.0-8.0); NEUT % 91.7 % (16.0-70.0); PLATELET COUNT 225 TH/MM3 (150-450); RED BLOOD COUNT 3.52 MIL/MM3 (4.50-5.90); RED CELL DISTRIBUTION WIDTH 19.5 % (11.6-17.2); WHITE BLOOD COUNT 24.6 TH/MM3 (4.0-11.0)
[2016-12-12 07:50] LABS: HEMO FLAGS AUTO DIFF
[2016-12-12 08:08] LABS: ALKALINE PHOSPHATASE 101 U/L (45-117); ALT (GPT) 21 U/L (12-78); ANION GAP 9 MEQ/L (5-15); AST (GOT) 29 U/L (15-37); BICARBONATE 28.7 MEQ/L (21.0-32.0); BLOOD UREA NITROGEN 14 MG/DL (7-18); CHLORIDE 103 MEQ/L (98-107); GLOMERULAR FILTRATION RATE 88 ML/MIN (>89); POTASSIUM 3.3 MEQ/L (3.5-5.1); SODIUM (NA) 141 MEQ/L (136-145); TOTAL BILIRUBIN ADULT 1.1 MG/DL (0.2-1.0)
[2016-12-12 08:39] LABS: BANDS 17 % (0-6); BASOPHILS 1 % (0-2); EOSINOPHILS 1 % (0-4); METAMYELOCYTES 3 % (0-1); MYELOCYTES 1 % (0-0); NEUTROPHIL # MANUAL DIFF 22.4 TH/MM3 (1.8-7.7); PLATELET ESTIMATE SMEAR NORMAL (NORMAL); POLYS (SEG NEUTROPHILS) 70 % (16-70); SCAN/DIFF FINAL DIFF MANUAL; WBC DIFF SAMPLE 100
[2016-12-12 08:40] LABS: ACANTHOCYTES OCC (NORMAL); PLATELET MORPHOLOGY ENLARGED (NORMAL)
--- NOTE | 2016-12-12 08:44 | HHI.FPPN ---
Subjective Remarks Patient seen and examined this AM. No acute events overnight. Afebrile, vitals stable, remains on NC satting >92%. Patient able to be off O2 while in bed and able to transfer without SOB. Patient states his stools are more formed, normal consistency, endorses 2 stools over past day. Denies fevers, chills, chest pain , SOB, pain elsewhere. He overall still feels weak but states he feels somewhat stronger than yesterday. He is eager to get to [facility] and continue rehab. (Hieu Montague MD R1) Objective Vitals Vital Signs Date Time Temp Pulse Resp B/P Pulse Ox O2 Delivery O2 Flow Rate FiO2 12/12/16 04:00 98.2 87 18 115/58 93 12/12/16 00:23 98.4 95 18 104/56 94 12/11/16 22:00 Nasal Cannula 4.00 12/11/16 20:37 97.3 96 16 99/54 94 12/11/16 16:00 98.0 97 20 102/51 95 12/11/16 12:00 98.5 95 20 102/53 96 12/11/16 09:30 93 Nasal Cannula 4.00 I/O 12/11/16 12/11/16 12/11/16 12/12/16 12/12/16 12/12/16 07:00 15:00 23:00 07:00 15:00 23:00 Intake Total 240 ml Output Total 1650 ml 50 ml Balance -1410 ml -50 ml Intake Oral 240 ml IV Total 0 ml Output Urine Total 1650 ml 50 ml # Voids 0 # Bowel Movements 1 0 0 (Hieu Montague MD R1) Result Diagram: 12/12/16 0700 12/12/16 0700 Objective Remarks GENERAL: Elderly male alert lying in bed in no apparent distress. SKIN: Warm and dry. Scattered ecchymoses. HEAD: Atraumatic. Normocephalic. EYES: EOMI. No scleral icterus. No injection or drainage. ENT: No nasal bleeding or discharge. Mucous membranes pink and moist. NECK: Trachea midline. No JVD. CARDIOVASCULAR: Regular rate and rhythm. No murmurs RESPIRATORY: No accessory muscle use. Lung sounds coarse but moving air well. GASTROINTESTINAL: Abdomen soft, non-tender, nondistended. Hepatic and splenic margins not palpable. MUSCULOSKELETAL: Extremities without clubbing, cyanosis, or edema. No obvious deformities. NEUROLOGICAL: Awake and alert. No obvious cranial nerve deficits. Weak. Normal speech. PSYCHIATRIC: Appropriate mood and affect; insight and judgment normal. Procedures EGD/colonoscopy performed on 12/05/16 (Hieu Montague MD R1) A/P Assessment and Plan 66-year-old pleasant male with a history of alcoholism who presented with lower extremity weakness and symptomatic anemia without evidence of shock. He was admitted for management of weakness likely due to symptomatic anemia and found to have significant blood dyscrasias which warranted work up Discharge Planning Pending results of bone marrow biopsy and hematology recommendations Patient to be discharged to [facility] upon clearance from Hematology ( Hieu Montague MD R1) Attending Attestation Patient seen and examined. Case reviewed and discussed with the resident team. Agree with plan of care as discussed with me and documented in the resident note. (Poppy Vernon MD) Problem List: (1) Dyspnea Status: Acute Plan: Patient is more comfortable today and appears to be improved. Etiology likely anemia at first. Now CHF. Plan: * Nasal cannula oxygen supplementation as needed, wean to maintain O2 sats greater than 92% * Per EMR, patient might have COPD; will add Duonebs when necessary. CXR performed in ED was unremarkable * CXR 12/09 showed possible pneumonia vs fluid overload. IV Lasix transitioned to PO 40 mg daily. Unlikely pneumonia as patient has been afebrile. His WBC is elevated at baseline and as his BNP is markedly elevated will treat for fluid overload. Will try to avoid unnecessary abx as he has C diff * CTA showing large bilateral pleural effusions new from previous comparison study, no PE * Continue therapeutic Lovenox as below for left brachial vein thrombus (2) Severe anemia Status: Acute Plan: Anemia is improved at this time, Hgb stable at 10.3. Concern for possible leukemia versus other form of bone marrow etiology. Bone marrow results pending. Plan: * Status post 2 units of blood transfused on 12/04, and 2 more units on 12/05, leuko -reduced * Isotonic IVF at 100 mL/hour with 40 mEq potassium per liter stopped * Will monitor fluid status closely, noted to have significant hypokalemia on admission probably from poor po intake * Gastroenterology consult to assess for possible GI acute versus chronic losses , panendoscopy performed with no active bleeding * Hematology consult to assess blood dyscrasia as patient also has significant leukocytosis and thrombocytosis. His reticulocyte count is low. This could possibly be related to intrinsic bone marrow disorder or malignancy; was recommended the patient get bone marrow biopsy in past evaluation but patient declined. He will have this done during this hospitalization. * Peripheral blood smear ordered, still pending * Bone marrow results pending; flow cytometry showing myeloproliferative disorder, pathology result pending (3) Brachial vein thrombus, left Status: Acute Plan: Upper extremity US showing partially occlusive thrombus in left brachial vein Patient was started on therapeutic Lovenox on 12/10 (4) Vibrio cholera infection Status: Acute Plan: Continue doxycycline 100mg BID PO, start date 12/07, end date 12/21. Hospital course: Patient is noted to have Vibrio of unknown species on stool study collected . This is possibly contributing to diarrhea. He was started on doxycycline PO on 12/07. Infectious disease was consulted, appreciate recs on further management (5) Clostridium difficile diarrhea Status: Acute Plan: Continue vancomycin PO 125mg PO QID, per infectious disease recommendations. The stop date for this will 01/09/17 per ID Hospital course: * Noted to have stool positive for C difficile on 12/06 specimen and diarrhea. This is after panendoscopy, which was not notable for colitis. Diarrhea noted to be improved on 12/08 * PO Flagyl on 12/07, reported decreased appetite, switched to by PO Vanc on 12/08 (6) Weakness of both lower extremities Status: Acute Plan: Plan: * Corrected anemia as above * Replete electrolytes and monitor levels * PT assessment and continued evaluation, currently recommending rehabilitation with wheeled walker which was ordered * Monitor neuro exam * suspect weakness due to underlying hematologic problems Hospital Course: Patient presented with two-week history of falls related to lower extremity weakness. This is likely related to alcoholism and symptomatic anemia. He also has metabolic disturbances, most notably hypokalemia and hypomagnesemia. Patient is neurologically normal and lower extremities have normal strength on exam. CT of the head was performed in ED and showed no evidence of acute bleed. (7) Leukocytosis Status: Chronic Plan: Plan: * Treat C diff as this could be contributing * Monitor CBC, sx, vitals * Peripheral smear as above * Hematology consult as above Hospital Course: Patient noted to have a significant leukocytosis on admission. This is chronic, with WBC noted to be as high as 33K in late 2016. Patient was evaluated by medical oncology at that time and bone marrow biopsy was recommended which patient declined. There is no evidence of infection. (8) Platelet disorder Status: Resolved Plan: Chronic thrombocytosis, work-up and management as above. (9) Alcoholism Status: Chronic Plan: Chronic alcoholism noted. He claims to drink a pint of rum daily and notes that he has never fully stopped alcohol intake. Denies history of seizure. Plan: * [facility] protocol * Folate, thiamine, multivitamin by mouth * Seizure precautions per [facility] * Glucose monitoring per [facility] * Managed electrolytes as above * Case management consult (10) Tobacco abuse Status: Chronic Plan: Chronic. Almost 2 packs per day smoking history Nicotine high-dose patch (11) Fluids/Electrolytes/Nutrition/Prophylaxis Status: Acute Plan: Fluids: po Electrolytes: monitor and replete as needed Nutrition: regular diet with added ensure DVT Prophylaxis: Patient on therapeutic Lovenox GI prophylaxis: Protonix (Hieu Montague MD R1) Problem Qualifiers (1) Dyspnea: Qualified Code: R06.09 - Dyspnea on exertion (2) Leukocytosis: Qualified Code: D72.829 - Leukocytosis, unspecified type Hieu Montague MD R1 December 12, 2016 08:44 Poppy Vernon MD December 13, 2016 12:32
[2016-12-12] MEDS ORDERED: POTASSIUM CHLORIDE 10 MEQ CONTROLLED RELEASE TAB PO ONE (08:45)
[2016-12-12] MEDS: REMOVE OLD PATCH T-DERMAL SCH (09:00)
[2016-12-12] MEDS: SODIUM CHLORIDE 0.9% FLUSH 10 ML FLUSH IV FLUSH SCH ×2 (09:00→21:00)
[2016-12-12] MEDS: LACTOBACILLUS ACIDOPHILUS TAB PO SCH ×3 (09:53→17:15)
[2016-12-12] MEDS: NICOTINE 21 MG/24 HR PATCH T-DERMAL SCH (09:53)
[2016-12-12] MEDS: PANTOPRAZOLE SOD 20 MG DELAYED RELEASE TAB PO SCH (09:53)
[2016-12-12] MEDS: THIAMINE HCL 100 MG TAB PO SCH (09:53)
[2016-12-12] MEDS: VANCOMYCIN 500 MG VIAL (FOR ORAL USE ONLY) PO SCH ×4 (09:54→22:02)
[2016-12-12] MEDS: FUROSEMIDE 40 MG/4 ML VIAL IV PUSH SCH (09:54)
[2016-12-12] MEDS: DOXYCYCLINE HYCLATE 100 MG TAB PO SCH ×2 (10:00→22:02)
--- NOTE | 2016-12-12 15:48 | HHI.GIFU ---
Subjective Remarks Up in chair. No n/v. No abdominal pain. Tolerating diet, had 1/2 a cheeseburger and a milkshake for lunch today. No obvious bleeding. Objective Vitals I&O Vital Signs Date Time Temp Pulse Resp B/P Pulse Ox O2 Delivery O2 Flow Rate FiO2 12/12/16 10:50 Nasal Cannula 4.00 12/12/16 10:41 92 Nasal Cannula 4.00 12/12/16 08:00 98.0 87 20 126/56 92 12/12/16 04:00 98.2 87 18 115/58 93 12/12/16 00:23 98.4 95 18 104/56 94 12/11/16 22:00 Nasal Cannula 4.00 12/11/16 20:37 97.3 96 16 99/54 94 12/11/16 16:00 98.0 97 20 102/51 95 I/O 12/11/16 12/11/16 12/11/16 12/12/16 12/12/16 12/12/16 07:00 15:00 23:00 07:00 15:00 23:00 Intake Total 240 ml Output Total 1650 ml 50 ml Balance -1410 ml -50 ml Intake Oral 240 ml IV Total 0 ml Output Urine Total 1650 ml 50 ml # Voids 0 # Bowel Movements 1 0 0 Laboratory Laboratory Tests Test 12/12/16 07:00 White Blood Count 24.6 Red Blood Count 3.52 Hemoglobin 10.3 Hematocrit 31.4 Mean Corpuscular Volume 89.3 Mean Corpuscular Hemoglobin 29.2 Mean Corpuscular Hemoglobin 32.7 Concent Red Cell Distribution Width 19.5 Platelet Count 225 Mean Platelet Volume 12.4 Neutrophils (%) (Auto) 91.7 Lymphocytes (%) (Auto) 3.1 Monocytes (%) (Auto) 2.9 Eosinophils (%) (Auto) 1.1 Basophils (%) (Auto) 1.2 Neutrophils # (Auto) 22.5 Lymphocytes # (Auto) 0.8 Monocytes # (Auto) 0.7 Eosinophils # (Auto) 0.3 Basophils # (Auto) 0.3 CBC Comment AUTO DIFF Differential Total Cells 100 Counted Neutrophils % (Manual) 70 Band Neutrophils % 17 Lymphocytes % 3 Monocytes % 4 Eosinophils % 1 Basophils % 1 Neutrophils # (Manual) 22.4 Metamyelocytes 3 Myelocytes 1 Differential Comment FINAL DIFF MANUAL Platelet Estimate NORMAL Platelet Morphology Comment ENLARGED Acanthocytes OCC Sodium Level 141 Potassium Level 3.3 Chloride Level 103 Carbon Dioxide Level 28.7 Anion Gap 9 Blood Urea Nitrogen 14 Creatinine 0.87 Estimat Glomerular Filtration 88 Rate Random Glucose 83 Calcium Level 7.6 Magnesium Level 1.3 Total Bilirubin 1.1 Aspartate Amino Transf 29 (AST/SGOT) Alanine Aminotransferase 21 (ALT/SGPT) Alkaline Phosphatase 101 Total Protein 4.9 Albumin 1.8 Imaging Last Impressions Upper Extremity Ultrasound 12/10/16 0000 Signed Impressions: Service Date/Time: Saturday, December 10, 2016 10:29 - CONCLUSION: 1. Partially occlusive thrombus in the brachial vein. Juan Miguel Meeks MD CT Angiography 12/10/16 0000 Signed Impressions: Service Date/Time: Saturday, December 10, 2016 17:02 - CONCLUSION: Large bilateral pleural effusions new from the comparison study with moderate congestive failure. Phoenix Mcknight MD FACR Bone Biopsy CT 12/06/16 1507 Signed Impressions: Service Date/Time: Tuesday, December 06, 2016 15:57 - CONCLUSION: 1. Uncomplicated CT guided bone marrow aspirate. 2. Uncomplicated CT guided bone marrow biopsy. Juan Miguel Meeks MD Abdomen Ultrasound 12/06/16 0000 Signed Impressions: Service Date/Time: Tuesday, December 06, 2016 08:44 - CONCLUSION: 1. Enlarged echogenic liver which can be seen with moderate hepatic steatosis versus status dysfunction 2. Small ascites. 3. Poorly visualized pancreas. 4. Cholelithiasis and gallbladder sludge. Juan Miguel Meeks MD Abdomen/Pelvis CT 12/05/16 0000 Signed Impressions: Service Date/Time: Tuesday, December 06, 2016 18:08 - CONCLUSION: Pleural effusions and lung base atelectasis. Severe hepatic steatosis. Gallstone. Small minor free peritoneal fluid. Talat Irwin MD Head CT 12/04/16 1047 Signed Impressions: Service Date/Time: Sunday, December 04, 2016 11:18 - CONCLUSION: Negative for an acute process.. Phoenix Mcknight MD FACR Chest X-Ray 12/04/16 1047 Signed Impressions: Service Date/Time: Sunday, December 04, 2016 10:44 - CONCLUSION: COPD. No evidence of acute process. Harjinder Stubbs MD Physical Exam HEENT: Normocephalic; atraumatic; no jaundice. CHEST: CTA, diminished CARDIAC: RRR ABDOMEN: Soft, nondistended, nontender; no hepatosplenomegaly; bowel sounds x 4 quadrants. EXTREMITIES: No clubbing, cyanosis, or edema. SKIN: Multiple abrasions, ecchymotic areas CABLE REPAIRER: No focal deficits; lethargic and oriented times three. Assessment and Plan Plan ASSESSMENT: - Severe anemia. Pt has associated leukocytosis and thrombocytosis, concerning for a myeloproliferative disorder. S/P EGD/Colonoscopy to R/O GI blood loss (12/05/16)----> 1. Esophagitis distal esophagus-biopsy, gastritis antrum-biopsy, duodenitis biopsy 2. Retroflexed views revealed a hiatal hernia, 1. Diverticulosis sigmoid,descending 2. Retroflexed views revealed internal hemorrhoids 3. Retroflexed views revealed small internal hemorrhoids 4. Revealed an enlarged prostate. Second portion duodenum, small bowel mucosa with no significant histopathologic abnormalities, the villous architecture is normal, antral mucosa with no significant histopathologic abnormalities, acute esophagitis with ulceration, viral inclusions are not identified. A GMS stain is negative for fungal organisms. Admission HH 5.5/16.7. Absolute Retic 16.7, LDH 255. Haptoglobin 240. B12 > 2000, Folate > 20.0, S/P 4 units PRBC Hematology following, Bone Marrow biopsy (12/06/16), pathology pending. HH stable 10.3/31.4. - Iron saturation 99.0. This was prior to blood transfusions. Previous Hfe gene not detected in 2016. - Diarrhea CDiff (Epid 027 negative), Vibrio. Oral Vanco, Doxycycline, Lactinex. Had one solid stool and one loose stool today. - Elevated LFTs Drinks 1 pint per day. US 12-06-16--> 1. Enlarged echogenic liver which can be seen with moderate hepatic steatosis versus status dysfunction 2. Small ascites. 3. Poorly visualized pancreas. 4. Cholelithiasis and gallbladder sludge. CT abd 12-05-16 ---> Pleural effusions and lung base atelectasis. Severe hepatic steatosis. Gallstone. Small minor free peritoneal fluid. - Thrombocytosis. Plts 1037--->302. These are chronically elevated. Previous JAK2 mutation was negative. Hematology following. Plts 12/10, 190 - Chronic leukocytosis. WBC 24.6. Pt has had intermittent leukocytosis. Hematology following, bone marrow biopsy pending. Cdiff pos, vibrio pos. - Severe electrolyte abnormalities. Per primary. WBC 12/10, 28.5 - ETOH abuse, drinks 1 pint per day. DT precautions per primary PLAN: - HUA - Await pathology from bone marrow biopsy - Abx per ID - Cont. PPI - Monitor HH - Transfuse as necessary - Hematology following - Hydration - Supportive care - Further recommendations to follow based on results of above - PT seen and examined by Dr. Damico and myself and this note is written on his behalf. Karen Eric December 12, 2016 15:48
--- NOTE | 2016-12-12 23:59 | PD.ONC.PN ---
Subjective Subjective Remarks resting comfortably no bleeding Hb stable denies any dyspnea. Bone marrow biopsy results pending Objective Data Date Time Temp Pulse Resp B/P Pulse Ox O2 Delivery O2 Flow Rate FiO2 12/12/16 20:00 97.5 89 18 108/55 95 12/12/16 17:36 92 Nasal Cannula 4.00 12/12/16 16:00 97.8 88 20 103/55 96 12/12/16 12:00 97.5 95 20 111/57 95 12/12/16 10:50 Nasal Cannula 4.00 12/12/16 10:41 92 Nasal Cannula 4.00 12/12/16 08:00 98.0 87 20 126/56 92 12/12/16 04:00 98.2 87 18 115/58 93 12/12/16 00:23 98.4 95 18 104/56 94 12/12/16 12/12/16 12/12/16 07:00 15:00 23:00 Intake Total 360 ml 2 ml Output Total 50 ml Balance -50 ml 360 ml 2 ml Result Diagram: 12/12/16 0712/12/16 0700 Laboratory Results Laboratory Tests Test 12/12/16 07:00 White Blood Count 24.6 TH/MM3 Red Blood Count 3.52 MIL/MM3 Hemoglobin 10.3 GM/DL Hematocrit 31.4 % Mean Corpuscular Volume 89.3 FL Mean Corpuscular Hemoglobin 29.2 PG Mean Corpuscular Hemoglobin 32.7 % Concent Red Cell Distribution Width 19.5 % Platelet Count 225 TH/MM3 Mean Platelet Volume 12.4 FL Neutrophils (%) (Auto) 91.7 % Lymphocytes (%) (Auto) 3.1 % Monocytes (%) (Auto) 2.9 % Eosinophils (%) (Auto) 1.1 % Basophils (%) (Auto) 1.2 % Neutrophils # (Auto) 22.5 TH/MM3 Lymphocytes # (Auto) 0.8 TH/MM3 Monocytes # (Auto) 0.7 TH/MM3 Eosinophils # (Auto) 0.3 TH/MM3 Basophils # (Auto) 0.3 TH/MM3 CBC Comment AUTO DIFF Differential Total Cells 100 Counted Neutrophils % (Manual) 70 % Band Neutrophils % 17 % Lymphocytes % 3 % Monocytes % 4 % Eosinophils % 1 % Basophils % 1 % Neutrophils # (Manual) 22.4 TH/MM3 Metamyelocytes 3 % Myelocytes 1 % Differential Comment FINAL DIFF MANUAL Platelet Estimate NORMAL Platelet Morphology Comment ENLARGED Acanthocytes OCC Sodium Level 141 MEQ/L Potassium Level 3.3 MEQ/L Chloride Level 103 MEQ/L Carbon Dioxide Level 28.7 MEQ/L Anion Gap 9 MEQ/L Blood Urea Nitrogen 14 MG/DL Creatinine 0.87 MG/DL Estimat Glomerular Filtration 88 ML/MIN Rate Random Glucose 83 MG/DL Calcium Level 7.6 MG/DL Magnesium Level 1.3 MG/DL Total Bilirubin 1.1 MG/DL Aspartate Amino Transf 29 U/L (AST/SGOT) Alanine Aminotransferase 21 U/L (ALT/SGPT) Alkaline Phosphatase 101 U/L Total Protein 4.9 GM/DL Albumin 1.8 GM/DL Administered Medications Medications (Trade) Dose Ordered Sig/Irma Route PRN Reason Start Time Stop Time Status Last Admin Dose Admin Sodium Chloride (NS Flush) 2 ml BID IV FLUSH 12/04/16 21:00 12/12/16 21:00 Thiamine HCl (Vitamin B1) 100 mg DAILY PO 12/05/16 09:00 12/12/16 09:53 Lorazepam (Ativan Inj) 1 mg Q4H PRN IV PUSH CIWA 8 - 10 12/04/16 13:30 12/09/16 11:26 Nicotine (Habitrol 21 Mg Patch.24 Hr) 1 patch DAILY T-DERMAL 12/04/16 14:00 12/12/16 09:53 Miscellaneous Information 1 DAILY T-DERMAL 12/05/16 09:00 12/12/16 09:00 Pantoprazole Sodium (Protonix) 20 mg DAILY PO 12/06/16 10:30 12/12/16 09:53 Vancomycin HCl (VANCOMYCIN for oral use only) 125 mg QID PO 12/08/16 21:00 01/09/17 20:59 12/12/16 22:02 Doxycycline Hyclate (Vibratab) 100 mg BID PO 12/09/16 21:00 12/12/16 22:02 Lactobacillus Acidophilus (Lactinex) 1 tab TID PO 12/10/16 09:00 12/12/16 17:15 Enoxaparin Sodium (Lovenox Inj) 60 mg Q12H SQ 12/10/16 18:00 12/12/16 17:15 Objective Remarks GENERAL: nad SKIN: Warm and dry. LYMPHATIC: No adenopathy. CARDIOVASCULAR: Regular rate and rhythm without murmurs. RESPIRATORY: Breath sounds equal bilaterally. GASTROINTESTINAL: Abdomen soft, non-tender, nondistended. EXTREMITIES: No cyanosis, or edema. Assessment/Plan Problem List: (1) Thrombocytosis Status: Acute Plan: --BMB done on 12/06 and pathology is pending --likely d/t myeloproliferative disorder (2) Leukocytosis Status: Chronic Plan: -- BMB done on 12/06, pathology pending --likely due to MPD (3) Severe anemia Status: Acute Plan: -- GI following -- s/p Endoscopy that revealed esophagitis. Assessment 66 y/o with Leukocytosis, severe anemia and thrombocytosis. Plan 1. Hb stable. 2. Final pathology from bone marrow biopsy pending--Further recs based on biopsy results. Problem Qualifiers (1) Leukocytosis: Qualified Code: D72.829 - Leukocytosis, unspecified type Howard Muhammad MD December 12, 2016 23:59
[2016-12-13] VITALS (7 sets, daily range): BP systolic 81–129; BP diastolic 49–86; PULSE 79–91; RESP 18–20; TEMP 97.1–98.1; O2SAT 90–95
[2016-12-13] MEDS: ENOXAPARIN SODIUM 60 MG/0.6 ML SYRINGE SQ SCH ×2 (05:19→17:14)
[2016-12-13 07:33] LABS: HEMATOCRIT 30.6 % (39.0-51.0); MEAN CELL VOLUME 89.2 FL (80.0-100.0); MEAN CORPUSCULAR HEMOGLOBIN 29.1 PG (27.0-34.0); MEAN CORPUSCULAR HGB CONC 32.7 % (32.0-36.0); PLATELET COUNT 292 TH/MM3 (150-450); RED BLOOD COUNT 3.44 MIL/MM3 (4.50-5.90); RED CELL DISTRIBUTION WIDTH 18.7 % (11.6-17.2); WHITE BLOOD COUNT 20.4 TH/MM3 (4.0-11.0)
[2016-12-13 07:35] LABS: HEMO FLAGS AUTO DIFF
[2016-12-13 07:56] LABS: BICARBONATE 29.3 MEQ/L (21.0-32.0); MAGNESIUM 1.1 MG/DL (1.5-2.5); POTASSIUM 3.3 MEQ/L (3.5-5.1)
[2016-12-13] MEDS: VANCOMYCIN 500 MG VIAL (FOR ORAL USE ONLY) PO SCH ×3 (08:51→17:14)
[2016-12-13] MEDS: PANTOPRAZOLE SOD 20 MG DELAYED RELEASE TAB PO SCH (08:51)
[2016-12-13] MEDS: THIAMINE HCL 100 MG TAB PO SCH (08:51)
[2016-12-13] MEDS: SODIUM CHLORIDE 0.9% FLUSH 10 ML FLUSH IV FLUSH SCH (08:51)
[2016-12-13] MEDS: LACTOBACILLUS ACIDOPHILUS TAB PO SCH ×3 (08:51→17:14)
[2016-12-13] MEDS: DOXYCYCLINE HYCLATE 100 MG TAB PO SCH (08:51)
[2016-12-13] MEDS: NICOTINE 21 MG/24 HR PATCH T-DERMAL SCH (08:52)
[2016-12-13] MEDS: REMOVE OLD PATCH T-DERMAL SCH (08:52)
[2016-12-13 08:56] LABS: BANDS 19 % (0-6); BASOPHILS 3 % (0-2); EOSINOPHILS 1 % (0-4); METAMYELOCYTES 5 % (0-1); POLYS (SEG NEUTROPHILS) 64 % (16-70); WBC DIFF SAMPLE 100
[2016-12-13 08:57] LABS: PLATELET ESTIMATE SMEAR NORMAL (NORMAL); PLATELET MORPHOLOGY NORMAL (NORMAL); SCAN/DIFF FINAL DIFF MANUAL
[2016-12-13] MEDS ORDERED: FUROSEMIDE 40 MG TAB PO SCH (09:00)
--- NOTE | 2016-12-13 12:24 | HHI.FPPN ---
Subjective Remarks Patient seen and examined this AM. No acute events overnight. Patient denies fevers, chills, chest pain, SOB at rest, dizziness. He states he has had about 2 BMs over the past day which have been semi-formed. Denies visible blood in stools. He states he continues to feel weak but at about baseline similar to yesterday. Denies any calf pain or lower extremity swelling. (Hieu Montague MD R1) Objective Vitals Vital Signs Date Time Temp Pulse Resp B/P Pulse Ox O2 Delivery O2 Flow Rate FiO2 12/13/16 08:30 Nasal Cannula 4.00 12/13/16 08:00 97.5 91 20 104/55 92 12/13/16 04:00 97.9 79 18 104/52 90 12/13/16 00:00 98.1 81 20 106/55 93 12/12/16 22:01 Nasal Cannula 4.00 12/12/16 20:00 97.5 89 18 108/55 95 12/12/16 17:36 92 Nasal Cannula 4.00 12/12/16 16:00 97.8 88 20 103/55 96 I/O 12/12/16 12/12/16 12/12/16 12/13/16 12/13/16 12/13/16 07:00 15:00 23:00 07:00 15:00 23:00 Intake Total 360 ml 242 ml 122 ml Output Total 50 ml 200 ml 200 ml Balance -50 ml 360 ml 42 ml -78 ml Intake Oral 360 ml 240 ml 120 ml IV Total 2 ml 2 ml Output Urine Total 50 ml 200 ml 200 ml # Voids 1 1 # Bowel Movements 0 1 1 0 (Hieu Montague MD R1) Result Diagram: 12/13/1640 12/13/16 0640 Objective Remarks GENERAL: Elderly male alert lying in bed in no apparent distress. SKIN: Warm and dry. Scattered ecchymoses. HEAD: Atraumatic. Normocephalic. EYES: EOMI. No scleral icterus. No injection or drainage. ENT: No nasal bleeding or discharge. Mucous membranes pink and moist. NECK: Trachea midline. No JVD. CARDIOVASCULAR: Regular rate and rhythm. No murmurs RESPIRATORY: No accessory muscle use. Lung sounds coarse but moving air well. GASTROINTESTINAL: Abdomen soft, non-tender, nondistended. Hepatic and splenic margins not palpable. MUSCULOSKELETAL: Extremities without clubbing, cyanosis, or edema. No obvious deformities. NEUROLOGICAL: Awake and alert. No obvious cranial nerve deficits. Weak. Normal speech. PSYCHIATRIC: Appropriate mood and affect; insight and judgment normal. Procedures EGD/colonoscopy performed on 12/05/16 (Hieu Montague MD R1) A/P Assessment and Plan 66-year-old pleasant male with a history of alcoholism who presented with lower extremity weakness and symptomatic anemia without evidence of shock. He was admitted for management of weakness likely due to symptomatic anemia and found to have significant blood dyscrasias which warranted work up Discharge Planning Stable for discharge today to [facility] (Hieu Montague MD R1) Attending Attestation Patient seen and examined. Case reviewed and discussed with the resident team. Agree with plan of care as discussed with me and documented in the resident note. (Poppy Vernon MD) Problem List: (1) Dyspnea Status: Acute Plan: Patient is more comfortable today and appears to be improved. Etiology likely anemia at first. Now CHF. Plan: * Nasal cannula oxygen supplementation as needed, wean to maintain O2 sats greater than 92% * Per EMR, patient might have COPD; will add Duonebs when necessary. CXR performed in ED was unremarkable * CXR 12/09 showed possible pneumonia vs fluid overload. IV Lasix transitioned to PO 40 mg daily. Unlikely pneumonia as patient has been afebrile. His WBC is elevated at baseline and as his BNP is markedly elevated will treat for fluid overload. Will try to avoid unnecessary abx as he has C diff * CTA showing large bilateral pleural effusions new from previous comparison study, no PE * Continue therapeutic Lovenox as below for left brachial vein thrombus (2) Severe anemia Status: Acute Plan: Anemia is improved at this time, Hgb stable at 10.0. Concern for possible leukemia versus other form of bone marrow etiology. Bone marrow preliminary results from pathologist is negative for leukemia. Patient will follow up as outpatient with Hem/Onc Plan: * Status post 2 units of blood transfused on 12/04, and 2 more units on 12/05, leuko -reduced * Isotonic IVF at 100 mL/hour with 40 mEq potassium per liter stopped * Will monitor fluid status closely, noted to have significant hypokalemia on admission probably from poor po intake * Gastroenterology consult to assess for possible GI acute versus chronic losses , panendoscopy performed with no active bleeding * Hematology consult to assess blood dyscrasia as patient also has significant leukocytosis and thrombocytosis. His reticulocyte count is low. This could possibly be related to intrinsic bone marrow disorder or malignancy; was recommended the patient get bone marrow biopsy in past evaluation but patient declined. He will have this done during this hospitalization. * Bone marrow results preliminary as above; flow cytometry showing myeloproliferative disorder (3) Brachial vein thrombus, left Status: Acute Plan: Upper extremity US showing partially occlusive thrombus in left brachial vein Patient was started on therapeutic Lovenox on 12/10 (4) Vibrio cholera infection Status: Acute Plan: Continue doxycycline 100mg BID PO, start date 12/07, end date 12/21. Hospital course: Patient is noted to have Vibrio of unknown species on stool study collected . This is possibly contributing to diarrhea which now seems to have resolved. He was started on doxycycline PO on 12/07. Infectious disease was consulted, appreciate recs (5) Clostridium difficile diarrhea Status: Acute Plan: Continue vancomycin PO 125mg PO QID, per infectious disease recommendations. The stop date for this will 01/09/17 per ID Hospital course: * Noted to have stool positive for C difficile on 12/06 specimen and diarrhea. This is after panendoscopy, which was not notable for colitis. Diarrhea noted to be improved on 12/08 * PO Flagyl on 12/07, reported decreased appetite, switched to by PO Vanc on 12/08 (6) Weakness of both lower extremities Status: Acute Plan: Plan: * Corrected anemia as above * Replete electrolytes and monitor levels * PT assessment and continued evaluation, currently recommending rehabilitation with wheeled walker which was ordered * Monitor neuro exam * suspect weakness due to underlying hematologic problems Hospital Course: Patient presented with two-week history of falls related to lower extremity weakness. This is likely related to alcoholism and symptomatic anemia. He also has metabolic disturbances, most notably hypokalemia and hypomagnesemia. Patient is neurologically normal and lower extremities have normal strength on exam. CT of the head was performed in ED and showed no evidence of acute bleed. (7) Leukocytosis Status: Chronic Plan: Plan: * Treat C diff as this could be contributing * Monitor CBC, sx, vitals * Hematology consult as above Hospital Course: Patient noted to have a significant leukocytosis on admission. This is chronic, with WBC noted to be as high as 33K in late 2016. Patient was evaluated by medical oncology at that time and bone marrow biopsy was recommended which patient declined. There is no evidence of infection. (8) Platelet disorder Status: Resolved Plan: Chronic thrombocytosis, work-up and management as above. (9) Alcoholism Status: Chronic Plan: Chronic alcoholism noted. He claims to drink a pint of rum daily and notes that he has never fully stopped alcohol intake. Denies history of seizure. Plan: * [facility] protocol * Folate, thiamine, multivitamin by mouth * Seizure precautions per [facility] * Glucose monitoring per [facility] * Managed electrolytes as above * Case management consult (10) Tobacco abuse Status: Chronic Plan: Chronic. Almost 2 packs per day smoking history Nicotine high-dose patch (11) Fluids/Electrolytes/Nutrition/Prophylaxis Status: Acute Plan: Fluids: po Electrolytes: monitor and replete as needed Nutrition: regular diet with added ensure DVT Prophylaxis: Patient on therapeutic Lovenox GI prophylaxis: Protonix (Hieu Montague MD R1) Problem Qualifiers (1) Dyspnea: Qualified Code: R06.09 - Dyspnea on exertion (2) Leukocytosis: Qualified Code: D72.829 - Leukocytosis, unspecified type Hieu Montague MD R1 December 13, 2016 12:16 Poppy Vernon MD December 18, 2016 09:02
[2016-12-13] MEDS ORDERED: MAGNESIUM OXIDE 400 MG TAB PO ONE (13:00)
[2016-12-13] MEDS ORDERED: POTASSIUM CHLORIDE 10 MEQ CONTROLLED RELEASE TAB PO ONE (13:00)
--- NOTE | 2016-12-13 13:51 | HHI.DCPOC ---
Discharge Care Plan Diagnosis: (1) Weakness of both lower extremities (2) Severe anemia (3) Brachial vein thrombus, left (4) Clostridium difficile diarrhea (5) Leukocytosis (6) Dyspnea (7) Vibrio cholera infection (8) Alcoholism (9) Symptomatic anemia (10) Hypokalemia (11) Chronic obstructive pulmonary disease (12) Thrombocytosis (13) Platelet disorder Goals to Promote Your Health * To prevent worsening of your condition and complications and to maintain your health at the optimal level, follow up with your primary care physician and hematology doctor. Directions to Meet Your Goals Take your medications as prescribed Follow your dietary instruction Follow activity as directed Keep your appointments as scheduled Take your immunizations and boosters as scheduled If your symptoms worsen call your PCP, if no PCP go to Urgent Care Center or Emergency Room Smoking is Dangerous to Your Health. Avoid second hand smoke Call the 24-hour hour crisis hotline for domestic abuse at Hieu Montague MD R1 December 13, 2016 13:51
[2016-12-13] MEDS ORDERED: NICO21DI2 T-DERMAL (14:00)
[2016-12-13] MEDS ORDERED: IPRASOL NEB (14:00)
[2016-12-13] MEDS ORDERED: VITA100T2 PO (14:00)
[2016-12-13] MEDS ORDERED: FURO40TA PO (14:00)
[2016-12-13] MEDS ORDERED: DOXY100T PO (14:00)
[2016-12-13] MEDS ORDERED: LACT PO (14:00)
[2016-12-13] MEDS ORDERED: ENOX60P SQ (14:00)
[2016-12-13] MEDS ORDERED: VANC500I3 PO (14:01)
[2016-12-13] MEDS ORDERED: POTA-163 PO (14:01)
[2016-12-13] MEDS ORDERED: SODIUM CHLOR 0.9% 250 ML INJ 250 ML IV ONE (14:15)
--- NOTE | 2016-12-14 18:24 | HHI.DS ---
Discharge Summary Admission Date December 04, 2016 at 12:47 Discharge Date: December 13, 2016 Admitting Diagnosis symptomatic anemia, thrombocytosis, leukocytosis, hypokalemia (1) Severe anemia Diagnosis: Principal Plan: Anemia is improved at this time, Hgb stable at 10.0. Concern for possible leukemia versus other form of bone marrow etiology. Bone marrow preliminary results from pathologist is negative for leukemia. Patient will follow up as outpatient with Hem/Onc Plan: * Status post 2 units of blood transfused on 12/04, and 2 more units on 12/05, leuko -reduced * Isotonic IVF at 100 mL/hour with 40 mEq potassium per liter stopped * Will monitor fluid status closely, noted to have significant hypokalemia on admission probably from poor po intake * Gastroenterology consult to assess for possible GI acute versus chronic losses , panendoscopy performed with no active bleeding * Hematology consult to assess blood dyscrasia as patient also has significant leukocytosis and thrombocytosis. His reticulocyte count is low. This could possibly be related to intrinsic bone marrow disorder or malignancy; was recommended the patient get bone marrow biopsy in past evaluation but patient declined. He will have this done during this hospitalization. * Bone marrow results preliminary as above; flow cytometry showing myeloproliferative disorder (2) Brachial vein thrombus, left Diagnosis: Principal Plan: Upper extremity US showing partially occlusive thrombus in left brachial vein Patient was started on therapeutic Lovenox on 12/10 (3) Vibrio cholera infection Diagnosis: Principal Plan: Continue doxycycline 100mg BID PO, start date 12/07, end date 12/21. Hospital course: Patient is noted to have Vibrio of unknown species on stool study collected . This is possibly contributing to diarrhea which now seems to have resolved. He was started on doxycycline PO on 12/07. Infectious disease was consulted, appreciate recs (4) Clostridium difficile diarrhea Diagnosis: Principal Plan: Continue vancomycin PO 125mg PO QID, per infectious disease recommendations. The stop date for this will 01/09/17 per ID Hospital course: * Noted to have stool positive for C difficile on 12/06 specimen and diarrhea. This is after panendoscopy, which was not notable for colitis. Diarrhea noted to be improved on 12/08 * PO Flagyl on 12/07, reported decreased appetite, switched to by PO Vanc on 12/08 (5) Dyspnea Diagnosis: Principal Plan: Patient is more comfortable today and appears to be improved. Etiology likely anemia at first. Now CHF. Plan: * Nasal cannula oxygen supplementation as needed, wean to maintain O2 sats greater than 92% * Per EMR, patient might have COPD; will add Duonebs when necessary. CXR performed in ED was unremarkable * CXR 12/09 showed possible pneumonia vs fluid overload. IV Lasix transitioned to PO 40 mg daily. Unlikely pneumonia as patient has been afebrile. His WBC is elevated at baseline and as his BNP is markedly elevated will treat for fluid overload. Will try to avoid unnecessary abx as he has C diff * CTA showing large bilateral pleural effusions new from previous comparison study, no PE * Continue therapeutic Lovenox as below for left brachial vein thrombus (6) Weakness of both lower extremities Diagnosis: Principal Plan: Plan: * Corrected anemia as above * Replete electrolytes and monitor levels * PT assessment and continued evaluation, currently recommending rehabilitation with wheeled walker which was ordered * Monitor neuro exam * suspect weakness due to underlying hematologic problems Hospital Course: Patient presented with two-week history of falls related to lower extremity weakness. This is likely related to alcoholism and symptomatic anemia. He also has metabolic disturbances, most notably hypokalemia and hypomagnesemia. Patient is neurologically normal and lower extremities have normal strength on exam. CT of the head was performed in ED and showed no evidence of acute bleed. (7) Leukocytosis Diagnosis: Principal Plan: Plan: * Treat C diff as this could be contributing * Monitor CBC, sx, vitals * Hematology consult as above Hospital Course: Patient noted to have a significant leukocytosis on admission. This is chronic, with WBC noted to be as high as 33K in late 2016. Patient was evaluated by medical oncology at that time and bone marrow biopsy was recommended which patient declined. There is no evidence of infection. (8) Platelet disorder Diagnosis: Principal Plan: Chronic thrombocytosis, work-up and management as above. (9) Alcoholism Diagnosis: Secondary Plan: Chronic alcoholism noted. He claims to drink a pint of rum daily and notes that he has never fully stopped alcohol intake. Denies history of seizure. [facility] protocol Folate, thiamine, multivitamin by mouth Consultants Hematology, Infectious disease, Gastroenterology Procedures EGD/colonoscopy Bone marrow biopsy Brief History Mr Uribe is a 66 year old male with a PMH significant for alcoholism and chronic anemia who presents with two-week history of bilateral LE weakness and falls. He has fallen 6 times in the last week due to "legs gave out." He has no preceding dizziness, headache, chest pain, palpitations, or paresthesias. He is able to walk normally at baseline but legs suddenly give out. He falls down and hit his head on the pavement, and has had no LOC ever. He does endorse some shortness of breath over the last couple of weeks as well. He feels tremulous after the episodes and is told he looks pale afterward. He has chronic bowel incontinence intermittently but denies loss of urine during falls. He denies upper extremity or focal weakness. No sick contacts or recent illnesses. He has a history of anemia per EMR last hospitalization in March 2016 at [facility] and patient states he recalls this vaguely. He recalls getting a transfusion at that time. Denies any current bleeding episodes, however, he does note having black stools with last few months. He reports not eating well due to poor appetite chronically. He has never had a colonoscopy. On review of records, patient was evaluated by medical oncology in February 2016; extensive workup was initiated including infectious workup, hematologic workup. He received 2 units of PRBCs. A bone marrow biopsy was recommended at that time and patient declined. This hospitalization he has agreed to do more workup and is getting a bone marrow biopsy and panendoscopy. He does feel better after the blood transfusions. CBC/BMP: 12/13/16 0640 12/13/16 0640 Significant Findings Laboratory Tests Test 12/12/16 12/13/16 07:00 06:40 White Blood Count 24.6 TH/MM3 20.4 TH/MM3 (4.0-11.0) (4.0-11.0) Red Blood Count 3.52 MIL/MM3 3.44 MIL/MM3 (4.50-5.90) (4.50-5.90) Hemoglobin 10.3 GM/DL 10.0 GM/DL (13.0-17.0) (13.0-17.0) Hematocrit 31.4 % 30.6 % (39.0-51.0) (39.0-51.0) Mean Corpuscular Volume 89.3 FL 89.2 FL (80.0-100.0) (80.0-100.0) Mean Corpuscular Hemoglobin 29.2 PG 29.1 PG (27.0-34.0) (27.0-34.0) Mean Corpuscular Hemoglobin 32.7 % 32.7 % Concent (32.0-36.0) (32.0-36.0) Red Cell Distribution Width 19.5 % 18.7 % (11.6-17.2) (11.6-17.2) Platelet Count 225 TH/MM3 292 TH/MM3 (150-450) (150-450) Mean Platelet Volume 12.4 FL 12.2 FL (7.0-11.0) (7.0-11.0) Neutrophils (%) (Auto) 91.7 % % (16.0-70.0) (16.0-70.0) Lymphocytes (%) (Auto) 3.1 % % (9.0-44.0) (9.0-44.0) Monocytes (%) (Auto) 2.9 % (0.0-8.0) % (0.0-8.0) Eosinophils (%) (Auto) 1.1 % (0.0-4.0) % (0.0-4.0) Basophils (%) (Auto) 1.2 % (0.0-2.0) % (0.0-2.0) Neutrophils # (Auto) 22.5 TH/MM3 TH/MM3 (1.8-7.7) (1.8-7.7) Lymphocytes # (Auto) 0.8 TH/MM3 TH/MM3 (1.0-4.8) (1.0-4.8) Monocytes # (Auto) 0.7 TH/MM3 TH/MM3 (0-0.9) (0-0.9) Eosinophils # (Auto) 0.3 TH/MM3 TH/MM3 (0-0.4) (0-0.4) Basophils # (Auto) 0.3 TH/MM3 TH/MM3 (0-0.2) (0-0.2) CBC Comment AUTO DIFF AUTO DIFF Differential Total Cells 100 100 Counted Neutrophils % (Manual) 70 % (16-70) 64 % (16-70) Band Neutrophils % 17 % (0-6) 19 % (0-6) Lymphocytes % 3 % (9-44) 7 % (9-44) Monocytes % 4 % (0-8) 1 % (0-8) Eosinophils % 1 % (0-4) 1 % (0-4) Basophils % 1 % (0-2) 3 % (0-2) Neutrophils # (Manual) 22.4 TH/MM3 18.0 TH/MM3 (1.8-7.7) (1.8-7.7) Metamyelocytes 3 % (0-1) 5 % (0-1) Myelocytes 1 % (0-0) Differential Comment FINAL DIFF FINAL DIFF MANUAL MANUAL Platelet Estimate NORMAL NORMAL (NORMAL) (NORMAL) Platelet Morphology Comment ENLARGED NORMAL (NORMAL) (NORMAL) Acanthocytes OCC (NORMAL) Sodium Level 141 MEQ/L 143 MEQ/L (136-145) (136-145) Potassium Level 3.3 MEQ/L 3.3 MEQ/L (3.5-5.1) (3.5-5.1) Chloride Level 103 MEQ/L 105 MEQ/L (98-107) (98-107) Carbon Dioxide Level 28.7 MEQ/L 29.3 MEQ/L (21.0-32.0) (21.0-32.0) Anion Gap 9 MEQ/L (5-15) 9 MEQ/L (5-15) Blood Urea Nitrogen 14 MG/DL (7-18) 14 MG/DL (7-18) Creatinine 0.87 MG/DL 0.72 MG/DL (0.60-1.30) (0.60-1.30) Estimat Glomerular Filtration 88 ML/MIN (>89) 109 ML/MIN Rate (>89) Random Glucose 83 MG/DL 80 MG/DL (74-106) (74-106) Calcium Level 7.6 MG/DL 7.5 MG/DL (8.5-10.1) (8.5-10.1) Magnesium Level 1.3 MG/DL 1.1 MG/DL (1.5-2.5) (1.5-2.5) Total Bilirubin 1.1 MG/DL (0.2-1.0) Aspartate Amino Transf 29 U/L (15-37) (AST/SGOT) Alanine Aminotransferase 21 U/L (12-78) (ALT/SGPT) Alkaline Phosphatase 101 U/L (45-117) Total Protein 4.9 GM/DL (6.4-8.2) Albumin 1.8 GM/DL (3.4-5.0) Laboratory Tests Test 12/12/16 12/13/16 07:00 06:40 White Blood Count 24.6 TH/MM3 20.4 TH/MM3 (4.0-11.0) (4.0-11.0) Red Blood Count 3.52 MIL/MM3 3.44 MIL/MM3 (4.50-5.90) (4.50-5.90) Hemoglobin 10.3 GM/DL 10.0 GM/DL (13.0-17.0) (13.0-17.0) Hematocrit 31.4 % 30.6 % (39.0-51.0) (39.0-51.0) Red Cell Distribution Width 19.5 % 18.7 % (11.6-17.2) (11.6-17.2) Mean Platelet Volume 12.4 FL 12.2 FL (7.0-11.0) (7.0-11.0) Neutrophils (%) (Auto) 91.7 % (16.0-70.0) Lymphocytes (%) (Auto) 3.1 % (9.0-44.0) Neutrophils # (Auto) 22.5 TH/MM3 (1.8-7.7) Lymphocytes # (Auto) 0.8 TH/MM3 (1.0-4.8) Basophils # (Auto) 0.3 TH/MM3 (0-0.2) Band Neutrophils % 17 % (0-6) 19 % (0-6) Lymphocytes % 3 % (9-44) 7 % (9-44) Neutrophils # (Manual) 22.4 TH/MM3 18.0 TH/MM3 (1.8-7.7) (1.8-7.7) Metamyelocytes 3 % (0-1) 5 % (0-1) Myelocytes 1 % (0-0) Platelet Morphology Comment ENLARGED (NORMAL) Potassium Level 3.3 MEQ/L 3.3 MEQ/L (3.5-5.1) (3.5-5.1) Estimat Glomerular Filtration 88 ML/MIN (>89) Rate Calcium Level 7.6 MG/DL 7.5 MG/DL (8.5-10.1) (8.5-10.1) Magnesium Level 1.3 MG/DL 1.1 MG/DL (1.5-2.5) (1.5-2.5) Total Bilirubin 1.1 MG/DL (0.2-1.0) Total Protein 4.9 GM/DL (6.4-8.2) Albumin 1.8 GM/DL (3.4-5.0) Basophils % 3 % (0-2) PE at Discharge GENERAL: Elderly male alert lying in bed in no apparent distress. SKIN: Warm and dry. Scattered ecchymoses. HEAD: Atraumatic. Normocephalic. EYES: EOMI. No scleral icterus. No injection or drainage. ENT: No nasal bleeding or discharge. Mucous membranes pink and moist. NECK: Trachea midline. No JVD. CARDIOVASCULAR: Regular rate and rhythm. No murmurs RESPIRATORY: No accessory muscle use. Lung sounds coarse but moving air well. GASTROINTESTINAL: Abdomen soft, non-tender, nondistended. Hepatic and splenic margins not palpable. MUSCULOSKELETAL: Extremities without clubbing, cyanosis, or edema. No obvious deformities. NEUROLOGICAL: Awake and alert. No obvious cranial nerve deficits. Weak. Normal speech. PSYCHIATRIC: Appropriate mood and affect; insight and judgment normal. Hospital Course 66-year-old male with history of alcoholism and prior workup for blood dyscrasia who was admitted on 12/04 with complaints of lower extremity weakness and workup findings showing severe anemia, H/H5.5/16.7. Initial workup also showed marked leukocytosis and thrombocytosis. Hematology was consulted given history of blood dyscrasia not fully worked up. A full workup for anemia with leukocytosis, thrombocytosis was performed in a previous hospital stay in 03/2016 by hematology which was negative for HIV, hemochromatosis, and other potential causes of his symptoms. Bone marrow biopsy was performed on 12/06 and preliminary results per pathologist is tentative negative for myeloproliferative neoplasm; report states that the cellular bone marrow has features suggestive of a myeloproliferative neoplasm however the patient had a previous workup including BCR-ABL FISH and [id number], MPL, and CALR have all been negative. Patient will require follow up with a creative guru/ oncologist as this may suggest an unclassifiable myeloproliferative neoplasm and correlation with cytogenetics is needed. Colonoscopy and EGD on 12/05/16 significant for esophagitis, gastritis, duodenitis. He also was noted to have diverticulosis of the sigmoid colon. No colitis was noted. He was found to have positive C. difficile toxin and Vibrio. Patient was started on doxycycline and PO vancomycin. He has a history of poor nutrition. Electrolytes are notable for hypokalemia, hypomagnesemia and hypophosphatemia. US Liver 12/06 showing severe hepatic steatosis, cholelithiasis, small minor free peritoneal fluid, pleural effusions , lung base atelectasis. He was found to have a partially occlusive right brachial DVT on 12/10. Therapeutic Lovenox was started at 60 mg subcutaneous BID on 12/10. CT angiogram to rule out PE was negative. Patient will be discharged to his SNF continued on therapeutic Lovenox and may be bridged to oral anticoagulation pending further placement. Pt Condition on Discharge: Stable Discharge Disposition: Discharge to SNF Discharge Instructions DIET: Follow Instructions for: Heart Healthy Diet Activities you can perform: See Additionl Instruction (Patient requires assistance ambulating) Other Activity Instructions: Continue to work with physical therapy to increase strength. Always ask for assistance when walking or getting up out of bed to prevent falls. Follow up Referrals: Hematology - 1 Week PCP Follow-up - 1 Week New Orders: BASIC METABOLIC PROF - 3-5 Days CBC WITH DIFF - 3-5 Days New Medications: Potassium Chloride ER (Potassium Chloride ER) 20 Meq Tab 20 MEQ PO DAILY Electrolyte Replacement #30 Ref 0 TAB Walker with Front Wheels (Walker with Front Wheels) 1 Mis Mis 1 EA .ROUTE DIRECTED #1 Ref 0 EA Doxycycline Hyclate (Doxycycline Hyclate) 100 Mg Tab 100 MG PO BID Days 8 TAB Enoxaparin Inj (Lovenox Inj) 60 Mg/0.6 Ml Syr 60 MG SQ Q12H Days 87 INJECTION Furosemide (Furosemide) 40 Mg Tab 40 MG PO DAILY #30 TAB Ipratropium-Albuterol Neb (Duoneb) 0.5-2.5 Mg/3 Ml Neb 1 AMPULE NEB Q4HR WHILE AWAKE NEB PRN SOB/WHEEZING #30 ML Lactobacillus Acidophilus (Acidophilus/l-Sporogenes) 1 Tab Tab 1 TAB PO TID #90 TAB Nicotine Patch (Nicotine Patch) 21 Mg/24 Hr Patch 1 PATCH T-DERMAL DAILY #14 Thiamine (Vitamin B-1) 100 Mg Tab 100 MG PO DAILY #30 TAB Vancomycin Inj (Vancomycin Inj) 500 Mg Inj 125 MG PO QID Days 27 INJECTION Hieu Montague MD R1 December 14, 2016 18:24
== END 2016-12-13 18:24 | DRG 841 ==
LOC: NEPE 10:32 → NEDA 12:47 → N04A 15:30
PROVIDERS: ADMIT Family Medicine; ATTEND Family Medicine
PROC: 30233N1 Transfusion of Nonautologous Red Blood Cells into Peripheral Vein, Percutaneous Approach (ICD-10-PCS; principal; 2016-12-04)
PROC: 0DB98ZX Excision of Duodenum, Via Natural or Artificial Opening Endoscopic, Diagnostic (ICD-10-PCS; 2016-12-05)
PROC: 0DB68ZX Excision of Stomach, Via Natural or Artificial Opening Endoscopic, Diagnostic (ICD-10-PCS; 2016-12-05)
PROC: 0DB38ZX Excision of Lower Esophagus, Via Natural or Artificial Opening Endoscopic, Diagnostic (ICD-10-PCS; 2016-12-05)
PROC: 0DJD8ZZ Inspection of Lower Intestinal Tract, Via Natural or Artificial Opening Endoscopic (ICD-10-PCS; 2016-12-05)
PROC: 07DR3ZX Extraction of Iliac Bone Marrow, Percutaneous Approach, Diagnostic (ICD-10-PCS; 2016-12-06)
DX: C94.6 Myelodysplastic disease, not elsewhere classified (principal); I82.622 Acute embolism and thrombosis of deep veins of left upper extremity; A04.7 Enterocolitis due to Clostridium difficile; I50.9 Heart failure, unspecified; K76.0 Fatty (change of) liver, not elsewhere classified; D64.9 Anemia, unspecified; E83.42 Hypomagnesemia; J44.9 Chronic obstructive pulmonary disease, unspecified; E83.39 Other disorders of phosphorus metabolism; F17.210 Nicotine dependence, cigarettes, uncomplicated; R29.6 Repeated falls; E87.6 Hypokalemia; F10.20 Alcohol dependence, uncomplicated; R15.9 Full incontinence of feces; D75.89 Other specified diseases of blood and blood-forming organs; K57.30 Diverticulosis of large intestine without perforation or abscess without bleeding; K20.9 Esophagitis, unspecified; K29.70 Gastritis, unspecified, without bleeding; K29.80 Duodenitis without bleeding; K44.9 Diaphragmatic hernia without obstruction or gangrene; K64.8 Other hemorrhoids; N40.0 Benign prostatic hyperplasia without lower urinary tract symptoms; K80.20 Calculus of gallbladder without cholecystitis without obstruction; B96.82 Vibrio vulnificus as the cause of diseases classified elsewhere
CPT/HCPCS: 36430; 38221; 70450; 71010; 71275; 74177; 76700; 76937; 77012; 80048; 80053; 80307; 81001; 82550; 82607; 82728; 82746; 82805; 82948; 83010; 83540; 83550; 83605; 83615; 83735; 83880; 84100; 84155; 84443; 84484; 85007; 85014; 85018; 85027; 85044; 85060; 85097; 85610; 85730; 86850; 86900; 86901; 86920; 87205; 87207; 87328; 87329; 87493; 87506; 88184; 88185; 88237; 88264; 88280; 88305; 88311; 88312; 88313; 93005; 93306; 93971; 94150; 94640; 94664; 94667; 94668; 96360; 99152; 99153; C1830; G0364; J1200; J1644; J1650; J1940; J2060; J2250; J3010; J3475; J3480; J7030; J7050; P9016; Q9963; Q9967